=== PATIENT | female | born 2000 | race Caucasian/White ===

== ENCOUNTER 2023-11-06 13:27 | Outpatient (CLI) | payer BC, OTHER, SELFPAY ==
[2023-11-06 14:15] VITALS: BMI 41.1
[2023-11-06 14:24] VITALS: BMI 41.1
[2023-11-06 15:00] LABS: Basophils % 0.2 % (0.1-2.0); Eosinophils # 0.1 K/mm3 (0.0-0.4); Eosinophils % 0.9 % (0.1-12.0); Hematocrit 35.8 % (37.0-47.0); Hemoglobin 12.2 g/dL (12.2-16.2); Lymphocytes # 1.1 K/mm3 (0.7-4.5); Lymphocytes % 17.5 % (10-50); Mean Corpuscular HGB Conc 34.2 g/dL (31.8-35.4); Mean Corpuscular Hemoglobin 29.2 pg (27.0-31.2); Mean Corpuscular Volume 85.5 fl (81-99); Mean Platelet Volume 8.4 fl (7.4-10.4); Monocytes # 0.3 K/mm3 (0.1-1.0); Monocytes % 4.1 % (1.7-9.3); Neutrophils # 4.9 K/mm3 (1.8-7.8); Neutrophils % 77.3 % (37.0-80.0); Platelet Count 213 K/mm3 (142-424); Red Blood Count 4.19 M/mm3 (4.20-5.40); Red Cell Distribution Width 15.2 % (11.5-17.5); White Blood Count 6.4 K/mm3 (4.8-10.8)
[2023-11-06 15:07] LABS: Microscopic, Urine URINE MICROSCOPIC (MICROSCOPIC)
[2023-11-06 15:11] LABS: Fetal Membrane Rupture (Rapid) Negative (Negative)
[2023-11-06 15:28] LABS: Appearance,Urine CLEAR (Clear); Bilirubin,Urine Negative (Negative); Blood, Urine Negative (Negative); Color,Urine YELLOW (Yellow); Glucose,Urine (UA) Negative (Negative); Ketones,Urine 1+ (Negative); Leukocyte Esterase,Urine Negative (Negative); Nitrate,Urine Negative (Negative); PH,Urine 7.5 (5.0-8.5); Protein,Urine 2+ (Negative); Urobilinogen,Urine 0.2 EU/dl (0.2)
[2023-11-06 15:54] LABS: WBC,Urine Occasional #/hpf (0-3)
[2023-11-06 15:59] LABS: Amphetamine/Metha Screen,Urine Negative ng/ml (<1000); Benzodiazepines Screen,Urine Negative ng/ml (<200)
[2023-11-06 16:00] LABS: Barbiturates Screen,Urine Negative ng/ml (<200)
[2023-11-06 16:01] LABS: Cannabinoid Screen,Urine Negative ng/ml (<50); Methadone Screen,Urine Negative ng/ml (<300)
[2023-11-06 16:02] LABS: Cocaine Screen,Urine Negative ng/ml (<300)
[2023-11-06 16:03] LABS: Opiate Screen,Urine Negative ng/ml (<300); Phencyclidine Screen,Urine Negative ng/ml (<25)
[2023-11-08 06:05] LABS: Hepatitis B Surface Antigen Negative (Negative)
[2023-11-08 07:18] LABS: Rapid Plasma Reagin Ab Titer Non Reactive titer (NonRea<1:1)
[2023-11-08 11:12] LABS: HIV Screen 4th Generation wRfx Non Reactive (Non Reactive)
== END 2023-11-06 16:10 | disposition home or self-care (01) ==
LOC: OBOUT 13:35 → OB 13:37
PROVIDERS: Visit Provider Obstetrics & Gynecology
DX: O26.893 Other specified pregnancy related conditions, third trimester (principal); Z3A.36 36 weeks gestation of pregnancy
CPT/HCPCS: 36415; 59025; 80307; 81001; 84112; 85025; 86593; 86762; 86850; 87340; G0463

== ENCOUNTER 2023-11-09 22:24 | Outpatient (CLI) | payer BC, OTHER, SELFPAY ==
[2023-11-09 22:28] VITALS: BMI 41.1
[2023-11-09 22:38] LABS: Microscopic, Urine URINE MICROSCOPIC (MICROSCOPIC)
[2023-11-09 22:52] LABS: Appearance,Urine CLEAR (Clear); Bilirubin,Urine Negative (Negative); Blood, Urine Negative (Negative); Color,Urine YELLOW (Yellow); Glucose,Urine (UA) Negative (Negative); Ketones,Urine Negative (Negative); Leukocyte Esterase,Urine Negative (Negative); Nitrate,Urine Negative (Negative); PH,Urine 7.5 (5.0-8.5); Protein,Urine TRACE (Negative); Urobilinogen,Urine 0.2 EU/dl (0.2)
[2023-11-09 22:59] VITALS: BP 132/77; PULSE 79; RESP 18; TEMP 36.6; O2SAT 98; BMI 41.1
[2023-11-09 23:02] LABS: Bacteria,Urine Trace /lpf; WBC,Urine Occasional #/hpf (0-3)
[2023-11-09 23:03] LABS: Amphetamine/Metha Screen,Urine Negative ng/ml (<1000); Barbiturates Screen,Urine Negative ng/ml (<200)
[2023-11-09 23:04] LABS: Benzodiazepines Screen,Urine Negative ng/ml (<200)
[2023-11-09 23:05] LABS: Cannabinoid Screen,Urine Negative ng/ml (<50); Cocaine Screen,Urine Negative ng/ml (<300)
[2023-11-09 23:06] LABS: Methadone Screen,Urine Negative ng/ml (<300); Phencyclidine Screen,Urine Negative ng/ml (<25)
[2023-11-09 23:07] LABS: Opiate Screen,Urine Negative ng/ml (<300)
== END 2023-11-09 23:45 | disposition home or self-care (01) ==
LOC: OBOUT 22:25 → OB 22:26
PROVIDERS: PCP Obstetrics & Gynecology; Visit Provider Obstetrics & Gynecology
DX: O47.03 False labor before 37 completed weeks of gestation, third trimester (principal); Z3A.36 36 weeks gestation of pregnancy
CPT/HCPCS: 59025; 80307; 81001; G0463

== ENCOUNTER 2023-11-19 16:21 | Outpatient (CLI) | payer BC, SELFPAY ==
[2023-11-19 16:35] VITALS: BMI 41.1
[2023-11-19 16:40] LABS: Microscopic, Urine URINE MICROSCOPIC (MICROSCOPIC)
[2023-11-19 16:41] LABS: Appearance,Urine SL CLOUDY (Clear); Blood, Urine Negative (Negative); Color,Urine YELLOW (Yellow); Glucose,Urine (UA) Negative (Negative); Ketones,Urine 1+ (Negative); Leukocyte Esterase,Urine TRACE (Negative); Nitrate,Urine Negative (Negative); PH,Urine 6.5 (5.0-8.5); Protein,Urine 3+ (Negative); Specific Gravity, Urine 1.025 (1.005-1.030)
[2023-11-19 16:43] LABS: Bilirubin,Urine 2+ (Negative)
[2023-11-19 16:54] LABS: Amphetamine/Metha Screen,Urine Negative ng/ml (<1000)
[2023-11-19 16:55] LABS: Barbiturates Screen,Urine Negative ng/ml (<200); Benzodiazepines Screen,Urine Negative ng/ml (<200)
[2023-11-19 16:56] LABS: Cannabinoid Screen,Urine Negative ng/ml (<50)
[2023-11-19 16:57] LABS: Cocaine Screen,Urine Negative ng/ml (<300); Methadone Screen,Urine Negative ng/ml (<300)
[2023-11-19 16:58] LABS: Opiate Screen,Urine Negative ng/ml (<300); Phencyclidine Screen,Urine Negative ng/ml (<25)
[2023-11-19 17:00] VITALS: BP 131/84; PULSE 94; RESP 18; TEMP 37; O2SAT 94; BMI 41.1
[2023-11-19 17:10] LABS: RBC,Urine Occasional #/hpf (0-3); WBC,Urine Occasional #/hpf (0-3)
== END 2023-11-19 18:20 | disposition home or self-care (01) ==
LOC: OBOUT 16:23 → OB 16:23
PROVIDERS: Visit Provider Obstetrics & Gynecology
DX: O60.03 Preterm labor without delivery, third trimester (principal); Z3A.38 38 weeks gestation of pregnancy
CPT/HCPCS: 59025; 80307; 81001; G0463

== ENCOUNTER 2023-11-20 21:15 | Outpatient (CLI) | payer BC, OTHER, SELFPAY | END 2023-11-20 23:59 | PROVIDERS: PCP Obstetrics & Gynecology; Visit Provider Obstetrics & Gynecology | DX: Z34.93 Encounter for supervision of normal pregnancy, unspecified, third trimester (principal); Z3A.38 38 weeks gestation of pregnancy | CPT/HCPCS: 86403; 87086 ==

== ENCOUNTER 2023-11-21 10:02 | Outpatient (CLI) | payer BC, OTHER, SELFPAY ==
[2023-11-21 11:24] LABS: Thyroid Stimulating Hormone 4.54 uIU/mL (0.465-4.68)
== END 2023-11-21 23:59 ==
PROVIDERS: Visit Provider Obstetrics & Gynecology
DX: E06.3 Autoimmune thyroiditis (principal); O99.283 Endocrine, nutritional and metabolic diseases complicating pregnancy, third trimester; Z3A.38 38 weeks gestation of pregnancy
CPT/HCPCS: 36415; 84443

== ENCOUNTER 2023-11-22 05:40 | Outpatient (CLI) | payer BC, OTHER, SELFPAY ==
[2023-11-22 06:20] VITALS: BMI 42.9
[2023-11-22 06:44] LABS: Fetal Membrane Rupture (Rapid) Negative (Negative)
[2023-11-22 06:56] VITALS: BMI 42.9
[2023-11-22 07:03] VITALS: BP 124/64; PULSE 88; RESP 16; TEMP 36.6; O2SAT 98
== END 2023-11-22 08:40 | disposition home or self-care (01) ==
LOC: OBOUT 05:41 → OB 05:42
PROVIDERS: PCP Obstetrics & Gynecology; Visit Provider Obstetrics & Gynecology
DX: O26.893 Other specified pregnancy related conditions, third trimester (principal); Z3A.38 38 weeks gestation of pregnancy
CPT/HCPCS: 59025; 84112; G0463

== ENCOUNTER 2023-11-26 16:35 | Inpatient (IN) | payer BC, OTHER, SELFPAY ==
[2023-11-26 16:38] VITALS: BP 136/84; PULSE 77; RESP 17; TEMP 36.8; O2SAT 98; BMI 41.8
[2023-11-26 16:39] VITALS: BMI 41.8
[2023-11-26 16:47] LABS: Basophils % 0.3 % (0.1-2.0); Eosinophils # 0.1 K/mm3 (0.0-0.4); Eosinophils % 1.2 % (0.1-12.0); Hemoglobin 11.6 g/dL (12.2-16.2); Lymphocytes # 1.2 K/mm3 (0.7-4.5); Lymphocytes % 15.6 % (10-50); Mean Corpuscular HGB Conc 35.2 g/dL (31.8-35.4); Mean Corpuscular Volume 82.4 fl (81-99); Mean Platelet Volume 9.5 fl (7.4-10.4); Monocytes # 0.4 K/mm3 (0.1-1.0); Monocytes % 5.4 % (1.7-9.3); Neutrophils % 77.5 % (37.0-80.0); Platelet Count 201 K/mm3 (142-424); Red Blood Count 4.01 M/mm3 (4.20-5.40); Red Cell Distribution Width 14.8 % (11.5-17.5); White Blood Count 7.8 K/mm3 (4.8-10.8)
[2023-11-26] MEDS: miSOPROStol 100MCG TABLET 50 MCG VG ×2 (17:00→22:56)
[2023-11-26] MEDS: PHA TO NURSING INSTRUCTION 1 EACH NOTAPPLIC (20:03)
[2023-11-27] MEDS: BUTORPHANOL TARTRATE 2 MG/ML VIAL IV (02:17)
[2023-11-27] MEDS: DEXTROSE 5%-LACTATED RINGERS 1,000 ML 125 ML IV (02:17)
--- NOTE | 2023-11-27 05:36 | P.PNANES_ITS ---
[facility] Disclaimer: The information contained in this section may have been updated after the patient was seen, as this information can be updated by other users. Medical History ADHD Allergies Anxiety Anxiety disorder affecting , antepartum Asthma Asthma complicating , antepartum Depression Depression affecting Nelida's disease History of pre-eclampsia in prior , currently Hypothyroidism Hypothyroidism complicating Maternal obesity affecting , antepartum Surgical History S/P wisdom tooth extraction Family History Family/Other Cancer Mother Epilepsy Other Diabetes Social History (Updated 11/26/23 @ 19:51 by Elvia Naylor RN) Smoking Status: Never smoker alcohol intake: never substance use type: denies use current occupational status: unemployed Travel in the last 8 weeks: None [facility] Anesthesia Checklist Patient Identification Patient Identification: Arm Band, Family and Verbal (Name & ) Structural Data Admitted From: Inpatient (OB 278) Planned Operative Procedure/s: Labor Epidural Consent for Planned Operative Procedure(s) Verified: Yes Verified Documents: Surgical Consent and History and Physical NPO Status Verified Time NPO: 00:00 Chart Verification Results Verified: CBC Additional verifications Patient : Yes Anesthesia Reactions: No Cardiovascular Assessment Heart Sounds: S1 & S2 Pulse Rhythm: Irregular Peripheral Edema: Yes (2+ URSULA LE) Airway Assessment Mallampati Score:: Class II C-Spine Mobility Assessed: Yes (FROM) TMJ Mobility Assessed: Yes Dentition: Good Dentition (Nothing loose per pt.) Neurological Assessment Level of Consciousness: Awake, Alert, Appropriate and Follows Commands Hx Seizures: No Numbness or tingling in extremities: No Anesthesia Plan Anesthesia Risk discussed: Yes Anesthesia Plan: Verified ASA Class: III Anesthesia Type: Epidural
--- NOTE | 2023-11-27 05:38 | EXP.PN ---
Subjective *Date: 11/27/23 *Time: 05:39 Interval history: Labor Epidural Position: Sitting Prep: Betadine x 3 Level: attempted L4-5, then L3-4 Local to skin: Lido 1% x 3mL, then 2mL ARAM: to air @9cm Catheter taped @ skin: 19cm Neg. Heme, Neg. CSF, Neg. parasthesia Test dose: NEGATIVE w/Lido 1.5% w/Epi 1:200,000 x 5mL Bolus: Ropivicaine 0.2% x10mL w/ Fentanyl 50mcg QUARANTINE INSPECTOR: Ropivicaine 0.2% w/Fent 2mcg/mL @ 12mL/hr. Exam Data for Last 24 hours Vital signs and Labs for Last 24 Hours: Temp Pulse Resp BP Pulse Ox O2 Del Method 98.3 F 77 17 136/84 98 Room Air 11/26/23 16:38 11/26/23 16:38 11/26/23 16:38 11/26/23 16:38 11/26/23 16:38 11/26/23 16:38 Laboratory Results - last 24 hr 11/26/23 16:09: WBC 7.8, RBC 4.01 L, Hgb 11.6 L, Hct 33.0 L, MCV 82.4, MCH 29.0, MCHC 35.2, RDW 14.8, Plt Count 201, MPV 9.5, Neut % (Auto) 77.5, Lymph % (Auto) 15.6, Terry % (Auto) 5.4, Eos % (Auto) 1.2, Baso % (Auto) 0.3, Neut # (Auto) 6.0, Lymph # (Auto) 1.2, Terry # (Auto) 0.4, Eos # (Auto) 0.1, Baso # (Auto) 0.0, Blood Type O Positive, Antibody Screen Negative, Crossmatch (AHG) See Detail I & O for Last 24 hours: Intake & Output 11/24/23 11/25/23 11/26/23 11/27/23 23:59 23:59 23:59 23:59 Weight 110.677 kg
[2023-11-27] MEDS: LACTATED RINGERS 1000ML 1,000 ML 250 ML IV (06:11)
--- NOTE | 2023-11-27 07:32 | HMH.PHAINT1 ---
Pharmacy Intervention Comments: MEDICATION RECONCILIATION COMPLETED ON PATIENT USING EXTERNAL FILL HISTORY FROM PHARMACY. -ASHA RAM, TIFFANIED
--- NOTE | 2023-11-27 07:55 | EXP.OB.APHP ---
OB - H&P: HPI Antepartum History of Present Illness Chief complaint: Elective induction of labor History of present illness: Mrs Sheila Harris is a 23 yo at 39w2d who presents to [facility] Labor and Delivery for scheduled elective induction of labor. She received care in [place]. She transferred care to [facility] Women's health at 38 weeks. She reports uncomplicated . Good movement. History of Present Ultrasounds: normal mid trimester US Obstetrical complications: none Medical complications: none Labs Blood type: O (+) positive Rubella: immune RPR/VDRL: nonreactive GBS status: negative HBsAG: negative [facility] Disclaimer: The information contained in this section may have been updated after the patient was seen, as this information can be updated by other users. Medical History (Updated 11/27/23 @ 08:09 by Sheila Andrade DO) ADHD Allergies Anxiety Anxiety disorder affecting , antepartum Asthma Asthma complicating , antepartum Depression Depression affecting Encounter for elective induction of labor Nelida's disease History of pre-eclampsia in prior , currently Hypothyroidism Hypothyroidism complicating Maternal obesity affecting , antepartum with 39 completed weeks gestation Surgical History S/P wisdom tooth extraction Family History Family/Other Cancer Mother Epilepsy Other Diabetes Social History (Updated 11/27/23 @ 05:38 by Roxanna Vela CRNA) Smoking Status: Never smoker alcohol intake: never substance use type: denies use current occupational status: unemployed Travel in the last 8 weeks: None Review of Systems Review of Systems Review of systems:: pertinent systems reviewed and negative unless documented below *Genitourinary Comments: + irregular contractions, pelvic pressure *Musculoskeletal Musculoskeletal: Reports back pain Meds Home Medications and Allergies Home Medications Medication Instructions Recorded Confirmed Type fluoxetine 40 mg capsule (Prozac) 40 mg PO DAILY Mood 11/06/23 11/27/23 History levothyroxine 100 mcg tablet 100 mcg PO DAILY Thyroid 11/06/23 11/27/23 History montelukast 10 mg tablet 10 mg PO PM Allergy Symptoms 11/06/23 11/27/23 History (Miahir) New Prescriptions to Start Prescriptions: Allergies Allergy/AdvReac Type Severity Reaction Status Date / Time COVID-19 vaccine, Allergy Severe Anaphylaxis Verified 11/20/23 08:43 recombinant (Nova prochlorperazine Allergy Severe Other Verified 11/20/23 08:43 [From Compazine] influenza A (H5N1) virus AdvReac Severe Other Verified 11/20/23 08:43 vaccine mo ondansetron [From Zofran] AdvReac Nausea Verified 11/20/23 08:43 OB - H&P: Exam Physical Exam Vital signs: Temp Pulse Resp BP Pulse Ox O2 Del Method 98.3 F 77 17 136/84 98 Room Air 11/26/23 16:38 11/26/23 16:38 11/26/23 16:38 11/26/23 16:38 11/26/23 16:38 11/26/23 16:38 Constitutional no acute distress Routine HEENT Exam Head: Present normocephalic and atraumatic Eye: Absent conjunctivae pink ENT: Present mucous membranes moist Routine Neck Exam Present full ROM Routine Respiratory Exam Present CTA bilaterally and normal respiratory effort Routine Cardiovascular Exam Present RRR Routine Abdominal Exam Present soft (Gravid); Absent tenderness Routine Rectal Exam Patient deferred: visual exam Routine Exam External: Present normal urethra appearance; Absent erythema, tenderness, lesions or lacerations Routine Extremities Exam Present edema (+1 bilateral lower extremity edema) and full ROM; Absent calf tenderness Routine Neurological Exam Present alert, moving all extremities and normal speech Routine Psychiatric Exam Present normal affect and cooperative Detailed Labor and Delivery Exam Dilation (cm): 9 Effacement (%): 90 station: -1 Consistency: soft Membranes: artificially ruptured Amniotic fluid: clear Baseline heart rate: 140 monitor accelerations: Absent monitor decelerations: None medical terminologist variability: Moderate (11-25) Contraction frequency (min): 2 Tachysystole: No OB - Results Labs Labs: Short CBC 11/26/23 Range/Units 16:09 WBC 7.8 (4.8-10.8) K/mm3 Hgb 11.6 L (12.2-16.2) g/dL Hct 33.0 L (37.0-47.0) % Plt Count 201 (142-424) K/mm3 OB - A/P Antepartum (1) with 39 completed weeks gestation: Status: Acute (2) Encounter for elective induction of labor: Status: Acute (3) Asthma complicating , antepartum: Status: Acute (4) Anxiety disorder affecting , antepartum: Status: Acute (5) Maternal obesity affecting , antepartum: Status: Acute (6) Hypothyroidism complicating : Status: Acute (7) Depression affecting : Status: Acute (8) History of pre-eclampsia in prior , currently : Status: Acute Additional Plan Planning to breastfeed?: Yes Additional Information:: Admit to L&D for induction of labor with Cytotec followed by Pitocin GBS negative Close monitoring Anticipate
[2023-11-27] MEDS: OXYTOCIN/RINGERS LACTATE 30 UNITS/500 ML BAG 40 UNITS IV (08:55)
--- NOTE | 2023-11-27 09:08 | EXP.DN ---
Delivery Note Delivery Date:: 11/27/23 Delivery Time:: 08:50 Anesthesia Type: Epidural Was labor medically induced?: No Induction method: per misoprostol protocol Gestational age (weeks): 39 delivered prior to 39 weeks?: No Gender: Male at 1 minute: 7 at 5 minutes: 8 LAC or MLE?: MLE (Mediolateral episiotomy) Delivery Procedure:: Mom complete with epidural. Pushed for approximately 24 minutes. Tight perineal band and short perineum noted with history of prior 3rd degree laceration. Mediolateral episiotomy performed. Head delivered spontaneously over mediolateral episiotomy in DERRICK position. No nuchal cord. Posterior hand at baby's face and elbow at chest. Posterior arm was delivered and remainder of body delivered spontaneously. Baby placed on maternal abdomen, mouth and nares bulb suctioned, warmed/dried and stimulated. Delayed cord clamping was performed for 60 seconds. Cord was clamped and cut by father of baby. Section of cord was collected for cord gases. Cord blood was obtained. Placenta delivered spontaneously and intact. Mediolateral episiotomy repaired with 3-0 Vicryl. Hemostasis noted. Mom and baby were skin to skin and doing well after delivery. Live male baby (baby's name is Alta) APGARs 7 (1 min), 8 (5 min) EBL 250 mL Placental Delivery Description: Spontaneous
[2023-11-27 09:37] LABS: Cord Blood PH 7.18 (7.35-7.45)
[2023-11-27] MEDS: AMOXICILLIN 500MG CAPSULE 500 MG PO ×2 (10:08→16:46)
[2023-11-27] MEDS: IBUPROFEN 400 MG TABLET 800 MG PO ×2 (12:11→23:47)
[2023-11-27] MEDS: SENNA 8.6MG TABLET 8.59999999999999964 MG PO (12:12)
[2023-11-27] MEDS: ACETAMINOPHEN 500MG TAB 1000 MG PO ×3 (12:12→23:47)
[2023-11-27] MEDS: BENZOCAINE-MENTHOL SPRAY 56GM CAN TP (12:12)
[2023-11-27] MEDS: WITCH HAZEL 40 PADS/BOX 1 EACH TP (12:13)
[2023-11-27] MEDS: PRENATAL MULTIVITAMIN W/IRON 1 EACH PO (16:46)
[2023-11-27 16:49] VITALS: BP 132/91; PULSE 83; RESP 18; TEMP 36.6; O2SAT 98
[2023-11-27 20:16] VITALS: BP 138/78; PULSE 84; RESP 18; TEMP 36.7; O2SAT 99
[2023-11-28] MEDS: AMOXICILLIN 500MG CAPSULE 500 MG PO ×2 (03:37→10:51)
[2023-11-28 06:20] LABS: Basophils % 0.2 % (0.1-2.0); Eosinophils # 0.1 K/mm3 (0.0-0.4); Eosinophils % 1.3 % (0.1-12.0); Hematocrit 29.4 % (37.0-47.0); Hemoglobin 9.8 g/dL (12.2-16.2); Lymphocytes # 1.1 K/mm3 (0.7-4.5); Lymphocytes % 17.7 % (10-50); Mean Corpuscular HGB Conc 33.2 g/dL (31.8-35.4); Mean Corpuscular Hemoglobin 28.1 pg (27.0-31.2); Mean Corpuscular Volume 84.7 fl (81-99); Monocytes # 0.3 K/mm3 (0.1-1.0); Monocytes % 4.8 % (1.7-9.3); Neutrophils # 4.8 K/mm3 (1.8-7.8); Platelet Count 201 K/mm3 (142-424); Red Blood Count 3.47 M/mm3 (4.20-5.40); Red Cell Distribution Width 14.8 % (11.5-17.5); White Blood Count 6.3 K/mm3 (4.8-10.8)
[2023-11-28 08:15] VITALS: BP 135/76; PULSE 88; RESP 16; TEMP 36.5; O2SAT 97
[2023-11-28] MEDS: ACETAMINOPHEN 500MG TAB 1000 MG PO (08:24)
[2023-11-28] MEDS: IBUPROFEN 400 MG TABLET 800 MG PO (08:25)
[2023-11-28] MEDS: LANOLIN CREAM 40GM TP (08:25)
--- NOTE | 2023-11-28 08:26 | EXP.DC.SUM ---
General Admission date:: 11/26/23 Discharge date: 11/28/23 HPI HPI HPI: PPD # 1 s/p Sheila is resting comfortably this morning. Pain controlled with ibuprofen. Breast feeding. Lochia is appropriate. Voiding without difficulty and passing flatus. Tolerating regular diet. Denies fever/chills, chest pain and shortness of breath. No headaches, vision changes, lightheadedness/dizziness. Admits to lower extremity swelling that is improving. No calf pain. Ambulating well ad emeli. Hospital Course Hospital Course Hospital Course: Mrs Sheila Harris is a 23 yo at 39w2d who presents to [facility] Labor and Delivery for scheduled elective induction of labor. She received care in [place]. She transferred care to [facility] Women's health at 38 weeks. She reports uncomplicated . Good movement. She underwent induction of labor with Cytotec. GBS negative. She had a normal spontaneous vaginal delivery with mediolateral episiotomy. She delivered a live male baby, Alta, weighing 7 lb 10 oz. APGARs 7 (1 min), 8 (5 min). EBL 250 mL. She did well . Pain controlled with ibuprofen. Breast feeding. Lochia is appropriate. Voiding without difficulty and passing flatus. Tolerating regular diet. Denies fever/chills, chest pain and shortness of breath. No headaches, vision changes, lightheadedness/dizziness. Admits to lower extremity swelling that is improving. Vital signs stable, afebrile. Heart regular rate and rhythm. Lungs clear to auscultation. Abdomen soft, nontender. She had + 1 bilateral lower extremity edema. No calf pain. Ambulating well ad emeli. PPD # 1 Hgb was 9.8 (11.6 on admission). She received Venofer 200 mg IV x 1 dose. She was discharged home on PPD # 1 doing well with instructions to follow-up in the office in 2 weeks or sooner if needed. Exam Data for Last 24 hours Vital signs and Labs for Last 24 Hours: Temp Pulse Resp BP Pulse Ox O2 Del Method 98.1 F 84 18 138/78 99 Room Air 11/27/23 20:16 11/27/23 20:16 11/27/23 20:16 11/27/23 20:16 11/27/23 20:16 11/27/23 20:16 Laboratory Results - last 24 hr 11/27/23 09:15: Cord ABG pH 7.18 L* 11/28/23 05:23: WBC 6.3, RBC 3.47 L, Hgb 9.8 L, Hct 29.4 L, MCV 84.7, MCH 28.1, MCHC 33.2, RDW 14.8, Plt Count 201, MPV 10.0, Neut % (Auto) 76.0, Lymph % (Auto) 17.7, Norman % (Auto) 4.8, Eos % (Auto) 1.3, Baso % (Auto) 0.2, Neut # (Auto) 4.8, Lymph # (Auto) 1.1, Norman # (Auto) 0.3, Eos # (Auto) 0.1, Baso # (Auto) 0.0 I & O for Last 24 hours: Intake & Output 11/25/23 11/26/23 11/27/23 11/28/23 23:59 23:59 23:59 23:59 Weight 244 lb Constitutional Constitutional: no acute distress and cooperative *Routine HEENT Exam Head: Present normocephalic and atraumatic Eye: Absent conjunctivae pink ENT: Present mucous membranes moist *Routine Neck Exam Neck: Present full ROM *Routine Respiratory Exam Respiratory: Present CTA bilaterally and normal respiratory effort *Routine Cardiovascular Exam Cardiovascular: Present RRR *Routine Abdominal Exam Abdominal: Present soft; Absent tenderness or distended Comments: Uterine fundus firm and below umbilicus *Routine Rectal Exam Patient deferred: visual exam *Routine Exam Patient deferred: external exam *Routine Extremities Exam Extremities: Present edema (+1 bilateral lower extremity edema) and full ROM; Absent calf tenderness *Routine Neurological Exam Neurological: Present alert, moving all extremities and normal speech Routine Psychiatric Exam Psychiatric: Present normal affect and cooperative Results Data Completed and Pending Labs on day of discharge: Labs from last 24 hours 11/28/23 11/27/23 05:23 09:15 WBC 6.3 RBC 3.47 L Hgb 9.8 L Hct 29.4 L MCV 84.7 MCH 28.1 MCHC 33.2 RDW 14.8 Plt Count 201 MPV 10.0 Neut % (Auto) 76.0 Lymph % (Auto) 17.7 Norman % (Auto) 4.8 Eos % (Auto) 1.3 Baso % (Auto) 0.2 Neut # (Auto) 4.8 Lymph # (Auto) 1.1 Norman # (Auto) 0.3 Eos # (Auto) 0.1 Baso # (Auto) 0.0 Cord ABG pH 7.18 L* DS: Diagnosis Discharge Diagnosis (1) with 39 completed weeks gestation: Status: Acute Code(s): Z3A.39 - 39 weeks gestation of (2) Encounter for elective induction of labor: Status: Acute Code(s): Z34.90 - Encounter for supervision of normal , unspecified, unspecified trimester (3) Asthma complicating , antepartum: Status: Acute Code(s): O99.519 - Diseases of the respiratory system complicating , unspecified trimester; J45.909 - Unspecified asthma, uncomplicated (4) Anxiety disorder affecting , antepartum: Status: Acute Code(s): O99.340 - Other mental disorders complicating , unspecified trimester; F41.9 - Anxiety disorder, unspecified (5) Maternal obesity affecting , antepartum: Status: Acute Code(s): O99.210 - Obesity complicating , unspecified trimester Qualifiers: Obesity type affecting : unspecified obesity Qualified Code(s): O99.210 - Obesity complicating , unspecified trimester (6) Hypothyroidism complicating : Status: Acute Code(s): O99.280 - Endocrine, nutritional and metabolic diseases complicating , unspecified trimester; E03.9 - Hypothyroidism, unspecified Qualifiers: Trimester: third trimester Qualified Code(s): O99.283 - Endocrine, nutritional and metabolic diseases complicating , third trimester; E03.9 - Hypothyroidism, unspecified (7) Depression affecting : Status: Acute Code(s): O99.340 - Other mental disorders complicating , unspecified trimester; F32.A - Depression, unspecified (8) History of pre-eclampsia in prior , currently : Status: Acute Code(s): O09.299 - Supervision of with other poor reproductive or obstetric history, unspecified trimester (9) Acute blood loss anemia: Status: Acute Code(s): D62 - Acute posthemorrhagic anemia Meds Home Medications and Allergies Home Medications Medication Instructions Recorded Confirmed Type fluoxetine 40 mg capsule (Prozac) 40 mg PO DAILY Mood 11/06/23 11/27/23 History levothyroxine 100 mcg tablet 100 mcg PO DAILY Thyroid 11/06/23 11/27/23 History montelukast 10 mg tablet 10 mg PO PM Allergy Symptoms 11/06/23 11/27/23 History (Singulair) ibuprofen 800 mg tablet 800 mg PO Q8H PRN pain #20 tabs 11/28/23 Rx New Prescriptions to Start Prescriptions: Sheila Cleveland Allergies Allergy/AdvReac Type Severity Reaction Status Date / Time COVID-19 vaccine, Allergy Severe Anaphylaxis Verified 11/20/23 08:43 recombinant (Nova prochlorperazine Allergy Severe Other Verified 11/20/23 08:43 [From Compazine] influenza A (H5N1) virus AdvReac Severe Other Verified 11/20/23 08:43 vaccine mo ondansetron [From Zofran] AdvReac Nausea Verified 11/20/23 08:43 Discharge Plan Disposition Patient Disposition: Home, Self-Care Condition: Good Discharge Order Discharge Orders: Discharge Order (Routine); Ordered 11/28/23 Ordered By: Sheila Andrade Follow up Plan Follow up with: Sheila Andrade DO [Staff Physician] - Enter time for follow up Prescriptions/Medication Reconciliation: New ibuprofen 800 mg tablet 800 mg PO Q8H PRN (Reason: pain) Qty: 20 0RF Continued levothyroxine 100 mcg Tablet 100 mcg PO DAILY fluoxetine [Prozac] 40 mg Capsule 40 mg PO DAILY montelukast [Singulair] 10 mg Tablet 10 mg PO PM Problem Reconciliation Problems Reviewed?: Yes Patient Discharge Instructions ACTIVITY: Limited activity DIET: continue same diet and regular diet Additional Instructions: Discharge: 1. Take 800 mg Ibuprofen every 8 hours as needed for pain. You can also take 500-1000 mg of Tylenol in between doses, every 6-8 hours. 2. Nothing in the vagina for 6 weeks - no intercourse, douching or tampons. No tub baths/hot tubs or swimming pools 3. Reasons to return to L&D or call On-Call doctor - fever (greater than 100.4) - heavy vaginal bleeding (soaking through 1 pad in less than 2 hours) - vaginal discharge (malodorous and/or purulent) - severe headaches not resolved by medication or rest and leg tenderness/edema 4. depression/blues - Normal to feel anxious/overwhelmed for first 2 weeks - Talk to your doctor if: severe anxiety, trouble bonding with baby, withdrawing from other family members, thoughts of harming yourself or others Sheila Andrade DO [facility] [phone] Patient Instructions: Depression, Hemorrhage, DI for Labor and Delivery, Vaginal , DI for Pre-eclampsia, [facility] Post Discharge Instructions Providers Primary Care Provider: Provider,Referral Admit Provider: Sheila Andrade Attending Provider: Sheila Andrade
[2023-11-28] MEDS: IRON SUCROSE COMPLEX 200 MG in 0.9 % SODIUM CHLORIDE 100 ML 220 MG IV (09:26)
--- NOTE | 2023-11-28 10:08 | SW/DCPLANNER ---
I received a referral on this patient regarding lack/limited care. Patient delivered male on 11/27/2023: Alta BurnettLencho Harris. 's father (Sandro Harris 99) was present at the time of my visit. Patient, Sandro, and Sandro parents (Aaron and Lee Ann Louise) will reside at [address] [place] [address] in [place] [address]. Patient also stated that her daughter (Sasha Taylor) will also reside w/ them: she is w/ her father 50/50. Patient is currently established w/ WIC and has the following items at home: crib, carseat, clothing, diapers and will be breast feeding. PED MD will be Dr Zhong and patient stated that she will have transportation to all follow up appointments. Patient is planned to discharge today and tomorrow 11/29/23. Patient stated the reasoning for limited care was due to moving to [place] and issues w/ her insurance. Per OB staff (Tabatha) patient is appropriate w/ .
== END 2023-11-28 16:05 | disposition home or self-care (01) | DRG 807 ==
PROVIDERS: Admitting Provider Obstetrics & Gynecology; Visit Provider Obstetrics & Gynecology
DX: O99.284 Endocrine, nutritional and metabolic diseases complicating childbirth (principal); Z37.0 Single live birth; O99.344 Other mental disorders complicating childbirth; F32.A Depression, unspecified; O99.214 Obesity complicating childbirth
CPT/HCPCS: 59409; 36415; 59025; 82800; 85025; 86850; 94761; G0283; J1756

== ENCOUNTER 2023-12-01 15:05 | Outpatient (CLI) | payer BC, OTHER, SELFPAY ==
[2023-12-01] VITALS (12 sets, daily range): BP systolic 129–151; BP diastolic 69–104; PULSE 70–87; RESP 18; TEMP 36.3–36.7; O2SAT 98; BMI 42.7
[2023-12-01 15:56] LABS: Microscopic, Urine URINE MICROSCOPIC (MICROSCOPIC)
[2023-12-01 15:58] LABS: Basophils % 0.2 % (0.1-2.0); Eosinophils # 0.3 K/mm3 (0.0-0.4); Eosinophils % 3.4 % (0.1-12.0); Hematocrit 29.7 % (37.0-47.0); Hemoglobin 9.9 g/dL (12.2-16.2); Lymphocytes # 1.5 K/mm3 (0.7-4.5); Lymphocytes % 19.1 % (10-50); Mean Corpuscular HGB Conc 33.5 g/dL (31.8-35.4); Mean Corpuscular Hemoglobin 28.7 pg (27.0-31.2); Mean Corpuscular Volume 85.8 fl (81-99); Monocytes # 0.4 K/mm3 (0.1-1.0); Monocytes % 4.9 % (1.7-9.3); Neutrophils # 5.5 K/mm3 (1.8-7.8); Neutrophils % 72.4 % (37.0-80.0); Platelet Count 253 K/mm3 (142-424); Red Blood Count 3.46 M/mm3 (4.20-5.40); Red Cell Distribution Width 15.2 % (11.5-17.5); White Blood Count 7.7 K/mm3 (4.8-10.8)
[2023-12-01 15:59] LABS: Appearance,Urine CLEAR (Clear); Bilirubin,Urine Negative (Negative); Blood, Urine 2+ (Negative); Color,Urine YELLOW (Yellow); Glucose,Urine (UA) Negative (Negative); Ketones,Urine Negative (Negative); Leukocyte Esterase,Urine Negative (Negative); Nitrate,Urine Negative (Negative); PH,Urine 6.5 (5.0-8.5); Protein,Urine TRACE (Negative); Specific Gravity, Urine >= 1.030 (1.005-1.030)
[2023-12-01 16:02] LABS: Chloride 107 mmol/L (98-107); Potassium 4.2 mmoL/L (3.5-5.1); Sodium 136 mmol/L (136-145)
[2023-12-01 16:05] LABS: Alanine Aminotransferase 20 U/L (12-78); Albumin Level 3.2 g/dl (3.5-5.0); Albumin/Globulin Ratio 1.1 (1.1-1.8); Alkaline Phosphatase 148 U/L (38-126); Anion Gap 9.2 mEq/L (5-15); Aspartate Amino Transferase 31 U/L (14-36); Bilirubin,Total 0.2 mg/dl (0.2-1.3); Blood Urea Nitrogen 17 mg/dl (7-17); Carbon Dioxide 24 mmol/L (22.0-30.0); Creatinine Clearance Estimated 75 mL/min (50-200); Estimated Glomerular Filt Rate 68 ml/min (>60); GFR (African American) 82 ML/MIN (>60); Globulin 2.8 g/dL (1.3-3.2)
[2023-12-01 16:06] LABS: Calcium 8.5 mg/dl (8.4-10.2); Glucose 94 mg/dl (74-100)
--- NOTE | 2023-12-01 16:11 | CA_ITS ---
FINAL REPORT TECHNIQUE: Color Doppler, duplex Doppler and compression sonography of the left lower extremity deep venous systems was performed. CLINICAL HISTORY: edema 4 days PP, possible DVT, Obesity FINDINGS: There is no evidence of deep venous thrombosis from the level of the groin to the calf. The veins are patent and compressible. IMPRESSION: No evidence of deep venous thrombosis left lower extremity. Reviewed, Interpreted and Dictated by Devan Garcia III, MD Transcribed by Maria Luisa Michel Authenticated and [facility]
[2023-12-01 16:28] LABS: Creatinine,Urine Random 182 mg/dL (Not Estab.)
[2023-12-01 16:58] LABS: Squamous Epithelial Cell,Urine Occasional #/hpf (0-5)
[2023-12-01] MEDS: LACTATED RINGERS 1000ML 1,000 ML 999 ML IV (17:35)
[2023-12-01] MEDS: ACETAMINOPHEN 1,000 MG/100 ML ML 400 MG IV (17:36)
--- NOTE | 2023-12-01 19:30 | PC.NURSE ---
PT REPORTS SHE FEELS BETTER,DENIES ANY HEADACHE NOW.DENIES ANY VISUAL DISTURBANCES.PT NEEDING TO GO TO BATHROOM.B/P PRIOR TO GOING TO BATHROOM.135/88,P-76,RESP.18.T-[id number]
== END 2023-12-01 19:45 | disposition home or self-care (01) ==
LOC: OBOUT 15:07 → OB 15:11
PROVIDERS: Obstetrics & Gynecology; Visit Provider Obstetrics & Gynecology
DX: O12.05 Gestational edema, complicating the puerperium (principal); O16.5 Unspecified maternal hypertension, complicating the puerperium
CPT/HCPCS: 36415; 80053; 81001; 82570; 84155; 84550; 85025; 93971; 96365; 96367; G0463; J0131

== ENCOUNTER 2024-01-10 15:52 | Outpatient (CLI) | payer OTHER, SELFPAY ==
[2024-01-10 16:59] LABS: Thyroid Stimulating Hormone 0.12 uIU/mL (0.465-4.68)
== END 2024-01-10 23:59 ==
LOC: LAB 15:52
PROVIDERS: PCP Nurse Practitioner Family; Visit Provider Obstetrics & Gynecology
DX: R09.89 Other specified symptoms and signs involving the circulatory and respiratory systems (principal); E03.9 Hypothyroidism, unspecified; Z39.2 Encounter for routine postpartum follow-up
CPT/HCPCS: 36415; 84443

== ENCOUNTER 2024-02-14 17:01 | Outpatient (CLI) | payer OTHER, SELFPAY ==
[2024-02-14 17:18] LABS: Basophils # 0.1 K/mm3 (0-0.2); Basophils % 0.7 % (0.1-2.0); Eosinophils # 0.4 K/mm3 (0.0-0.4); Eosinophils % 5.6 % (0.1-12.0); Hematocrit 38.9 % (37.0-47.0); Hemoglobin 12.5 g/dL (12.2-16.2); Lymphocytes # 1.6 K/mm3 (0.7-4.5); Lymphocytes % 23.6 % (10-50); Mean Corpuscular Hemoglobin 26.4 pg (27.0-31.2); Mean Corpuscular Volume 82.5 fl (81-99); Mean Platelet Volume 7.4 fl (7.4-10.4); Monocytes # 0.3 K/mm3 (0.1-1.0); Neutrophils # 4.4 K/mm3 (1.8-7.8); Neutrophils % 66.1 % (37.0-80.0); Platelet Count 287 K/mm3 (142-424); Red Blood Count 4.72 M/mm3 (4.20-5.40); Red Cell Distribution Width 15.9 % (11.5-17.5); White Blood Count 6.7 K/mm3 (4.8-10.8)
[2024-02-14 18:17] LABS: Iron 74 ug/dL (37-170)
[2024-02-14 18:27] LABS: Total Iron Binding Capacity 312 ug/dL (265-497)
[2024-02-14 18:36] LABS: T4 (Thyroxine) 5.8 ug/dl (5.53-11.0)
[2024-02-14 18:51] LABS: Thyroid Stimulating Hormone 4.45 uIU/mL (0.465-4.68)
[2024-02-14 18:54] LABS: Ferritin 53.6 ng/ml (6.24-137)
== END 2024-02-14 23:59 | disposition home or self-care (01) ==
LOC: LAB 17:01
PROVIDERS: PCP Family Medicine; Visit Provider Family Medicine
DX: R30.9 Painful micturition, unspecified (principal); D62 Acute posthemorrhagic anemia; E03.9 Hypothyroidism, unspecified; B96.89 Other specified bacterial agents as the cause of diseases classified elsewhere
CPT/HCPCS: 36415; 82728; 83540; 83550; 84436; 84443; 85025; 87086

== ENCOUNTER 2024-10-04 09:40 | Outpatient (CLI) | payer OTHER, SELFPAY ==
[2024-10-04 16:31] LABS: Albumin Level 4.7 g/dl (3.5-5.0); Chloride 107 mmol/L (98-107); Potassium 3.8 mmoL/L (3.5-5.1); Sodium 140 mmol/L (136-145)
[2024-10-04 16:33] LABS: Blood Urea Nitrogen 11 mg/dl (7-17); Estimated Glomerular Filt Rate 76 ml/min (>60); GFR (African American) 92 ML/MIN (>60)
[2024-10-04 16:34] LABS: Alanine Aminotransferase 9 U/L (12-78); Albumin/Globulin Ratio 1.9 (1.1-1.8); Alkaline Phosphatase 101 U/L (38-126); Anion Gap 10.8 mEq/L (5-15); Aspartate Amino Transferase 20 U/L (14-36); Bilirubin,Total 0.6 mg/dl (0.2-1.3); Calcium 9.3 mg/dl (8.4-10.2); Carbon Dioxide 26 mmol/L (22.0-30.0); Globulin 2.5 g/dL (1.3-3.2); Glucose 92 mg/dl (74-100); Total Protein,Serum 7.2 g/dl (6.3-8.2)
[2024-10-04 17:05] LABS: Thyroid Stimulating Hormone 4.54 uIU/mL (0.465-4.68)
[2024-10-04 17:22] LABS: Basophils % 0.7 % (0.1-2.0); Eosinophils # 0.2 K/mm3 (0.0-0.4); Eosinophils % 6.2 % (0.1-12.0); Hematocrit 42.7 % (37.0-47.0); Lymphocytes % 26.8 % (10-50); Mean Corpuscular HGB Conc 32.7 g/dL (31.8-35.4); Mean Corpuscular Hemoglobin 26.4 pg (27.0-31.2); Mean Corpuscular Volume 80.7 fl (81-99); Monocytes # 0.3 K/mm3 (0.1-1.0); Monocytes % 6.5 % (1.7-9.3); Neutrophils # 2.3 K/mm3 (1.8-7.8); Neutrophils % 59.8 % (37.0-80.0); Platelet Count 166 K/mm3 (142-424); Red Blood Count 5.29 M/mm3 (4.20-5.40); Red Cell Distribution Width 15.1 % (11.5-17.5); White Blood Count 3.9 K/mm3 (4.8-10.8)
== END 2024-10-04 23:59 | disposition home or self-care (01) ==
LOC: LAB.DROPOF 10-05 09:11
PROVIDERS: PCP Family Medicine; Visit Provider Family Medicine
DX: E03.9 Hypothyroidism, unspecified (principal)
CPT/HCPCS: 80050; 80053; 84443; 85025

== ENCOUNTER 2024-10-30 05:28 | Emergency (ER) | payer OTHER, SELFPAY ==
[2024-10-30] VITALS (11 sets, daily range): BP systolic 136–150; BP diastolic 89–108; PULSE 49–87; RESP 18–22; TEMP 36.5–36.8; O2SAT 76–97; BMI 34.3
--- NOTE | 2024-10-30 05:38 | ED_ITS ---
Discharge Plan Disposition Patient Disposition: Home, Self-Care Condition: Good Prescriptions Prescriptions: New prednisone 50 mg tablet 50 mg PO DAILY 4 Days Qty: 4 0RF benzonatate 100 mg capsule 100 mg PO TID PRN (Reason: cough) Qty: 30 0RF No Action fluoxetine [Prozac] 40 mg capsule 40 mg PO DAILY Qty: 90 2RF montelukast [Singulair] 10 mg tablet 10 mg PO PM Qty: 90 2RF phentermine [Adipex-P] 37.5 mg tablet 37.5 mg PO DAILY Qty: 30 3RF Rx Instructions: must administer 30 minutes before or 1-2 hours after breakfast levothyroxine 50 mcg tablet 50 mcg PO DAILY 30 Days Qty: 30 0RF Referrals Follow up/Referrals: Sanford Miller MD [Primary Care Provider] - See instructions Activity Restrictions/Add. Instructions Additional Instructions/Restrictions: Take the medications as prescribed for continued treatment of your upper respiratory infection. Use your albuterol inhaler as needed. Please follow up with your primary care provider in 2-3 days. Please return to ED if your symptoms worsen, change in location, change in severity, new symptoms develop or if you become concerned for your health. Clinical Impressions Clinical Impression: URI, acute, Asthma Instructions Patient Instructions: DI for Acute Bronchitis Print Language Print Language: Portuguese Discharge ED Provider: Allison Padron General Adult HPI <Justo Karimi MD - Last Filed: 10/30/24 06:56> General Chief complaint: Upper Respiratory Infection Stated complaint: cough, lung pain, no taste Time Seen by Provider: 10/30/24 05:38 History of Present Illness HPI narrative: 24-year-old female with history of asthma and hypothyroidism presents for URI symptoms. She reports that she has not been able to taste her food. She reports that every time she gets sick her asthma flares up and she has been coughing and more short of breath than normal today. Denies fever at home. Related Data Previous Rx's ?Medication ?Instructions ?Recorded fluoxetine 40 mg capsule (Prozac) 40 mg PO DAILY Mood #90 caps 12/21/23 montelukast 10 mg tablet 10 mg PO PM Allergy Symptoms #90 12/21/23 (Singulair) tabs phentermine 37.5 mg tablet 37.5 mg PO DAILY Weight loss #30 10/04/24 (Adipex-P) tabs levothyroxine 50 mcg tablet 50 mcg PO DAILY 30 days #30 tabs 10/07/24 benzonatate 100 mg capsule 100 mg PO TID PRN cough #30 caps 10/30/24 prednisone 50 mg tablet 50 mg PO DAILY 4 days #4 tabs 10/30/24 Allergies Allergy/AdvReac Type Severity Reaction Status Date / Time COVID-19 vaccine, Allergy Severe Anaphylaxis Verified 10/04/24 09:41 recombinant (Nova prochlorperazine (From Allergy Severe Other Verified 10/04/24 09:41 Compazine) influenza A (H5N1) virus AdvReac Severe Other Verified 10/04/24 09:41 vaccine mo ondansetron (From Zofran) AdvReac Nausea Verified 10/04/24 09:41 [facility] <Justo Karimi MD - Last Filed: 10/30/24 06:56> [facility] Disclaimer: The information contained in this section may have been updated after the patient was seen, as this information can be updated by other users. Medical History Encounter for IUD insertion Kyleena IUD inserted 05/08/24 Acute blood loss anemia ADHD Hypothyroidism Asthma Nelida's disease Anxiety Depression Allergies Surgical History S/P wisdom tooth extraction Family History Family/Other Cancer cervical-paternal side Mother Epilepsy Other Diabetes Social History Smoking Status: Never smoker alcohol intake: never substance use type: denies use current occupational status: unemployed Travel in the last 8 weeks: Inside the [place] Have you lived/traveled outside [place] in past 30 days?: No Contact w/someone who lives/traveled outside [place] past 30 days?: No Exposure to someone with infectious disease in past 14 days?: No Do you have a fever (greater than 100.4 F or 38 C)?: No Have you tested positive for COVID-19: No Exposed to someone with COVID-19 in past 14 days?: No Do you have a sore throat?: No Do you have a cough?: Yes Do you have any weakness?: No Do you have any diarrhea?: No Are you experiencing any unusual bleeding?: No Do you have any muscle aches/pain?: No Do you have any abdominal pain?: No Are you experiencing loss of taste or smell?: Yes Other Medical History Have you received the Flu Vaccine for this season: No Have you received the Pneumonia Vaccine: No <Justo Karimi MD - Last Filed: 10/30/24 06:56> ROS Obtained: Yes All systems reviewed & no additional complaints except as documented Physical Exam <Justo Karimi MD - Last Filed: 10/30/24 06:56> General General appearance: alert and in no apparent distress Head Head exam: atraumatic and normocephalic Eye Eye exam: Present normal appearance, PERRL and EOMI ENT ENT exam: Present normal oropharynx and normal external ear exam Neck Neck exam: Present normal inspection and full ROM Chest Chest inspection: Present normal inspection and symmetric chest wall rise; Absent tenderness Respiratory Respiratory exam: Present normal lung sounds bilaterally; Absent respiratory distress Cardiovascular Cardiovascular exam: Present regular rate and normal rhythm Abdominal Exam Abdominal exam: Present soft; Absent distention, tenderness or guarding Extremities Exam Extremities exam: Present normal inspection; Absent edema or joint swelling Back Exam Back exam: Present normal inspection; Absent tenderness Neurological Exam Neurological exam: Present alert and oriented X3; Absent motor sensory deficit Psychiatric Psychiatric exam: Present normal affect and normal mood Skin Skin exam: Present warm, dry and normal color Lymphatic Lymphatic Findings: no adenopathy Medical Decision Making <Justo Karimi MD - Last Filed: 10/30/24 06:56> Medical Records Medical records reviewed: Yes I reviewed the patient's medical records. Screening: Per USPSTF and CDC recommendations, given the prevalence of disease in our region, it is our hospital?s policy to screen for HIV and viral Hepatitis for all patients aged 18 and over and those with ongoing risk factors. Andrés Inquiry Pt receiving controlled substance: No Andrés was queried for this patient: No Vital Signs: 10/30/24 05:31 10/30/24 05:38 10/30/24 05:45 Temperature 97.7 F Temperature Source Oral Pulse Rate 83 81 Pulse Rate [Apical] 78 Respiratory Rate 18 22 Blood Pressure 150/99 H 136/91 H Blood Pressure [Right Arm] 144/99 H Blood Pressure Mean [Right Arm] 114 Blood Pressure Source Blood Pressure Position 02 Sat by Pulse Oximetry 96 97 94 L Oxygen Delivery Method Room Air Room Air 10/30/24 06:00 10/30/24 06:10 10/30/24 06:10 Temperature Temperature Source Pulse Rate 78 85 85 Pulse Rate [Apical] Respiratory Rate Blood Pressure 136/108 H Blood Pressure [Right Arm] Blood Pressure Mean [Right Arm] Blood Pressure Source Blood Pressure Position 02 Sat by Pulse Oximetry 96 Oxygen Delivery Method 10/30/24 06:15 10/30/24 06:30 10/30/24 06:45 Temperature Temperature Source Pulse Rate 49 L 87 74 Pulse Rate [Apical] Respiratory Rate Blood Pressure 150/99 H 147/95 H 147/94 H Blood Pressure [Right Arm] Blood Pressure Mean [Right Arm] Blood Pressure Source Blood Pressure Position 02 Sat by Pulse Oximetry 76 L 96 96 Oxygen Delivery Method 10/30/24 07:00 10/30/24 07:31 Temperature 98.3 F Temperature Source Oral Pulse Rate 75 82 Pulse Rate [Apical] Respiratory Rate 18 Blood Pressure 137/89 139/92 H Blood Pressure [Right Arm] Blood Pressure Mean [Right Arm] Blood Pressure Source Automatic Cuff Blood Pressure Position Sitting 02 Sat by Pulse Oximetry 95 95 Oxygen Delivery Method Room Air Lab Data Lab results reviewed: Yes I reviewed the patient's lab results. Lab Results 10/30/24 05:35: SARS-CoV-2 (PCR) Not detected, Influenza A Untype (PCR) Not detected, Influenza Type B (PCR) Not detected Orders (Tests/Meds): ED MEDICATIONS Discontinued Medications Generic Name Dose Route Start Last Admin Trade Name Bernardo PRN Reason Stop Dose Admin Albuterol/Ipratropium 3 ml 10/30/24 05:43 10/30/24 06:09 Ipratropium/Albuterol 3 Ml Neb 10/30/24 05:44 3 ml ONCE ONE Administration Prednisone 60 mg 10/30/24 05:43 10/30/24 05:53 Prednisone 20mg Tab PO 10/30/24 05:44 60 mg ONCE ONE Administration ORDERS Category Date Time Status CXR --portable [XR chest portable] Stat Exams 10/30/24 05:43 Completed Rapid PCR Covid and Flu A/B Stat Lab 10/30/24 05:35 Completed Medical Decision Narrative: 24-year-old female with history of asthma presents with upper respiratory symptoms and worsening shortness of breath. History was obtained via interactive discussion with patient, chart review. On arrival, patient is [afebrile, hemodynamically stable, satting appropriately, alert, oriented x4, GCS 15], moving all extremities spontaneously. Full physical exam performed and s ignificant for no significant wheezing on lung exam Differential includes but is not limited to viral/bacterial pneumonia, asthma exacerbation. Patient was given prednisone, DuoNeb for symptomatic management and correction of underlying abnormalities. Workup initiated including chest x-ray COVID swab. On re-evaluation, patient [remains afebrile, HD stable.] X-ray interpreted by me, no evidence of bacterial pneumonia. At this time care handed off to oncoming physician. <Allison Padron MD - Last Filed: 10/30/24 07:42> Vital Signs: 10/30/24 05:31 10/30/24 05:38 10/30/24 05:45 Temperature 97.7 F Temperature Source Oral Pulse Rate 83 81 Pulse Rate [Apical] 78 Respiratory Rate 18 22 Blood Pressure 150/99 H 136/91 H Blood Pressure [Right Arm] 144/99 H Blood Pressure Mean [Right Arm] 114 Blood Pressure Source Blood Pressure Position 02 Sat by Pulse Oximetry 96 97 94 L Oxygen Delivery Method Room Air Room Air 10/30/24 06:00 10/30/24 06:10 10/30/24 06:10 Temperature Temperature Source Pulse Rate 78 85 85 Pulse Rate [Apical] Respiratory Rate Blood Pressure 136/108 H Blood Pressure [Right Arm] Blood Pressure Mean [Right Arm] Blood Pressure Source Blood Pressure Position 02 Sat by Pulse Oximetry 96 Oxygen Delivery Method 10/30/24 06:15 10/30/24 06:30 10/30/24 06:45 Temperature Temperature Source Pulse Rate 49 L 87 74 Pulse Rate [Apical] Respiratory Rate Blood Pressure 150/99 H 147/95 H 147/94 H Blood Pressure [Right Arm] Blood Pressure Mean [Right Arm] Blood Pressure Source Blood Pressure Position 02 Sat by Pulse Oximetry 76 L 96 96 Oxygen Delivery Method 10/30/24 07:00 10/30/24 07:31 Temperature 98.3 F Temperature Source Oral Pulse Rate 75 82 Pulse Rate [Apical] Respiratory Rate 18 Blood Pressure 137/89 139/92 H Blood Pressure [Right Arm] Blood Pressure Mean [Right Arm] Blood Pressure Source Automatic Cuff Blood Pressure Position Sitting 02 Sat by Pulse Oximetry 95 95 Oxygen Delivery Method Room Air Lab Data Lab Results 10/30/24 05:35: SARS-CoV-2 (PCR) Not detected, Influenza A Untype (PCR) Not detected, Influenza Type B (PCR) Not detected Orders (Tests/Meds): ED MEDICATIONS Discontinued Medications Generic Name Dose Route Start Last Admin Trade Name Bernardo PRN Reason Stop Dose Admin Albuterol/Ipratropium 3 ml 10/30/24 05:43 10/30/24 06:09 Ipratropium/Albuterol 3 Ml Neb IH 10/30/24 05:44 3 ml ONCE ONE Administration Prednisone 60 mg 10/30/24 05:43 10/30/24 05:53 Prednisone 20mg Tab PO 10/30/24 05:44 60 mg ONCE ONE Administration ORDERS Category Date Time Status CXR --portable [XR chest portable] Stat Exams 10/30/24 05:43 Completed Rapid PCR Covid and Flu A/B Stat Lab 10/30/24 05:35 Completed Medical Decision Narrative: 24-year-old female with history of asthma presents with upper respiratory symptoms and worsening shortness of breath. History was obtained via interactive discussion with patient, chart review. On arrival, patient is [afebrile, hemodynamically stable, satting appropriately, alert, oriented x4, GCS 15], moving all extremities spontaneously. Full physical exam performed and significant for no significant wheezing on lung exam Differential includes but is not limited to viral/bacterial pneumonia, asthma exacerbation. Patient was given prednisone, DuoNeb for symptomatic management and correction of underlying abnormalities. Workup initiated including chest x-ray COVID swab. On re-evaluation, patient [remains afebrile, HD stable.] X-ray interpreted by me, no evidence of bacterial pneumonia. At this time care handed off to oncoming physician. 0700: I assumed care of the pt and upon evaluation, she is moving adequate air on RA. Pt informed we are awaiting result of respiratory swab. Patient's respiratory swab negative for flu/COVID, no specific antiviral indicated at this time. Patient advised to continue to follow-up with her primary care doctor in the next few days for reevaluation and reassessment of her shortness of air given her history of asthma. Patient requesting Tessalon Perles which have been sent to her local pharmacy. Patient discharged in stable condition. Allison Padron MD PGY-3, Emergency Medicine Procedures <Justo Karimi MD - Last Filed: 10/30/24 06:56> Risk/Benefits of Procedure(s) Were Explained: Yes Critical Care <Justo Karimi MD - Last Filed: 10/30/24 06:56> Critical Care Time Critical Care Time: No
--- NOTE | 2024-10-30 05:43 | XR_ITS ---
PROCEDURE INFORMATION: Exam: XR Chest Exam date and time: 10/30/2024 5:52 AM Age: 24 years old Clinical indication: Shortness of breath; Additional info: Asthma SOA TECHNIQUE: Imaging protocol: Radiologic exam of the chest. Views: 1 view. COMPARISON: No relevant prior studies available. FINDINGS: Lungs: Unremarkable. No consolidation. Pleural spaces: Unremarkable. No pleural effusion. No pneumothorax. Heart/Mediastinum: Unremarkable. No cardiomegaly. Bones/joints: Unremarkable. IMPRESSION: No acute findings.
[2024-10-30] MEDS: predniSONE 20MG TAB 60 MG PO (05:53)
[2024-10-30] MEDS: IPRATROPIUM/ALBUTEROL 3 ML NEB IH (06:09)
[2024-10-30 06:39] LABS: Coronavirus 19, PCR Not Detected (NotDetected); Influenza A, PCR Not Detected (NotDetected); Influenza B, PCR Not Detected (NotDetected)
== END 2024-10-30 07:45 | disposition home or self-care (01) ==
PROVIDERS: Emergency Medicine; Emergency Provider Student in an Organized Health Care Education/Training Program; PCP Family Medicine
DX: J45.909 Unspecified asthma, uncomplicated (principal); J06.9 Acute upper respiratory infection, unspecified; R05.9 Cough, unspecified; R06.02 Shortness of breath; R43.9 Unspecified disturbances of smell and taste
CPT/HCPCS: 71045; 87636; 99283; J7620

== ENCOUNTER 2024-11-23 13:16 | Emergency (ER) | payer OTHER, SELFPAY ==
[2024-11-23] VITALS (10 sets, daily range): BP systolic 107–128; BP diastolic 63–87; PULSE 81–112; RESP 18–20; TEMP 36.7; O2SAT 95–99; BMI 36.0
[2024-11-23 13:42] LABS: Microscopic, Urine URINE MICROSCOPIC (MICROSCOPIC)
[2024-11-23 13:46] LABS: Basophils % 0.1 % (0.1-2.0); Eosinophils # 0.1 K/mm3 (0.0-0.4); Eosinophils % 1.8 % (0.1-12.0); Hematocrit 39.4 % (37.0-47.0); Hemoglobin 12.8 g/dL (12.2-16.2); Lymphocytes # 1.1 K/mm3 (0.7-4.5); Mean Corpuscular HGB Conc 32.5 g/dL (31.8-35.4); Mean Corpuscular Hemoglobin 25.9 pg (27.0-31.2); Mean Corpuscular Volume 79.8 fl (81-99); Mean Platelet Volume 9.3 fl (7.4-10.4); Monocytes # 0.5 K/mm3 (0.1-1.0); Monocytes % 7.1 % (1.7-9.3); Neutrophils # 5.4 K/mm3 (1.8-7.8); Neutrophils % 75.6 % (37.0-80.0); Platelet Count 221 K/mm3 (142-424); Red Blood Count 4.94 M/mm3 (4.20-5.40); Red Cell Distribution Width 14.6 % (11.5-17.5); White Blood Count 7.1 K/mm3 (4.8-10.8)
[2024-11-23] MEDS: MORPHINE 4MG/ML SYRINGE 4 MG IV (13:57)
[2024-11-23] MEDS: ONDANSETRON 4MG/2ML VIAL 4 MG IV (13:57)
--- NOTE | 2024-11-23 14:11 | [facility].EDGENADL ---
Discharge Plan Disposition Patient Disposition: Home, Self-Care Prescriptions Prescriptions: New cefdinir 300 mg capsule 300 mg PO BID 10 Days Qty: 20 0RF No Action fluoxetine [Prozac] 40 mg capsule 40 mg PO DAILY Qty: 90 2RF levothyroxine 50 mcg tablet 50 mcg PO DAILY 30 Days Qty: 30 0RF Referrals Follow up/Referrals: Provider,Referral, MD [Primary Care Provider] - See instructions Activity Restrictions/Add. Instructions Additional Instructions/Restrictions: At this time it was felt you are safe to be discharged home. If new or worsening symptoms please do not hesitate to return the emergency department. For pain please take 800 mg of ibuprofen and 1000 mg of Tylenol every 6 hours with a little bit of food (it is okay to take them at the same time). Please take your antibiotics as prescribed and follow-up with your family doctor on an outpatient basis for your mildly enlarged spleen to keep an eye on it as well as to ensure that your kidney infection is heading in the right direction within 1 week. Clinical Impressions Clinical Impression: Pyelonephritis Instructions Patient Instructions: DI for Urinary Tract Infection (UTI) Print Language Print Language: Turkmen Discharge ED Provider: Reyes Diaz General Adult HPI <Reyes Diaz MD - Last Filed: 11/23/24 15:25> General Chief complaint: Urogenital-Female Stated complaint: abd pain lower pack pain Time Seen by Provider: 11/23/24 13:27 History of Present Illness HPI narrative: Please note that above description of symptoms, in this electronic medical record under categorization of recalled from ER triage doctor by RN are reflective of an initial nursing assessment, however, is not reflective of my full history and physical exam that was personally taken and clarified. Consequentially, this preceding description of symptoms, which may include the patient's categorized chief complaint in the EMR, do not reflect my personal clinical impression, and the ultimate description of history of present illness and patient stated complaints should be deferred to this section of the note. Unless stated otherwise or congruent with this section of the note, additional signs, symptoms, or incongruence should be interpreted as inaccurate with my clinical impression. Related Data Previous Rx's ?Medication ?Instructions ?Recorded fluoxetine 40 mg capsule (Prozac) 40 mg PO DAILY Mood #90 caps 12/21/23 levothyroxine 50 mcg tablet 50 mcg PO DAILY 30 days #30 tabs 10/07/24 cefdinir 300 mg capsule 300 mg PO BID 10 days #20 caps 11/23/24 Allergies Allergy/AdvReac Type Severity Reaction Status Date / Time COVID-19 vaccine, Allergy Severe Anaphylaxis Verified 11/23/24 14:04 recombinant (Nova prochlorperazine (From Allergy Severe Other Verified 11/23/24 14:04 Compazine) influenza A (H5N1) virus AdvReac Severe Other Verified 11/23/24 14:04 vaccine mo ondansetron (From Zofran) AdvReac Nausea Verified 11/23/24 14:04 <Alile Damian APRN - Last Filed: > General Mode of Arrival: Wheelchair Source of Information: Patient Limitations: No Limitations Description of Symptoms (Recalled from ER Triage Doc. by RN): back pain,urinary issues PFSH <Reyes Diaz MD - Last Filed: 11/23/24 15:25> PFSH Medical History Encounter for IUD insertion Kyleena IUD inserted 05/08/24 Acute blood loss anemia ADHD Hypothyroidism Asthma Nelida's disease Anxiety Depression Allergies Surgical History S/P wisdom tooth extraction Family History Family/Other Cancer cervical-paternal side Mother Epilepsy Other Diabetes Social History Smoking Status: Former smoker alcohol intake: never substance use type: denies use current occupational status: unemployed Travel in the last 8 weeks: Inside the [place] Have you lived/traveled outside [place] in past 30 days?: No Contact w/someone who lives/traveled outside US past 30 days?: No Exposure to someone with infectious disease in past 14 days?: No Do you have a fever (greater than 100.4 F or 38 C)?: No Have you tested positive for COVID-19: No Exposed to someone with COVID-19 in past 14 days?: No Do you have a sore throat?: No Do you have a cough?: No Do you have any weakness?: No Do you have any diarrhea?: No Are you experiencing any unusual bleeding?: No Do you have any muscle aches/pain?: Yes Do you have any abdominal pain?: Yes Are you experiencing loss of taste or smell?: No <Allie Damian APRN - Last Filed: > [facility] Disclaimer: The information contained in this section may have been updated after the patient was seen, as this information can be updated by other users. Other Medical History Have you received the Flu Vaccine for this season: No Have you received the Pneumonia Vaccine: No <Reyes Diaz MD - Last Filed: 11/23/24 15:25> ROS Obtained: Yes All systems reviewed & no additional complaints except as documented Physical Exam <Reyes Diaz MD - Last Filed: 11/23/24 15:25> General General appearance: alert Head Head exam: atraumatic and normocephalic Eye Eye exam: Present normal appearance, PERRL and EOMI Neck Neck exam: Present normal inspection, full ROM and trachea midline Respiratory Respiratory exam: Absent respiratory distress, wheezes, stridor, accessory muscle use or prolonged expiratory phase Cardiovascular Cardiovascular exam: Present other (Pulses equal symmetric in upper and lower extremities) Abdominal Exam Abdominal exam: Present soft; Absent distention, tenderness or pulsatile mass Extremities Exam Extremities exam: Absent edema Back Exam Back exam: Present CVA tenderness (L); Absent CVA tenderness (R) Neurological Exam Neurological exam: Present alert, oriented X3 and CN II-XII intact; Absent motor sensory deficit Skin Skin exam: Present warm and dry; Absent diaphoresis or erythema Medical Decision Making <Reyes Diaz MD - Last Filed: 11/23/24 15:25> Medical Records Medical records reviewed: Yes I reviewed the patient's medical records. Andrés Inquiry Pt receiving controlled substance: No Andrés was queried for this patient: No Vital Signs: 11/23/24 13:17 11/23/24 13:25 11/23/24 13:30 Temperature 98.1 F Temperature Source Oral Pulse Rate 112 H 107 H Pulse Rate [Right] 105 H Respiratory Rate 20 Blood Pressure 128/87 123/81 Blood Pressure [Right Arm] 128/87 Blood Pressure Mean [Right Arm] 100 02 Sat by Pulse Oximetry 98 96 97 Oxygen Delivery Method Room Air Room Air Room Air 11/23/24 14:00 11/23/24 14:30 11/23/24 15:00 Temperature Temperature Source Pulse Rate 101 H 90 87 Pulse Rate [Right] Respiratory Rate Blood Pressure 121/75 118/71 107/63 L Blood Pressure [Right Arm] Blood Pressure Mean [Right Arm] 02 Sat by Pulse Oximetry 99 98 95 Oxygen Delivery Method Room Air Room Air Room Air 11/23/24 16:00 11/23/24 16:30 Temperature Temperature Source Pulse Rate 86 95 H Pulse Rate [Right] Respiratory Rate Blood Pressure 113/72 107/74 L Blood Pressure [Right Arm] Blood Pressure Mean [Right Arm] 02 Sat by Pulse Oximetry 96 97 Oxygen Delivery Method Room Air Room Air Lab Data Lab Results 11/23/24 13:19: Urine Color Yellow, Urine Appearance Clear, Urine pH 6.0, Ur Specific Wilson 1.015, Urine Protein 1+ A, Urine Glucose (UA) Negative, Urine Ketones Negative, Urine Blood 1+ A, Urine Nitrate Positive A, Urine Bilirubin Negative, Urine Urobilinogen 0.2, Ur Leukocyte Esterase 1+ A, Urine RBC Occasional, Urine WBC 10-20, Ur Squamous Epith Cells Occasional, Urine Bacteria 1+ 11/23/24 13:34: WBC 7.1, RBC 4.94, Hgb 12.8, Hct 39.4, MCV 79.8 L, MCH 25.9 L, MCHC 32.5, RDW 14.6, Plt Count 221, MPV 9.3, Neut % (Auto) 75.6, Lymph % (Auto) 15.0, [place] % (Auto) 7.1, Eos % (Auto) 1.8, Baso % (Auto) 0.1, Neut # (Auto) 5.4, Lymph # (Auto) 1.1, [place] # (Auto) 0.5, Eos # (Auto) 0.1, Baso # (Auto) 0.0, Sodium 136, Potassium 4.1, Chloride 102, Carbon Dioxide 25, Anion Gap 13.1, BUN 18 H, Creatinine 0.80, Estimated Creat Clear 162, Estimated GFR 87, Est GFR ( Amer) 106, Glucose 95, Calcium 9.4, Total Bilirubin 0.7, AST 23, ALT 14, Alkaline Phosphatase 148 H, Total Protein 7.8, Albumin 5.0, Globulin 2.8, Albumin/Globulin Ratio 1.8, HCG, Quant < 2, HCV Ab GEOVANNA w/Rflx PCR Qn Negative, HIV Ag/Ab Combo Qual Negative 11/23/24 13:34 11/23/24 13:34 Orders (Tests/Meds): ED MEDICATIONS Discontinued Medications Generic Name Dose Route Start Last Admin Trade Name Bernardo PRN Reason Stop Dose Admin Acetaminophen 1,000 mg 11/23/24 16:38 11/23/24 16:43 Acetaminophen 1,000mg/100ml Vial IV 11/23/24 16:39 1,000 mg ONCE ONE Administration Cefdinir 300 mg 11/23/24 15:24 11/23/24 15:38 Cefdinir 300mg Capsule PO 11/23/24 15:25 300 mg ONCE ONE Administration Iopamidol 75 ml 11/23/24 15:34 11/23/24 15:35 Iopamidol-370 (76%);100ml Bottle IV 11/23/24 15:35 75 ml ONCE ONE Administration Ketorolac Tromethamine 15 mg 11/23/24 15:24 11/23/24 15:39 Ketorolac 30mg/Ml Vial IV 11/23/24 15:25 15 mg ONCE ONE Administration Morphine Sulfate 4 mg 11/23/24 13:38 11/23/24 13:57 Morphine 4mg/Ml Syringe IV 11/23/24 13:39 4 mg ONCE ONE Administration Ondansetron HCl 4 mg 11/23/24 13:38 11/23/24 13:57 Ondansetron 4mg/2ml Vial IV 11/23/24 13:39 4 mg ONCE ONE Administration Sodium Chloride 10 ml 11/23/24 15:34 11/23/24 15:35 Sodium Chloride 0.9% 10ml Syr (Rad Only) IV 11/23/24 15:35 10 ml ONCE ONE Administration ORDERS Category Date Time Status CT abdomen pelvis w con Stat Cat Scan 11/23/24 15:14 Completed CBC w/Auto Diff [Complete Blood Count Auto Diff] Stat Lab 11/23/24 13:34 Completed CMP [Comprehensive Metabolic Panel] Stat Lab 11/23/24 13:34 Completed HCG,Quantitative Stat Lab 11/23/24 13:34 Completed HIV Combo Stat Lab 11/23/24 13:34 Completed Hepatitis C Ab Qual. W/ RFX Stat Lab 11/23/24 13:34 Completed UA [Urinalysis and Microscopic] Stat Lab 11/23/24 13:19 Completed Urine Culture Stat Micro 11/23/24 13:19 Received Medical Decision Narrative: Otherwise healthy 24-year-old female presenting with left flank pain. Started yesterday, 11/22 around 4 PM. States that she was not doing anything in particular. Started her left flank, has now migrated to her lower left abdomen. No dysuria or hematuria. No fevers or chills, nausea, vomiting, diarrhea, constipation. States that she has an IUD in, does not know if she may be or not, but there is a chance. It is currently moderate in intensity, feels too deep to palpate and nothing in particular makes it better. History was obtained via conversation with patient. On arrival, patient hemodynamically stable, alert, [oriented x4, ][appropriate, ]GCS [15], moving all extremities spontaneously, pupils equal and reactive to light. Full physical exam performed and significant for very well-appearing patient and she is in no acute distress. Percussion of left flank produces tears, patient obviously in mild to moderate pain with this. Abdomen soft, nontender. No overlying skin changes. Differential includes nephrolithiasis, UTI, pyelonephritis, ectopic , intrauterine , uterine perforation, muscle strain, among others. Patient placed on continuous cardiac monitoring and continuous pulse ox with initial blood pressure 128/87, heart rate 105, saturation 98%. Patient was given morphine and Zofran initially for symptomatic management[ and correction of underlying abnormalities]. To be provided other meds once results. Workup independently interpreted and significant for nonactionable CBC. Chemistry normal. hCG negative and nonactionable. Patient's urinalysis with concern for UTI with blood and nitrates. Given Toradol and cefdinir. CT scan was ordered, prior to this, care handed off to oncoming physician. Machine Shorthand Teacher disclaimer Much of this encounter note is an electronic web production artist spoken language to printed text. Electronic web production artist of the spoken language may permit errors. Although I have reviewed the note, some errors may still exist. <Ron Hillman MD - Last Filed: 11/23/24 16:55> Vital Signs: 11/23/24 13:17 11/23/24 13:25 11/23/24 13:30 Temperature 98.1 F Temperature Source Oral Pulse Rate 112 H 107 H Pulse Rate [Right] 105 H Respiratory Rate 20 Blood Pressure 128/87 123/81 Blood Pressure [Right Arm] 128/87 Blood Pressure Mean [Right Arm] 100 02 Sat by Pulse Oximetry 98 96 97 Oxygen Delivery Method Room Air Room Air Room Air 11/23/24 14:00 11/23/24 14:30 11/23/24 15:00 Temperature Temperature Source Pulse Rate 101 H 90 87 Pulse Rate [Right] Respiratory Rate Blood Pressure 121/75 118/71 107/63 L Blood Pressure [Right Arm] Blood Pressure Mean [Right Arm] 02 Sat by Pulse Oximetry 99 98 95 Oxygen Delivery Method Room Air Room Air Room Air 11/23/24 16:00 11/23/24 16:30 Temperature Temperature Source Pulse Rate 86 95 H Pulse Rate [Right] Respiratory Rate Blood Pressure 113/72 107/74 L Blood Pressure [Right Arm] Blood Pressure Mean [Right Arm] 02 Sat by Pulse Oximetry 96 97 Oxygen Delivery Method Room Air Room Air Lab Data Lab Results 11/23/24 13:19: Urine Color Yellow, Urine Appearance Clear, Urine pH 6.0, Ur Specific Wilson 1.015, Urine Protein 1+ A, Urine Glucose (UA) Negative, Urine Ketones Negative, Urine Blood 1+ A, Urine Nitrate Positive A, Urine Bilirubin Negative, Urine Urobilinogen 0.2, Ur Leukocyte Esterase 1+ A, Urine RBC Occasional, Urine WBC 10-20, Ur Squamous Epith Cells Occasional, Urine Bacteria 1+ 11/23/24 13:34: WBC 7.1, RBC 4.94, Hgb 12.8, Hct 39.4, MCV 79.8 L, MCH 25.9 L, MCHC 32.5, RDW 14.6, Plt Count 221, MPV 9.3, Neut % (Auto) 75.6, Lymph % (Auto) 15.0, [place] % (Auto) 7.1, Eos % (Auto) 1.8, Baso % (Auto) 0.1, Neut # (Auto) 5.4, Lymph # (Auto) 1.1, [place] # (Auto) 0.5, Eos # (Auto) 0.1, Baso # (Auto) 0.0, Sodium 136, Potassium 4.1, Chloride 102, Carbon Dioxide 25, Anion Gap 13.1, BUN 18 H, Creatinine 0.80, Estimated Creat Clear 162, Estimated GFR 87, Est GFR ( Amer) 106, Glucose 95, Calcium 9.4, Total Bilirubin 0.7, AST 23, ALT 14, Alkaline Phosphatase 148 H, Total Protein 7.8, Albumin 5.0, Globulin 2.8, Albumin/Globulin Ratio 1.8, HCG, Quant < 2, HCV Ab GEOVANNA w/Rflx PCR Qn Negative, HIV Ag/Ab Combo Qual Negative Orders (Tests/Meds): ED MEDICATIONS Discontinued Medications Generic Name Dose Route Start Last Admin Trade Name Freq PRN Reason Stop Dose Admin Acetaminophen 1,000 mg 11/23/24 16:38 11/23/24 16:43 Acetaminophen 1,000mg/100ml Vial IV 11/23/24 16:39 1,000 mg ONCE ONE Administration Cefdinir 300 mg 11/23/24 15:24 11/23/24 15:38 Cefdinir 300mg Capsule PO 11/23/24 15:25 300 mg ONCE ONE Administration Iopamidol 75 ml 11/23/24 15:34 11/23/24 15:35 Iopamidol-370 (76%);100ml Bottle IV 11/23/24 15:35 75 ml ONCE ONE Administration Ketorolac Tromethamine 15 mg 11/23/24 15:24 11/23/24 15:39 Ketorolac 30mg/Ml Vial IV 11/23/24 15:25 15 mg ONCE ONE Administration Morphine Sulfate 4 mg 11/23/24 13:38 11/23/24 13:57 Morphine 4mg/Ml Syringe IV 11/23/24 13:39 4 mg ONCE ONE Administration Ondansetron HCl 4 mg 11/23/24 13:38 11/23/24 13:57 Ondansetron 4mg/2ml Vial IV 11/23/24 13:39 4 mg ONCE ONE Administration Sodium Chloride 10 ml 11/23/24 15:34 11/23/24 15:35 Sodium Chloride 0.9% 10ml Syr (Rad Only) IV 11/23/24 15:35 10 ml ONCE ONE Administration ORDERS Category Date Time Status CT abdomen pelvis w con Stat Cat Scan 11/23/24 15:14 Completed CBC w/Auto Diff [Complete Blood Count Auto Diff] Stat Lab 11/23/24 13:34 Completed CMP [Comprehensive Metabolic Panel] Stat Lab 11/23/24 13:34 Completed HCG,Quantitative Stat Lab 11/23/24 13:34 Completed HIV Combo Stat Lab 11/23/24 13:34 Completed Hepatitis C Ab Qual. W/ RFX Stat Lab 11/23/24 13:34 Completed UA [Urinalysis and Microscopic] Stat Lab 11/23/24 13:19 Completed Urine Culture Stat Micro 11/23/24 13:19 Received Medical Decision Narrative: Otherwise healthy 24-year-old female presenting with left flank pain. Started yesterday, 11/22 around 4 PM. States that she was not doing anything in particular. Started her left flank, has now migrated to her lower left abdomen. No dysuria or hematuria. No fevers or chills, nausea, vomiting, diarrhea, constipation. States that she has an IUD in, does not know if she may be or not, but there is a chance. It is currently moderate in intensity, feels too deep to palpate and nothing in particular makes it better. History was obtained via conversation with patient. On arrival, patient hemodynamically stable, alert, [oriented x4, ][appropriate, ]GCS [15], moving all extremities spontaneously, pupils equal and reactive to light. Full physical exam performed and significant for very well-appearing patient and she is in no acute distress. Percussion of left flank produces tears, patient obviously in mild to moderate pain with this. Abdomen soft, nontender. No overlying skin changes. Differential includes nephrolithiasis, UTI, pyelonephritis, ectopic , intrauterine , uterine perforation, muscle strain, among others. Patient placed on continuous cardiac monitoring and continuous pulse ox with initial blood pressure 128/87, heart rate 105, saturation 98%. Patient was given morphine and Zofran initially for symptomatic management[ and correction of underlying abnormalities]. To be provided other meds once results. Workup independently interpreted and significant for nonactionable CBC. Chemistry normal. hCG negative and nonactionable. Patient's urinalysis with concern for UTI with blood and nitrates. Given Toradol and cefdinir. CT scan was ordered, prior to this, care handed off to oncoming physician. Machine Shorthand Teacher disclaimer Much of this encounter note is an electronic web production artist spoken language to printed text. Electronic web production artist of the spoken language may permit errors. Although I have reviewed the note, some errors may still exist. Ron Hillman: Upon assumption of care patient was hemodynamically stable. Workup reviewed by me, no significant leukocytosis no DUNCAN or critical electrolyte abnormality. Urinalysis is consistent with infection with proteinuria for which cefdinir was administered prior to assumption of care. I had an interactive discussion with radiology, patient has hypoattenuation of the left kidney concerning for pyelonephritis. In this clinical setting it aligns. Patient does not meet sepsis criteria and has been covered with appropriate antibiotics and is appropriate for outpatient management at this time was given multiple return precautions and verbalized understanding we discharged with a course of cefdinir. <Allie Damian, DIGITAL MARKETING PROJECT MANAGER - Last Filed: > Medical Records Screening: Per USPSTF and CDC recommendations, given the prevalence of disease in our region, it is our hospital?s policy to screen for HIV and viral Hepatitis for all patients aged 18 and over and those with ongoing risk factors. Vital Signs: 11/23/24 13:17 11/23/24 13:25 11/23/24 13:30 Temperature 98.1 F Temperature Source Oral Pulse Rate 112 H 107 H Pulse Rate [Right] 105 H Respiratory Rate 20 Blood Pressure 128/87 123/81 Blood Pressure [Right Arm] 128/87 Blood Pressure Mean [Right Arm] 100 02 Sat by Pulse Oximetry 98 96 97 Oxygen Delivery Method Room Air Room Air Room Air 11/23/24 14:00 11/23/24 14:30 11/23/24 15:00 Temperature Temperature Source Pulse Rate 101 H 90 87 Pulse Rate [Right] Respiratory Rate Blood Pressure 121/75 118/71 107/63 L Blood Pressure [Right Arm] Blood Pressure Mean [Right Arm] 02 Sat by Pulse Oximetry 99 98 95 Oxygen Delivery Method Room Air Room Air Room Air 11/23/24 16:00 11/23/24 16:30 Temperature Temperature Source Pulse Rate 86 95 H Pulse Rate [Right] Respiratory Rate Blood Pressure 113/72 107/74 L Blood Pressure [Right Arm] Blood Pressure Mean [Right Arm] 02 Sat by Pulse Oximetry 96 97 Oxygen Delivery Method Room Air Room Air Lab Data Lab Results 11/23/24 13:19: Urine Color Yellow, Urine Appearance Clear, Urine pH 6.0, Ur Specific Wilson 1.015, Urine Protein 1+ A, Urine Glucose (UA) Negative, Urine Ketones Negative, Urine Blood 1+ A, Urine Nitrate Positive A, Urine Bilirubin Negative, Urine Urobilinogen 0.2, Ur Leukocyte Esterase 1+ A, Urine RBC Occasional, Urine WBC 10-20, Ur Squamous Epith Cells Occasional, Urine Bacteria 1+ 11/23/24 13:34: WBC 7.1, RBC 4.94, Hgb 12.8, Hct 39.4, MCV 79.8 L, MCH 25.9 L, MCHC 32.5, RDW 14.6, Plt Count 221, MPV 9.3, Neut % (Auto) 75.6, Lymph % (Auto) 15.0, [place] % (Auto) 7.1, Eos % (Auto) 1.8, Baso % (Auto) 0.1, Neut # (Auto) 5.4, Lymph # (Auto) 1.1, [place] # (Auto) 0.5, Eos # (Auto) 0.1, Baso # (Auto) 0.0, Sodium 136, Potassium 4.1, Chloride 102, Carbon Dioxide 25, Anion Gap 13.1, BUN 18 H, Creatinine 0.80, Estimated Creat Clear 162, Estimated GFR 87, Est GFR ( Amer) 106, Glucose 95, Calcium 9.4, Total Bilirubin 0.7, AST 23, ALT 14, Alkaline Phosphatase 148 H, Total Protein 7.8, Albumin 5.0, Globulin 2.8, Albumin/Globulin Ratio 1.8, HCG, Quant < 2, HCV Ab GEOVANNA w/Rflx PCR Qn Negative, HIV Ag/Ab Combo Qual Negative Orders (Tests/Meds): ED MEDICATIONS Discontinued Medications Generic Name Dose Route Start Last Admin Trade Name Kwadwoq PRN Reason Stop Dose Admin Acetaminophen 1,000 mg 11/23/24 16:38 11/23/24 16:43 Acetaminophen 1,000mg/100ml Vial IV 11/23/24 16:39 1,000 mg ONCE ONE Administration Cefdinir 300 mg 11/23/24 15:24 11/23/24 15:38 Cefdinir 300mg Capsule PO 11/23/24 15:25 300 mg ONCE ONE Administration Iopamidol 75 ml 11/23/24 15:34 11/23/24 15:35 Iopamidol-370 (76%);100ml Bottle IV 11/23/24 15:35 75 ml ONCE ONE Administration Ketorolac Tromethamine 15 mg 11/23/24 15:24 11/23/24 15:39 Ketorolac 30mg/Ml Vial IV 11/23/24 15:25 15 mg ONCE ONE Administration Morphine Sulfate 4 mg 11/23/24 13:38 11/23/24 13:57 Morphine 4mg/Ml Syringe IV 11/23/24 13:39 4 mg ONCE ONE Administration Ondansetron HCl 4 mg 11/23/24 13:38 11/23/24 13:57 Ondansetron 4mg/2ml Vial IV 11/23/24 13:39 4 mg ONCE ONE Administration Sodium Chloride 10 ml 11/23/24 15:34 11/23/24 15:35 Sodium Chloride 0.9% 10ml Syr (Rad Only) IV 11/23/24 15:35 10 ml ONCE ONE Administration ORDERS Category Date Time Status CT abdomen pelvis w con Stat Cat Scan 11/23/24 15:14 Completed CBC w/Auto Diff [Complete Blood Count Auto Diff] Stat Lab 11/23/24 13:34 Completed CMP [Comprehensive Metabolic Panel] Stat Lab 11/23/24 13:34 Completed HCG,Quantitative Stat Lab 11/23/24 13:34 Completed HIV Combo Stat Lab 11/23/24 13:34 Completed Hepatitis C Ab Qual. W/ RFX Stat Lab 11/23/24 13:34 Completed UA [Urinalysis and Microscopic] Stat Lab 11/23/24 13:19 Completed Urine Culture Stat Micro 11/23/24 13:19 Received Critical Care <Reyes Diaz MD - Last Filed: 11/23/24 15:25> Critical Care Time Critical Care Time: No
[2024-11-23 15:03] LABS: Alanine Aminotransferase 14 U/L (12-78); Albumin/Globulin Ratio 1.8 (1.1-1.8); Alkaline Phosphatase 148 U/L (38-126); Anion Gap 13.1 mEq/L (5-15); Aspartate Amino Transferase 23 U/L (14-36); Bilirubin,Total 0.7 mg/dl (0.2-1.3); Blood Urea Nitrogen 18 mg/dl (7-17); Calcium 9.4 mg/dl (8.4-10.2); Carbon Dioxide 25 mmol/L (22.0-30.0); Chloride 102 mmol/L (98-107); Creatinine Clearance Estimated 162 mL/min (50-200); Estimated Glomerular Filt Rate 87 ml/min (>60); GFR (African American) 106 ML/MIN (>60); Globulin 2.8 g/dL (1.3-3.2); Glucose 95 mg/dl (74-100); Potassium 4.1 mmoL/L (3.5-5.1); Sodium 136 mmol/L (136-145); Total Protein,Serum 7.8 g/dl (6.3-8.2)
[2024-11-23 15:07] LABS: Appearance,Urine CLEAR (Clear); Bilirubin,Urine Negative (Negative); Blood, Urine 1+ (Negative); Color,Urine YELLOW (Yellow); Glucose,Urine (UA) Negative (Negative); Ketones,Urine Negative (Negative); Leukocyte Esterase,Urine 1+ (Negative); Nitrate,Urine POSITIVE (Negative); Protein,Urine 1+ (Negative); Specific Gravity, Urine 1.015 (1.005-1.030); Urobilinogen,Urine 0.2 EU/dl (0.2)
--- NOTE | 2024-11-23 15:14 | CT_ITS ---
PROCEDURE INFORMATION: Exam: CT Abdomen And Pelvis With Contrast Exam date and time: 11/23/2024 3:31 PM Age: 24 years old Clinical indication: Abdominal pain; Flank; Left; Additional info: L flank pain TECHNIQUE: Imaging protocol: Computed tomography of the abdomen and pelvis with contrast. Radiation optimization: All CT scans at this facility use at least one of these dose optimization techniques: automated exposure control; mA and/or kV adjustment per patient size (includes targeted exams where dose is matched to clinical indication); or iterative reconstruction. Contrast material: ISOVUE; Contrast volume: 75 ml; Contrast route: IV; COMPARISON: CR XR CHEST PORTABLE 10/30/2024 5:52 AM FINDINGS: Liver: Normal. No mass. Gallbladder and biliary ducts: Normal. No calcified stones. No ductal dilation. Pancreas: Normal. No ductal dilation. Spleen: Borderline splenomegaly 13.9 cm.. Adrenal glands: Normal. No mass. Kidneys and ureters: There is no evidence of renal or ureteral calcifications. Patchy hypoattenuation in the left kidney (series 3, image 44. ) This may represent pyelonephritis in the appropriate clinical setting. Stomach and bowel: Unremarkable. No obstruction. No mucosal thickening. Appendix: Normal appendix Intraperitoneal space: Unremarkable. No free air. No significant fluid collection. Vasculature: Unremarkable. No abdominal aortic aneurysm. Lymph nodes: Unremarkable. No enlarged lymph nodes. Urinary bladder: Unremarkable as visualized. Reproductive: IUD well positioned in the uterus Bones/joints: Unremarkable. No acute fracture. Soft tissues: Unremarkable. IMPRESSION: 1. Patchy hypoattenuation in the left kidney (series 3, image 44. ) This may represent pyelonephritis in the appropriate clinical setting. 2. Borderline splenomegaly 13.9 cm.. Differential diagnosis of splenomegaly is lymphoma/leukemia, mononucleosis, hemolytic anemia, portal hypertension.
[2024-11-23 15:16] LABS: Bacteria,Urine 1+ /lpf; RBC,Urine Occasional #/hpf (0-3); Squamous Epithelial Cell,Urine Occasional #/hpf (0-5)
[2024-11-23 15:20] LABS: HCG,Quantitative < 2 mIU/ml (0-5.42)
--- NOTE | 2024-11-23 15:34 | PC.NURSE ---
pt is at ct scanner
[2024-11-23] MEDS: IOPAMIDOL-370 (76%);100ML BOTTLE 75 ML IV (15:35)
[2024-11-23] MEDS: SODIUM CHLORIDE 0.9% 10ML SYR (RAD ONLY) 10 ML IV (15:35)
[2024-11-23] MEDS: CEFDINIR 300MG CAPSULE 300 MG PO (15:38)
[2024-11-23] MEDS: KETOROLAC 30MG/ML VIAL 15 MG IV (15:39)
[2024-11-23 15:43] LABS: HIV Combo NEGATIVE (Negative)
[2024-11-23 15:50] LABS: Hepatitis C Ab Qual. W/ RFX NEGATIVE (Negative)
--- NOTE | 2024-11-23 16:35 | PC.NURSE ---
aware of pt having no relief in pain, new meds ordered via mar
--- NOTE | 2024-11-23 16:37 | PC.NURSE ---
ROUNDED ON PT SHE STATES THE MEDICINE SHE WAS GIVEN WASN'T HELPING WITH ANYTHING, I RELAYED THE INFORMATION TO THE NURSES AND MD JONES AT THIS TIME
[2024-11-23] MEDS: ACETAMINOPHEN 1,000MG/100ML VIAL 1000 MG IV (16:43)
--- NOTE | 2024-11-23 16:43 | PC.NURSE ---
USMAN Talking to Dr. Hillman
--- NOTE | 2024-11-24 09:38 | PC.NURSE ---
urine culture disccused with , pt on appropriate antibiotic, no new orders
--- NOTE | 2024-11-26 16:00 | PC.NURSE ---
ua discussed with dr interiano, no new orders
== END 2024-11-23 17:18 | disposition home or self-care (01) ==
PROVIDERS: Emergency Provider Emergency Medicine
DX: N12 Tubulo-interstitial nephritis, not specified as acute or chronic (principal); M54.50 Low back pain, unspecified; R10.9 Unspecified abdominal pain
CPT/HCPCS: 74177; 80053; 81001; 84702; 85025; 86803; 87086; 87088; 87186; 87389; 96374; 96375; 99285; J0131; J1885; J2270; J2405; Q9967

== ENCOUNTER 2025-01-24 12:33 | Emergency (ER) | payer OTHER, SELFPAY ==
[2025-01-24 13:26] VITALS: BP 148/84; PULSE 91; RESP 18; TEMP 36.2; O2SAT 98; BMI 36.0
[2025-01-24 13:30] LABS: Microscopic, Urine URINE MICROSCOPIC (MICROSCOPIC)
[2025-01-24 13:31] LABS: Appearance,Urine CLEAR (Clear); Blood, Urine Negative (Negative); Color,Urine YELLOW (Yellow); Glucose,Urine (UA) Negative (Negative); Ketones,Urine TRACE (Negative); Leukocyte Esterase,Urine Negative (Negative); Nitrate,Urine Negative (Negative); Protein,Urine 1+ (Negative); Specific Gravity, Urine >= 1.030 (1.005-1.030); Urobilinogen,Urine 0.2 EU/dl (0.2)
[2025-01-24 13:33] LABS: Urine Pregnancy, HCG Qual. Negative (Negative)
[2025-01-24 13:34] LABS: Bilirubin,Urine 1+ (Negative)
[2025-01-24 13:51] LABS: Bacteria,Urine Trace /lpf
--- NOTE | 2025-01-24 14:22 | US_ITS ---
FINAL REPORT TECHNIQUE: Multiple transverse and longitudinal images CLINICAL HISTORY: RUQ abd pain/nausea COMPARISON: None FINDINGS: The gallbladder shows no wall thickening, distention or stone disease. No biliary ductal dilatation is appreciated. No fluid collections are seen. Limited portions of the right liver are unremarkable. Limited portions of the right kidney are unremarkable. IMPRESSION: 1. No evidence of cholelithiasis 2. No evidence of biliary obstruction Reviewed, Interpreted and Dictated by Naga Grace MD Transcribed by Diane Hardin Authenticated and . [facility]
[2025-01-24] MEDS: ONDANSETRON 4MG/2ML VIAL 4 MG IV (14:38)
[2025-01-24] MEDS: LACTATED RINGERS 1000ML 1,000 ML 999 ML IV (14:38)
[2025-01-24] MEDS: ACETAMINOPHEN 1,000MG/100ML VIAL 1000 MG IV (14:38)
[2025-01-24] MEDS: KETOROLAC 30MG/ML VIAL 15 MG IV (14:38)
[2025-01-24 14:44] LABS: Basophils % 0.5 % (0.1-2.0); Eosinophils # 0.1 K/mm3 (0.0-0.4); Eosinophils % 3.2 % (0.1-12.0); Hematocrit 38.4 % (37.0-47.0); Hemoglobin 12.2 g/dL (12.2-16.2); Lymphocytes % 25.6 % (10-50); Mean Corpuscular HGB Conc 31.8 g/dL (31.8-35.4); Mean Corpuscular Hemoglobin 26.2 pg (27.0-31.2); Mean Corpuscular Volume 82.6 fl (81-99); Mean Platelet Volume 9.1 fl (7.4-10.4); Monocytes # 0.2 K/mm3 (0.1-1.0); Monocytes % 5.9 % (1.7-9.3); Neutrophils # 2.4 K/mm3 (1.8-7.8); Neutrophils % 64.5 % (37.0-80.0); Platelet Count 167 K/mm3 (142-424); Red Blood Count 4.65 M/mm3 (4.20-5.40); Red Cell Distribution Width 13.9 % (11.5-17.5); White Blood Count 3.7 K/mm3 (4.8-10.8)
[2025-01-24 14:50] LABS: Albumin Level 4.5 g/dl (3.5-5.0); Chloride 106 mmol/L (98-107); Potassium 3.8 mmoL/L (3.5-5.1); Sodium 139 mmol/L (136-145)
[2025-01-24 14:52] LABS: Alanine Aminotransferase 11 U/L (12-78); Anion Gap 12.8 mEq/L (5-15); Aspartate Amino Transferase 24 U/L (14-36); Blood Urea Nitrogen 18 mg/dl (7-17); Carbon Dioxide 24 mmol/L (22.0-30.0); Creatinine Clearance Estimated 185 mL/min (50-200); Estimated Glomerular Filt Rate 102 ml/min (>60); GFR (African American) 123 ML/MIN (>60)
[2025-01-24 14:53] LABS: Albumin/Globulin Ratio 1.6 (1.1-1.8); Alkaline Phosphatase 104 U/L (38-126); Bilirubin,Total 0.8 mg/dl (0.2-1.3); Calcium 9.6 mg/dl (8.4-10.2); Globulin 2.8 g/dL (1.3-3.2); Glucose 103 mg/dl (74-100); Lipase 72 U/L (23-300); Total Protein,Serum 7.3 g/dl (6.3-8.2)
--- NOTE | 2025-01-24 14:58 | ED_ITS ---
Discharge Plan Disposition Patient Disposition: Home, Self-Care Chief Complaint: Back Pain/Injury Prescriptions Prescriptions: New pantoprazole 40 mg tablet,delayed release (DR/EC) 40 mg PO DAILY Qty: 30 1RF ondansetron 4 mg tablet,disintegrating 4 mg PO Q8H PRN (Reason: nausea and vomiting) 4 Days Qty: 12 0RF No Action levothyroxine 50 mcg tablet 50 mcg PO DAILY 30 Days Qty: 30 0RF Referrals Follow up/Referrals: Sanford Miller MD [Primary Care Provider] - See instructions Activity Restrictions/Add. Instructions Additional Instructions/Restrictions: You were evaluated in the emergency department today. At this time, your labs and ultrasound are reassuring. I feel you likely have gastroenteritis or gastritis as a cause of your symptoms, which could be viral or infectious or could be related to excess stomach acid. 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 Follow-up closely with your primary care provider over the next 3 to 4 days. Return to the emergency department right away for new or worsening symptoms. Clinical Impressions Clinical Impression: Abdominal pain, RUQ, Nausea, Diarrhea Instructions Patient Instructions: DI for Abdominal Pain-Adult, DI for Diarrhea and Traveler's Diarrhea -- Adult, DI for Nausea -- Adult Print Language Print Language: British Discharge ED Provider: Kenyatta Mckeon General Adult HPI <Kenyatta Mckeon DO - Last Filed: 01/24/25 15:03> General Chief complaint: Back Pain/Injury Stated complaint: poss. kidney infection nauea lower back pain ba Time Seen by Provider: 01/24/25 13:40 Mode of Arrival: Ambulatory Source of Information: Patient Description of Symptoms (Recalled from ER Triage Doc. by RN): PT C/O LOWER BACK PAIN AND LOWER ABDOMINAL PAIN. PT REPORTS SHE HAS HAD NAUSEA AND DIARRHEA OVER THE PAST COUPLE OF DAYS. PT HAS HX OF UTI'S. PT STATES SHE GOT HER IUD TAKEN OUT 2 WEEKS AGO. History of Present Illness HPI narrative: This patient is a 24-year-old female with a history of obesity and Nelida's presenting to the emergency department for evaluation with concern for right upper quadrant abdominal pain that started yesterday. It radiates across her epigastrium and bilateral flanks. She also notes she has had nausea that is been severe as well as some looser stools than normal. She notes concern that she could have a kidney infection because of the pain now radiating to her back, but she is not having any dysuria, urinary frequency, urinary urgency. She is also had no fevers or chills. She has no prior abdominal surgical history. Of note, she did have an IUD taken out 2 weeks ago. Related Data Previous Rx's ?Medication ?Instructions ?Recorded levothyroxine 50 mcg tablet 50 mcg PO DAILY 30 days #30 tabs 10/07/24 ondansetron 4 mg disintegrating 4 mg PO Q8H PRN nausea and 01/24/25 tablet vomiting 4 days #12 tabs pantoprazole 40 mg tablet,delayed 40 mg PO DAILY #30 tabs 01/24/25 release Allergies Allergy/AdvReac Type Severity Reaction Status Date / Time COVID-19 vaccine, Allergy Severe Anaphylaxis Verified 01/10/25 13:27 recombinant (Nova prochlorperazine (From Allergy Severe Other Verified 01/10/25 13:27 Compazine) influenza A (H5N1) virus AdvReac Severe Other Verified 01/10/25 13:27 vaccine mo ondansetron (From Zofran) AdvReac Nausea Verified 01/10/25 13:27 PFS <Kenyatta Mckeon DO - Last Filed: 01/24/25 15:03> [facility] Disclaimer: The information contained in this section may have been updated after the patient was seen, as this information can be updated by other users. Medical History Encounter for IUD insertion Acute blood loss anemia ADHD Hypothyroidism Asthma Nelida's disease Anxiety Depression Allergies Surgical History S/P wisdom tooth extraction Family History Family/Other Cancer Mother Epilepsy Other Diabetes Social History Smoking Status: Never smoker smoking status start date: vape alcohol intake: never substance use type: denies use current occupational status: unemployed Travel in the last 8 weeks: Inside the [place] Have you lived/traveled outside [place] in past 30 days?: No Contact w/someone who lives/traveled outside US past 30 days?: No Exposure to someone with infectious disease in past 14 days?: No Do you have a fever (greater than 100.4 F or 38 C)?: No Have you tested positive for COVID-19: No Exposed to someone with COVID-19 in past 14 days?: No Do you have a sore throat?: No Do you have a cough?: No Do you have any weakness?: No Do you have any diarrhea?: No Are you experiencing any unusual bleeding?: No Do you have any muscle aches/pain?: Yes Do you have any abdominal pain?: No Are you experiencing loss of taste or smell?: No Other Medical History Have you received the Flu Vaccine for this season: No Have you received the Pneumonia Vaccine: No <Kenyatta Mckeon DO - Last Filed: 01/24/25 15:03> ROS Obtained: Yes All systems reviewed & no additional complaints except as documented Physical Exam <Kenyatta Mckeon DO - Last Filed: 01/24/25 15:03> General General appearance: alert, in no apparent distress and obese Comment: Uncomfortable appearing Head Head exam: atraumatic and normocephalic Eye Eye exam: Present normal appearance, PERRL and EOMI ENT ENT exam: Present normal exam, normal oropharynx, mucous membranes moist and normal external ear exam Neck Neck exam: Present normal inspection, full ROM and trachea midline; Absent tenderness Chest Chest inspection: Present normal inspection and symmetric chest wall rise; Absent tenderness Respiratory Respiratory exam: Present normal lung sounds bilaterally; Absent respiratory distress, wheezes, stridor or accessory muscle use Cardiovascular Cardiovascular exam: Present regular rate and normal rhythm Abdominal Exam Abdominal exam: Present soft and tenderness (Right upper quadrant, epigastric); Absent distention, guarding or rebound Extremities Exam Extremities exam: Present normal inspection, full ROM and normal capillary refill; Absent tenderness or edema Back Exam Back exam: Present normal inspection and full ROM; Absent tenderness Neurological Exam Neurological exam: Present alert, oriented X3, CN II-XII intact and normal gait; Absent motor sensory deficit Psychiatric Psychiatric exam: Present normal affect and normal mood Skin Skin exam: Present warm and dry Medical Decision Making <Kenyatta Mckeon DO - Last Filed: 01/24/25 15:03> Medical Records Medical records reviewed: Yes I reviewed the patient's medical records. Screening: Per USPSTF and CDC recommendations, given the prevalence of disease in our region, it is our hospital?s policy to screen for HIV and viral Hepatitis for all patients aged 18 and over and those with ongoing risk factors. Andrés Inquiry Pt receiving controlled substance: No Vital Signs: 01/24/25 13:26 Temperature 97.1 F L Temperature Source Oral Pulse Rate [Right] 91 H Respiratory Rate 18 Blood Pressure [Right Arm] 148/84 H Blood Pressure Mean [Right Arm] 105 Blood Pressure Source [Right Arm] Automatic Cuff Blood Pressure Position [Right Arm] Supine 02 Sat by Pulse Oximetry 98 Oxygen Delivery Method Room Air Lab Data Lab results reviewed: Yes I reviewed the patient's lab results. Lab Results 01/24/25 13:15: Urine Color Yellow, Urine Appearance Clear, Urine pH 6.0, Ur Specific [place] >= 1.030, Urine Protein 1+ A, Urine Glucose (UA) Negative, Urine Ketones Trace, Urine Blood Negative, Urine Nitrate Negative, Urine Bilirubin 1+ A, Urine Urobilinogen 0.2, Ur Leukocyte Esterase Negative, Urine RBC None, Urine WBC 3-5, Ur Squamous Epith Cells 5-10, Urine Bacteria Trace, Urine HCG, Qual Negative 01/24/25 14:32: WBC 3.7 L, RBC 4.65, Hgb 12.2, Hct 38.4, MCV 82.6, MCH 26.2 L, MCHC 31.8, RDW 13.9, Plt Count 167, MPV 9.1, Neut % (Auto) 64.5, Lymph % (Auto) 25.6, [place] % (Auto) 5.9, Eos % (Auto) 3.2, Baso % (Auto) 0.5, Neut # (Auto) 2.4, Lymph # (Auto) 1.0, [place] # (Auto) 0.2, Eos # (Auto) 0.1, Baso # (Auto) 0.0, Sodium 139, Potassium 3.8, Chloride 106, Carbon Dioxide 24, Anion Gap 12.8, BUN 18 H, Creatinine 0.70, Estimated Creat Clear 185, Estimated GFR 102, Est GFR ( Amer) 123, Glucose 103 H, Calcium 9.6, Total Bilirubin 0.8, AST 24, ALT 11 L, Alkaline Phosphatase 104, Total Protein 7.3, Albumin 4.5, Globulin 2.8, Albumin/Globulin Ratio 1.6, Lipase 72 04/04/25 14:32 01/24/25 14:32 Orders (Tests/Meds): ED MEDICATIONS Discontinued Medications Generic Name Dose Route Start Last Admin Trade Name Bernardo PRN Reason Stop Dose Admin Acetaminophen 1,000 mg 01/24/25 14:23 01/24/25 14:38 Acetaminophen 1,000mg/100ml Vial IV 01/24/25 14:24 1,000 mg ONCE ONE Administration Belladonna Alkaloids 60 ml 01/24/25 16:26 01/24/25 16:44 Belladonna Alkaloids 60 Ml Ml PO 01/24/25 16:27 60 ml ONCE ONE Administration Dicyclomine HCl 20 mg 01/24/25 16:26 01/24/25 16:45 Dicyclomine 10mg Capsule PO 01/24/25 16:27 20 mg ONCE ONE Administration Lactated Ringer's 1,000 mls @ 999 mls/hr 01/24/25 14:22 01/24/25 14:38 Lactated Ringer's 1000 Ml Bag IV 01/24/25 15:22 999 mls/hr .Q1H1M ONE Administration Ketorolac Tromethamine 15 mg 01/24/25 14:22 01/24/25 14:38 Ketorolac 30mg/Ml Vial IV 01/24/25 14:23 15 mg ONCE ONE Administration Ondansetron HCl 4 mg 01/24/25 14:22 01/24/25 14:38 Ondansetron 4mg/2ml Vial IV 01/24/25 14:23 4 mg ONCE ONE Administration Pantoprazole Sodium 40 mg 01/24/25 16:26 01/24/25 16:44 Pantoprazole 40mg Tablet PO 01/24/25 16:27 40 mg ONCE ONE Administration ORDERS Category Date Time Status US RUQ [US abdomen limited] Stat Exams 01/24/25 14:22 Completed CBC w/Auto Diff [Complete Blood Count Auto Diff] Stat Lab 01/24/25 14:32 Completed CMP [Comprehensive Metabolic Panel] Stat Lab 01/24/25 14:32 Completed Lipase Stat Lab 01/24/25 14:32 Completed Urinalysis and Microscopic Stat Lab 01/24/25 13:15 Completed Urine , HCG Qual. Stat Lab 01/24/25 13:15 Completed Medical Decision Narrative: In summary, this patient is a 24-year-old female presenting to the Emergency Department for evaluation of right upper quadrant abdominal pain radiating to both flanks and epigastrium as well as nausea and diarrhea. Differential diagnoses considered include but are not limited to cholecystitis, choledocholithiasis, pancreatitis, gastroenteritis, colitis, cystitis, pyelonephritis. Ruling out the most morbid conditions drove assessment. It should be noted patient's history includes obesity and hypothyroidism which may or may not be at goal therapy. This complicates all aspects of care by increasing patient's risk for morbidity. I reviewed patient's past medical records and noted UTI back in November. On exam, the patient has right upper quadrant tenderness but no rebound or guarding. She is nontoxic-appearing but is uncomfortable appearing. Workup included CBC, CMP, lipase, urinalysis, urine test, urine culture, right upper quadrant ultrasound. She was given a bolus of IV fluids as well as IV Toradol, acetaminophen, and Zofran for symptomatic improvement. Labs obtained demonstrated mild leukopenia but otherwise reassuring CBC. Chemistry demonstrates mildly elevated BUN but normal liver enzymes, normal bilirubin, normal lipase. Urinalysis demonstrates proteinuria, positive bilirubin. She has some squamous cells and 3-5 white blood cells, with trace bacteria likely from skin contamination. She is negative for leukocyte esterase and nitrates, so I do not feel that UTI is most likely culprit at this time. Right upper quadrant ultrasound is pending at time of signout to oncoming provider, Dr. Hillman. <Ron Hillman MD - Last Filed: 01/24/25 17:45> Vital Signs: 01/24/25 13:26 Temperature 97.1 F L Temperature Source Oral Pulse Rate [Right] 91 H Respiratory Rate 18 Blood Pressure [Right Arm] 148/84 H Blood Pressure Mean [Right Arm] 105 Blood Pressure Source [Right Arm] Automatic Cuff Blood Pressure Position [Right Arm] Supine 02 Sat by Pulse Oximetry 98 Oxygen Delivery Method Room Air Lab Data Lab Results 01/24/25 13:15: Urine Color Yellow, Urine Appearance Clear, Urine pH 6.0, Ur Specific [place] >= 1.030, Urine Protein 1+ A, Urine Glucose (UA) Negative, Urine Ketones Trace, Urine Blood Negative, Urine Nitrate Negative, Urine Bilirubin 1+ A, Urine Urobilinogen 0.2, Ur Leukocyte Esterase Negative, Urine RBC None, Urine WBC 3-5, Ur Squamous Epith Cells 5-10, Urine Bacteria Trace, Urine HCG, Qual Negative 01/24/25 14:32: WBC 3.7 L, RBC 4.65, Hgb 12.2, Hct 38.4, MCV 82.6, MCH 26.2 L, MCHC 31.8, RDW 13.9, Plt Count 167, MPV 9.1, Neut % (Auto) 64.5, Lymph % (Auto) 25.6, [place] % (Auto) 5.9, Eos % (Auto) 3.2, Baso % (Auto) 0.5, Neut # (Auto) 2.4, Lymph # (Auto) 1.0, [place] # (Auto) 0.2, Eos # (Auto) 0.1, Baso # (Auto) 0.0, Sodium 139, Potassium 3.8, Chloride 106, Carbon Dioxide 24, Anion Gap 12.8, BUN 18 H, Creatinine 0.70, Estimated Creat Clear 185, Estimated GFR 102, Est GFR ( Amer) 123, Glucose 103 H, Calcium 9.6, Total Bilirubin 0.8, AST 24, ALT 11 L, Alkaline Phosphatase 104, Total Protein 7.3, Albumin 4.5, Globulin 2.8, Albumin/Globulin Ratio 1.6, Lipase 72 Orders (Tests/Meds): ED MEDICATIONS Discontinued Medications Generic Name Dose Route Start Last Admin Trade Name Kwadwoq PRN Reason Stop Dose Admin Acetaminophen 1,000 mg 01/24/25 14:23 01/24/25 14:38 Acetaminophen 1,000mg/100ml Vial IV 01/24/25 14:24 1,000 mg ONCE ONE Administration Belladonna Alkaloids 60 ml 01/24/25 16:26 01/24/25 16:44 Belladonna Alkaloids 60 Ml Ml PO 01/24/25 16:27 60 ml ONCE ONE Administration Dicyclomine HCl 20 mg 01/24/25 16:26 01/24/25 16:45 Dicyclomine 10mg Capsule PO 01/24/25 16:27 20 mg ONCE ONE Administration Lactated Ringer's 1,000 mls @ 999 mls/hr 01/24/25 14:22 01/24/25 14:38 Lactated Ringer's 1000 Ml Bag IV 01/24/25 15:22 999 mls/hr .Q1H1M ONE Administration Ketorolac Tromethamine 15 mg 01/24/25 14:22 01/24/25 14:38 Ketorolac 30mg/Ml Vial IV 01/24/25 14:23 15 mg ONCE ONE Administration Ondansetron HCl 4 mg 01/24/25 14:22 01/24/25 14:38 Ondansetron 4mg/2ml Vial IV 01/24/25 14:23 4 mg ONCE ONE Administration Pantoprazole Sodium 40 mg 01/24/25 16:26 01/24/25 16:44 Pantoprazole 40mg Tablet PO 01/24/25 16:27 40 mg ONCE ONE Administration ORDERS Category Date Time Status US RUQ [US abdomen limited] Stat Exams 01/24/25 14:22 Completed CBC w/Auto Diff [Complete Blood Count Auto Diff] Stat Lab 01/24/25 14:32 Completed CMP [Comprehensive Metabolic Panel] Stat Lab 01/24/25 14:32 Completed Lipase Stat Lab 01/24/25 14:32 Completed Urinalysis and Microscopic Stat Lab 01/24/25 13:15 Completed Urine , HCG Qual. Stat Lab 01/24/25 13:15 Completed Medical Decision Narrative: In summary, this patient is a 24-year-old female presenting to the Emergency Department for evaluation of right upper quadrant abdominal pain radiating to both flanks and epigastrium as well as nausea and diarrhea. Differential diagnoses considered include but are not limited to cholecystitis, choledocholithiasis, pancreatitis, gastroenteritis, colitis, cystitis, pyelonephritis. Ruling out the most morbid conditions drove assessment. It should be noted patient's history includes obesity and hypothyroidism which may or may not be at goal therapy. This complicates all aspects of care by increasing patient's risk for morbidity. I reviewed patient's past medical records and noted UTI back in November. On exam, the patient has right upper quadrant tenderness but no rebound or guarding. She is nontoxic-appearing but is uncomfortable appearing. Workup included CBC, CMP, lipase, urinalysis, urine test, urine culture, right upper quadrant ultrasound. She was given a bolus of IV fluids as well as IV Toradol, acetaminophen, and Zofran for symptomatic improvement. Labs obtained demonstrated mild leukopenia but otherwise reassuring CBC. Chemistry demonstrates mildly elevated BUN but normal liver enzymes, normal bilirubin, normal lipase. Urinalysis demonstrates proteinuria, positive bilirubin. She has some squamous cells and 3-5 white blood cells, with trace bacteria likely from skin contamination. She is negative for leukocyte esterase and nitrates, so I do not feel that UTI is most likely culprit at this time. Right upper quadrant ultrasound is pending at time of signout to oncoming provider, Dr. Hillman. Ron Hillman: Upon assumption of care patient is hemodynamically stable. Right upper quadrant ultrasound no cholelithiasis or cholecystitis or evidence of biliary obstruction. Hematologic labs reviewed by me and are nonactionable hCG negative urinalysis interpreted by me and not consistent with infection, plain films nonactionable. Upon repeat evaluation patient had resolution of pain with some nonspecific dizziness but was ambulatory at bedside and was tolerant p.o. Given this patient is appropriate for outpatient management at this time was given return precautions. Critical Care <Kenyatta Mckeon, - Last Filed: 01/24/25 15:03> Critical Care Time Critical Care Time: No
--- NOTE | 2025-01-24 15:14 | PC.NURSE ---
PT TO US
--- NOTE | 2025-01-24 15:30 | PC.NURSE ---
pt returned from radiology via
[2025-01-24] MEDS: BELLADONNA ALKALOIDS 60 ML ML PO (16:44)
[2025-01-24] MEDS: PANTOPRAZOLE 40MG TABLET 40 MG PO (16:44)
[2025-01-24] MEDS: DICYCLOMINE 10MG CAPSULE 20 MG PO (16:45)
[2025-01-24 17:46] VITALS: BP 139/80; PULSE 88; RESP 18; TEMP 36.2; O2SAT 99
== END 2025-01-24 17:55 | disposition home or self-care (01) ==
PROVIDERS: Emergency Provider Emergency Medicine; PCP Family Medicine
DX: R10.11 Right upper quadrant pain (principal); R11.0 Nausea; R19.7 Diarrhea, unspecified; M54.50 Low back pain, unspecified; R10.13 Epigastric pain
CPT/HCPCS: 76705; 80053; 81001; 81025; 83690; 85025; 96361; 96374; 96375; 99284; J0131; J1885; J2405; J7120

== ENCOUNTER 2025-02-13 13:56 | Outpatient (CLI) | payer OTHER, SELFPAY ==
[2025-02-13 15:13] LABS: HCG,Quantitative 1212 mIU/ml (0-5.42)
[2025-02-14 08:13] LABS: Progesterone 9.4 ng/mL (.)
== END 2025-02-13 23:59 | disposition home or self-care (01) ==
LOC: LAB 13:57
PROVIDERS: PCP Family Medicine; Visit Provider Obstetrics & Gynecology
DX: Z32.01 Encounter for pregnancy test, result positive (principal)
CPT/HCPCS: 36415; 84144; 84702

== ENCOUNTER 2025-03-07 09:18 | Outpatient (CLI) | payer OTHER, SELFPAY ==
[2025-03-07 10:29] LABS: Basophils % 0.4 % (0.1-2.0); Eosinophils # 0.2 Kmm3 (0.0-0.4); Eosinophils % 3.6 % (0.1-12.0); Hematocrit 38.9 % (37.0-47.0); Hemoglobin 12.9 g/dL (12.2-16.2); Immature Granulocytes # 0.01 10^3uL; Immature Granulocytes % 0.2 %; Lymphocytes # 1.2 K/mm3 (0.7-4.5); Mean Corpuscular HGB Conc 33.2 g/dL (31.8-35.4); Mean Corpuscular Hemoglobin 27.3 pg (27.0-31.2); Mean Corpuscular Volume 82.4 fl (81-99); Monocytes # 0.3 K/mm3 (0.1-1.0); Monocytes % 5.6 % (1.7-9.3); Neutrophils # 3.4 K/mm3 (1.8-7.8); Neutrophils % 67.2 % (37.0-80.0); Nucleated Red Blood Cells # 0 10^3/uL; Nucleated Red Blood Cells % 0 %; Platelet Count 187 K/mm3 (142-424); Red Blood Count 4.72 M/mm3 (4.20-5.40); Red Cell Distribution Width 13.9 % (11.5-17.5); Red Cell Distribution Width-SD 41.1 fL
[2025-03-07 11:57] LABS: Thyroid Stimulating Hormone 5.64 uIU/mL (0.465-4.68)
[2025-03-07 13:44] LABS: RPR W/RFX Titers Nonreactive (Nonreactive)
[2025-03-08 09:11] LABS: Hepatitis B Surface Antigen Negative (Negative); Rubella Antibodies, IgG 1.25 index (Immune >0.99)
== END 2025-03-07 23:59 | disposition home or self-care (01) ==
LOC: LAB 09:19
PROVIDERS: PCP Family Medicine; Visit Provider Obstetrics & Gynecology
DX: Z34.01 Encounter for supervision of normal first pregnancy, first trimester (principal); Z3A.08 8 weeks gestation of pregnancy
CPT/HCPCS: 36415; 84443; 85025; 86592; 86762; 86850; 87340

== ENCOUNTER 2025-04-21 11:28 | Outpatient (CLI) | payer OTHER, SELFPAY ==
[2025-04-21 12:44] LABS: Thyroid Stimulating Hormone 4.84 uIU/mL (0.465-4.68)
== END 2025-04-21 23:59 | disposition home or self-care (01) ==
LOC: LAB 11:29
PROVIDERS: PCP Family Medicine; Visit Provider Obstetrics & Gynecology
DX: E03.9 Hypothyroidism, unspecified (principal)
CPT/HCPCS: 36415; 84443

== ENCOUNTER 2025-05-15 19:54 | Emergency (ER) | payer OTHER, SELFPAY ==
[2025-05-15 20:06] VITALS: BP 133/82; PULSE 77; RESP 16; TEMP 37; O2SAT 99; BMI 37.4
--- NOTE | 2025-05-15 20:53 | ED_ITS ---
Discharge Plan Disposition Patient Disposition: Home, Self-Care Condition: Good Prescriptions Prescriptions: No Action montelukast 10 mg tablet PO Patient Comments: TAKE 1 TABLET 1 TIME EACH DAY IN THE EVENING FOR ALLERGIES promethazine 12.5 mg tablet 12.5 mg PO Q6H PRN (Reason: vomiting) Qty: 30 3RF levothyroxine [Synthroid] 100 mcg tablet 100 mcg PO DAILY Qty: 30 0RF Referrals Follow up/Referrals: Sanford Miller MD [Primary Care Provider, Internal Medicine] - See instructions Activity Restrictions/Add. Instructions Additional Instructions/Restrictions: Please follow up with your cloth printing inspector so they are aware you were seen in the ER today. If you have any new or worsening symptoms please return to the ER for further evaluation. Clinical Impressions Clinical Impression: heart rate present Qualifiers: Weeks of gestation: 17 weeks Qualified Code(s): Z3A.17 - 17 weeks gestation of Print Language Print Language: Spanish Discharge ED Provider: Kapil Burrows Adult HPI General Chief complaint: OB/Uterine Contractions Stated complaint: reduced movement in fetus Time Seen by Provider: 05/15/25 19:58 Mode of Arrival: Ambulatory Source of Information: Patient Description of Symptoms (Recalled from ER Triage Doc. by RN): Patient is 17 weeks ; states she has not felt movement since the , and usually feels baby regularly. This is her third and will be her third delivery; No issues with the so far. History of Present Illness HPI narrative: This is a 24-year-old female patient who is currently 17 weeks and is presenting to the emergency department today with concerns of the fact that she has not felt her baby move within her uterus for the last 24 hours. The patient was seen by her cloth printing inspector on 05/13/2025, 2 days ago. At this appointment she was feeling depressed and they restarted her on Prozac. At this appointment they did not measure her heart rate, however based off of her prior ultrasounds her estimated gestational age was 17 weeks and 4 days. Since she has noticed the symptoms of depressed movement she has not experienced any abdominal cramping, abdominal pain, flank pain, nausea, vomiting, dysuria, hematuria, increased urinary frequency, vaginal bleeding, and vaginal discharge. Related Data Home Medications ?Medication ?Instructions ?Recorded ?Confirmed montelukast 10 mg tablet mg PO 03/07/25 05/13/25 Previous Rx's ?Medication ?Instructions ?Recorded promethazine 12.5 mg tablet 12.5 mg PO Q6H PRN vomitin g #30 03/11/25 tabs levothyroxine 100 mcg tablet 100 mcg PO DAILY #30 tabs 04/22/25 (Synthroid) Allergies Allergy/AdvReac Type Severity Reaction Status Date / Time COVID-19 vaccine, Allergy Severe Anaphylaxis Verified 05/13/25 14:39 recombinant (Nova prochlorperazine (From Allergy Severe Other Verified 05/13/25 14:39 Compazine) influenza A (H5N1) virus AdvReac Severe Other Verified 05/13/25 14:39 vaccine mo ondansetron (From Zofran) AdvReac Nausea Verified 05/13/25 14:39 [facility] Disclaimer: The information contained in this section may have been updated after the patient was seen, as this information can be updated by other users. Medical History Hypothyroidism complicating Maternal obesity affecting , antepartum Encounter for IUD insertion Kyleena IUD inserted 05/08/24 Acute blood loss anemia ADHD Hypothyroidism Asthma Nelida's disease Anxiety Depression Allergies Surgical History S/P wisdom tooth extraction Family History Family/Other Cancer cervical-paternal side Mother Epilepsy Other Diabetes Social History Smoking Status: Former smoker tobacco type: e-cigarettes smoking status start date: vape alcohol intake: never substance use type: denies use current occupational status: unemployed Travel in the last 8 weeks?: Inside the [place] Have you lived/traveled outside US in past 30 days?: No Contact w/someone who lives/traveled outside US past 30 days?: No Exposure to someone with infectious disease in past 14 days?: No Do you have a fever (greater than 100.4 F or 38 C)?: No Have you tested positive for COVID-19?: No Exposed to someone with COVID-19 in past 14 days?: No Do you have a sore throat?: No Do you have a cough?: No Do you have any weakness?: No Do you have any diarrhea?: No Are you experiencing any unusual bleeding?: No Do you have any muscle aches/pain?: No Do you have any abdominal pain?: No Are you experiencing loss of taste or smell?: No Other Medical History Have you received the Flu Vaccine for this season: No Have you received the Pneumonia Vaccine: No ROS Obtained: Yes Systems reviewed as appropriate & no additional complaints except as documented Physical Exam General General appearance: alert and in no apparent distress Head Head exam: atraumatic and normocephalic Eye Eye exam: Present PERRL and EOMI ENT ENT exam: Present normal oropharynx and mucous membranes moist Neck Neck exam: Present full ROM and trachea midline Respiratory Respiratory exam: Present normal lung sounds bilaterally; Absent respiratory distress Cardiovascular Cardiovascular exam: Present regular rate and normal rhythm Abdominal Exam Abdominal exam: Present soft; Absent tenderness Comment: Gravid uterus on exam Extremities Exam Extremities exam: Present normal inspection; Absent tenderness Back Exam Back exam: Absent vertebral tenderness Neurological Exam Neurological exam: Present alert and oriented X3 Skin Skin exam: Present warm and dry Medical Decision Making Medical Records Medical records reviewed: Yes I reviewed the patient's medical records. Screening: Per USPSTF and CDC recommendations, given the prevalence of disease in our region, it is our hospital?s policy to screen for HIV and viral Hepatitis for all patients aged 18 and over and those with ongoing risk factors. Andrés Inquiry Pt receiving controlled substance: No Andrés was queried for this patient: No Vital Signs: 05/15/25 20:06 Temperature 98.6 F Temperature Source Oral Pulse Rate [Right Radial] 77 Respiratory Rate 16 Blood Pressure [Right Arm] 133/82 Blood Pressure Mean [Right Arm] 99 Blood Pressure Source [Right Arm] Automatic Cuff Blood Pressure Position [Right Arm] Supine 02 Sat by Pulse Oximetry 99 Oxygen Delivery Method Room Air Orders (Tests/Meds): ORDERS Category Date Time Status POCUS Point of Care (ER Only) Stat Exams 05/15/25 19:59 Ordered Medical Decision Narrative: In summary, this is a 24-year-old female patient who is presenting to the emergency department today with concerns of the fact that she is unable to feel her baby move for the last 24 hours. She is a and is currently estimated to be 17 weeks and 4 days as of 2 days ago at her last OB appointment. She has not had any additional symptoms that would raise concern for miscarriage, urinary tract infection, or vaginal infections. On initial evaluation of the patient they were resting comfortably in no acute distress and nontoxic in appearance. They are hemodynamically stable, saturating well room air, and are neurologically intact. On examination the patient has a gravid uterus. She has good distal perfusion. She has no tenderness of the flanks or the abdomen. Differential diagnosis includes spontaneous , inevitable , anxiety of , normal gestation, among others. While the patient was in the emergency department we initiated workup with [id number] ultrasound. On this examination the patient has adequate movement within the uterus and a heart rate of 150 bpm. Please see procedure note for details below. I did consider obtaining additional labs, however the patient has adequate follow-up with her cloth printing inspector who will be screening her for urinary tract infections during . I also do not feel that she would benefit from quantitative hCG measurements given that she has not experienced any symptoms consistent with and due to the fact that she has adequate heart rate and adequate movement noted on ultrasound Patient is ultimately reassured by her workup today. Return precautions have been given. I have requested that she follow-up with her cloth printing inspector. At this time all questions have been answered and all parties are agreeable with the decision to discharge Limited OB ultrasound Indication: Patient not feeling movement for the last 24-hours Identified structures: Uterus Findings: Uterus: Definitive IUP heart rate: heart rate of 150 Impression: IUP: Present heart rate: 150 Images were saved to permanent archive This study was technically adequate CPT transabdominal: 06823-16 This study was performed by me, and I personally interpreted all images/videos. Based on my clinical judgment these images were adequate and did not necessitate further imaging Critical Care Critical Care Time Critical Care Time: No
[2025-05-15 21:11] VITALS: BP 125/77; PULSE 83; RESP 16; TEMP 37; O2SAT 97
== END 2025-05-15 21:13 | disposition home or self-care (01) ==
PROVIDERS: Emergency Provider Student in an Organized Health Care Education/Training Program; PCP Family Medicine
DX: Z34.92 Encounter for supervision of normal pregnancy, unspecified, second trimester (principal)
CPT/HCPCS: 99283

== ENCOUNTER 2025-06-04 13:45 | Outpatient (CLI) | payer OTHER, SELFPAY ==
--- NOTE | 2025-06-04 14:00 | US_ITS ---
PROCEDURE: US OB /MATERNAL DETAIL CLINICAL INDICATION: 20 week anatomy scan COMPARISON: US US ABDOMEN LIMITED from 01/24/2025 FINDINGS: Transabdominal sonographic images of the pelvis were obtained. From her established due date she is 20 weeks 5 days. Single viable intrauterine gestation. Breech position. Placenta: Right lateralplacenta grade 1. There is an average amount of fluid. The cervix appears satisfactory. Closed and measuring 3.71 cm in length. Complete survey performed and was unremarkable on the submitted images as in PACS. No discrete anomalies identified on survey imaging by technologist. Active fetus. Three-vessel cord with satisfactory umbilical cord insertion. 4- chamber heart noted. Situs, aortic arch, LVOT, RVOT, three-vessel view appear normal. Survey of brain & ventricles Unremarkable. Cerebellum, thalamus, choroid plexus, cisterna magna appear normal. Face and neck survey unremarkable. Profile, nasion, lips and nose appeared normal. Diaphragm and chest views unremarkable. Abdomen: Both kidneys noted and unremarkable. Stomach and bladder noted and satisfactory. Spine: Survey of the spine satisfactory with no anomalies identified nor imaged. Cervical, thoracic, lower spine appear normal. Both arms and legs noted. Amniotic Fluid: Adequate. MVP 4.86 cm Measurements: Average ultrasound age 21weeks 2days. Estimated due date by ultrasound age 1210/13/2025. Estimated weight 419g BPD = 20weeks 5days HC = 20weeks 6days AC = 21weeks 3days FL = 21weeks 5days Growth Percentile= 80 Heart Rate = 147bpm Cerebellum = 18weeks 5days Humerus = 22weeks 4days HC/AC is 1.12 FL/BPD is 0.76 FL/AC is 0.22 IMPRESSION: 1. Viable fetus in the breech presentation with a right lateral placenta grade 1. 2. Fluid is within normal limits with an MVP 4.86 cm. 3. Complete spinal views and heart views were difficult due to position and would suggest returning in 2-3 weeks for repeat views. 4. The rest of the anatomical scan appears normal. 5. biometry is consistent with the dates. Dictated by: Marck Jaramillo MD 06/04/2025 17:44 Marck Jaramillo MD in [facility] 06/04/2025 17:45
== END 2025-06-04 23:59 | disposition home or self-care (01) ==
LOC: RAD 13:46
PROVIDERS: PCP Family Medicine; Visit Provider Obstetrics & Gynecology
DX: O32.1XX0 Maternal care for breech presentation, not applicable or unspecified (principal); O99.282 Endocrine, nutritional and metabolic diseases complicating pregnancy, second trimester; O99.212 Obesity complicating pregnancy, second trimester; E03.9 Hypothyroidism, unspecified; E66.9 Obesity, unspecified; Z3A.20 20 weeks gestation of pregnancy
CPT/HCPCS: 76811

== ENCOUNTER 2025-06-24 13:40 | Outpatient (CLI) | payer OTHER, SELFPAY ==
--- NOTE | 2025-06-24 13:45 | US_ITS ---
PROCEDURE: US OB FOLLOW UP CLINICAL INDICATION: f/u on spine and heart views of baby COMPARISON: US US OB /MATERNAL DETAIL from 06/04/2025 FINDINGS: Transabdominal sonographic images of the pelvis were obtained. The following parameters are obtained: From her established due date she is 23weeks 4days Viable fetus in the breech presentation with a lateral placenta grade 1. The cervix measures 3.70 cm heart rate: 152bpm bpm. Amniotic fluid subjectively appears normal. No obvious anomalies evident. profile seen, stomach, bladder, kidneys, three-vessel cord, four chamber heart appear normal. heart: Four-chamber view, LVOT, RVOT, three-vessel view appear normal. spine: Still difficult to view the entire spine. The cervical and thoracic spine appear normal. The lower spine is not well visualized due to position. IMPRESSION: 1. Viable fetus in the breech presentation with a lateral placenta grade 1. 2. Subjectively the fluid appears to be within normal limits. 3. Cardiac views today are normal. 4. spine views are still incomplete. The cervical and thoracic spine appear normal. The lower spine is not well visualized due to position. Would suggest repeat scan at 28 weeks. 5. The rest of the limited anatomical scan appears normal. Dictated by: Marck Jaramillo MD 06/24/2025 17:57 Marck Jaramillo MD in [facility] 06/24/2025 17:57
== END 2025-06-24 23:59 | disposition home or self-care (01) ==
LOC: RAD 13:40
PROVIDERS: PCP Family Medicine; Visit Provider Obstetrics & Gynecology
DX: O32.1XX0 Maternal care for breech presentation, not applicable or unspecified (principal); O99.212 Obesity complicating pregnancy, second trimester; O99.282 Endocrine, nutritional and metabolic diseases complicating pregnancy, second trimester; E66.9 Obesity, unspecified; E03.9 Hypothyroidism, unspecified; Z36.2 Encounter for other antenatal screening follow-up; Z3A.23 23 weeks gestation of pregnancy
CPT/HCPCS: 76816

== ENCOUNTER 2025-07-17 14:07 | Outpatient (CLI) | payer OTHER, SELFPAY | END 2025-07-17 23:59 | LOC: LAB.DROPOF 07-21 08:08 | PROVIDERS: PCP Obstetrics & Gynecology; Visit Provider Obstetrics & Gynecology | DX: O99.280 Endocrine, nutritional and metabolic diseases complicating pregnancy, unspecified trimester (principal); O99.210 Obesity complicating pregnancy, unspecified trimester; E03.9 Hypothyroidism, unspecified; E66.9 Obesity, unspecified; Z3A.00 Weeks of gestation of pregnancy not specified | CPT/HCPCS: 87086 ==

== ENCOUNTER 2025-07-17 18:25 | Emergency (ER) | payer OTHER, SELFPAY ==
[2025-07-17 18:56] VITALS: BP 154/84; PULSE 95; RESP 16; TEMP 36.9; O2SAT 98; BMI 39.9
--- NOTE | 2025-07-17 20:06 | US_ITS ---
PROCEDURE INFORMATION: Exam: US , Limited and US , Transvaginal Exam date and time: 07/17/2025 8:30 PM Age: 25 years old Clinical indication: Lmp or gestational age (in weeks): 26w6d; Antepartum complications; ; Rectal vs vag bleeding; Additional info: Bleeding in preg TECHNIQUE: Imaging protocol: Real-time ultrasound of the maternal uterus with image documentation. Transvaginal imaging was used for better evaluation of the fetus, adnexa, and/or cervix. Exam focused on the clinical indication. COMPARISON: US OB FOLLOW UP 06/24/2025 1:46 PM FINDINGS: Gestation: Single intrauterine gestation. heart rate: 144 bpm presentation and position: Breech. Placenta: Posterior location. No retroplacental bleed. No evidence of previa. Amniotic fluid (Largest pocket): 6.28 cm MATERNAL: Cervix: Measures 3.54 cm in length. Closed. IMPRESSION: Single live intrauterine gestation. No acute findings.
[2025-07-17] MEDS: 0.9 % SODIUM CHLORIDE 1000ML 1,000 ML 999 ML IV (20:25)
[2025-07-17 20:30] VITALS: BP 132/71; PULSE 95; O2SAT 97
--- NOTE | 2025-07-17 20:31 | ED_ITS ---
<Statement entered by Sharad Mahoney MD - 07/18/25 02:16> I was consulted by the LAURITA, and we discussed the complexity of the problems being addressed. I approve the treatment and management plan for this patient's care in the emergency department, thus performing a substantive portion of the medical decision making. Sharad Mahoney MD Discharge Plan Disposition Chief Complaint: GI Bleed Prescriptions Prescriptions: No Action montelukast 10 mg tablet PO Patient Comments: TAKE 1 TABLET 1 TIME EACH DAY IN THE EVENING FOR ALLERGIES fluoxetine 40 mg capsule 40 mg PO DAILY Qty: 30 2RF promethazine 12.5 mg tablet 12.5 mg PO Q6H PRN (Reason: vomiting) Qty: 30 3RF levothyroxine [Synthroid] 100 mcg tablet 100 mcg PO DAILY Qty: 30 0RF Referrals Follow up/Referrals: Sanford Miller MD [Primary Care Provider, Internal Medicine] - See instructions Instructions Patient Instructions: DI for Gastrointestinal Bleeding Print Language Print Language: Serbian Discharge ED Provider: Sharad Mahoney General Adult HPI General Chief complaint: GI Bleed Stated complaint: bleeding from rectum, 27 wks AP Time Seen by Provider: 07/17/25 19:50 Mode of Arrival: Ambulatory Source of Information: Patient Description of Symptoms (Recalled from ER Triage Doc. by RN): Patient states when she went to the bathroom earlier this afternoon to have a bowel movement, she noticed bright red bleeding. Patient is 27 weeks - COMPENSATION ADMINISTRATOR is Dr. Chung. G3, P2, Due date 10/17/25. Patient states she has known hemorrhoids. History of Present Illness HPI narrative: 25-year-old female presents to the ED today complaining of an episode where she had a bowel movement and had bright red bleeding. She is 27 weeks . She did see her OB Dr. Garay today. She says she explained that she has been having some cramping in her belly. She has been thinking it is gas pains. She was told that it might be a ligament pain. She says she knows she has hemorrhoids. On exam she has some small hemorrhoids externally but not thrombosed and not bleeding. Patient has 2 children. Related Data Home Medications ?Medication ?Instructions ?Recorded ?Confirmed montelukast 10 mg tablet mg PO 03/07/25 07/17/25 Previous Rx's ?Medication ?Instructions ?Recorded fluoxetine 40 mg capsule 40 mg PO DAILY #30 caps 05/23 01/14 promethazine 12.5 mg tablet 12.5 mg PO Q6H PRN vomitin g #30 06/04/25 tabs levothyroxine 100 mcg tablet 100 mcg PO DAILY #30 tabs 07/02/25 (Synthroid) Allergies Allergy/AdvReac Type Severity Reaction Status Date / Time COVID-19 vaccine, Allergy Severe Anaphylaxis Verified 07/17/25 13:49 recombinant (Nova prochlorperazine (From Allergy Severe Other Verified 07/17/25 13:49 Compazine) influenza A (H5N1) virus AdvReac Severe Other Verified 07/17/25 13:49 vaccine mo ondansetron (From Zofran) AdvReac Nausea Verified 07/17/25 13:49 PFS PFS Disclaimer: The information contained in this section may have been updated after the patient was seen, as this information can be updated by other users. Medical History Hypothyroidism complicating Maternal obesity affecting , antepartum Encounter for IUD insertion Kyleena IUD inserted 05/08/24 Acute blood loss anemia ADHD Hypothyroidism Asthma Nelida's disease Anxiety Depression Allergies Surgical History S/P wisdom tooth extraction Family History Family/Other Cancer cervical-paternal side Mother Epilepsy Other Diabetes Social History Smoking Status: Current every day smoker tobacco type: e-cigarettes smoking status start date: vape alcohol intake: never substance use type: denies use current occupational status: unemployed Travel in the last 8 weeks?: Inside the [place] Have you lived/traveled outside US in past 30 days?: No Contact w/someone who lives/traveled outside US past 30 days?: No Exposure to someone with infectious disease in past 14 days?: No Do you have a fever (greater than 100.4 F or 38 C)?: No Have you tested positive for COVID-19?: No Exposed to someone with COVID-19 in past 14 days?: No Do you have a sore throat?: No Do you have a cough?: No Do you have any weakness?: No Do you have any diarrhea?: No Are you experiencing any unusual bleeding?: No Do you have any muscle aches/pain?: No Do you have any abdominal pain?: No Are you experiencing loss of taste or smell?: No Other Medical History Have you received the Flu Vaccine for this season: No Have you received the Pneumonia Vaccine: No ROS Obtained: Yes Systems reviewed as appropriate & no additional complaints except as documented Constitutional Constitutional: Reports as per HPI Physical Exam General General appearance: alert Head Head exam: normocephalic Eye Eye exam: Present PERRL and EOMI ENT ENT exam: Present normal oropharynx and mucous membranes moist Neck Neck exam: Present full ROM and trachea midline Respiratory Respiratory exam: Present normal lung sounds bilaterally Cardiovascular Cardiovascular exam: Present regular rate, normal rhythm, normal heart sounds, +S1 and +S2 Abdominal Exam Abdominal exam: Present soft and normal bowel sounds Extremities Exam Extremities exam: Present normal inspection, full ROM and normal capillary refill Back Exam Back exam: Present normal inspection Neurological Exam Neurological exam: Present alert, oriented X3 and normal gait Skin Skin exam: Present warm, dry and intact Other Other exam information: Did a rectal exam and she does have some external hemorrhoids but they are not bleeding did not internal with digital rectal exam and still so no bleeding. This raised my concern for vaginal bleeding. Medical Decision Making Medical Records Screening: Per USPSTF and CDC recommendations, given the prevalence of disease in our region, it is our hospital?s policy to screen for HIV and viral Hepatitis for all patients aged 18 and over and those with ongoing risk factors. Andrés Inquiry Pt receiving controlled substance: No Andrés was queried for this patient: No Vital Signs: 07/17/25 18:56 07/17/25 20:30 07/17/25 21:30 Temperature 98.5 F Temperature Source Oral Pulse Rate 95 H 97 H Pulse Rate [Right Brachial] 95 H Respiratory Rate 16 Blood Pressure 132/71 131/74 Blood Pressure [Right Arm] 154/84 H Blood Pressure Mean [Right Arm] 107 Blood Pressure Source [Right Arm] Automatic Cuff Blood Pressure Position [Right Arm] Sitting 02 Sat by Pulse Oximetry 98 97 98 Oxygen Delivery Method Room Air Lab Data Lab Results 07/17/25 20:20: WBC 8.3, RBC 3.72 L, Hgb 10.8 L, Hct 31.8 L, MCV 85.5, MCH 29.0, MCHC 34.0, RDW 14.3, Plt Count 161, MPV 9.3, Neut % (Auto) 75.4, Lymph % (Auto) 15.9, [place] % (Auto) 5.2, Eos % (Auto) 2.5, Baso % (Auto) 0.2, Neut # (Auto) 6.3, Lymph # (Auto) 1.3, [place] # (Auto) 0.4, Eos # (Auto) 0.2, Baso # (Auto) 0.0, PT 10.9, INR 0.98, APTT 32.2 H, Sodium 132 L, Potassium 4.0, Chloride 102, Carbon Dioxide 21 L, Anion Gap 13.0, BUN 13, Creatinine 0.60, Estimated Creat Clear 237, Estimated GFR 121, Est GFR ( Amer) 146, Glucose 112 H, Calcium 8.8, Magnesium 1.7, Total Bilirubin 0.4, AST 15, ALT 6 L, Alkaline Phosphatase 116, Total Protein 6.6, Albumin 3.8, Globulin 2.8, Albumin/Globulin Ratio 1.4, Lipase 108, Blood Type O Positive 07/17/25 20:20 07/17/25 20:20 Orders (Tests/Meds): ED MEDICATIONS Discontinued Medications Generic Name Dose Route Start Last Admin Trade Name Freq PRN Reason Stop Dose Admin Sodium Chloride 1,000 mls @ 999 mls/hr 07/17/25 20:06 07/17/25 22:00 Sod Chlor 0.9% 1000ml Bag IV 07/17/25 21:06 Infused .Q1H1M ONE Infusion ORDERS Category Date Time Status ABO/RH Type Stat BBK 07/17/25 20:20 Completed CBC [Complete Blood Count Auto Diff] Stat Lab 07/17/25 20:20 Completed Comprehensive Metabolic Panel Stat Lab 07/17/25 20:20 Completed Lipase Stat Lab 07/17/25 20:20 Completed Magnesium Stat Lab 07/17/25 20:20 Completed PT INR [Prothrombin Time INR] Stat Lab 07/17/25 20:20 Completed PTT [Activated Partial Thrombo Time] Stat Lab 07/17/25 20:20 Completed US OB follow up Routine Ultrasound 07/17/25 Completed US OB transvaginal Stat Ultrasound 07/17/25 20:06 Completed Medical Decision Narrative: patient is a 25-year-old female presenting to the emergency department for evaluation of rectal bleeding when she had bowel movement today. However when I did rectal exam there was no rectal bleeding external or internally. This raised my suspicion for vaginal bleeding. She is 27 weeks and she has been dizzy as well as having cramping in her low abdomen. I called her COMPENSATION ADMINISTRATOR for an ultrasound to be sure this is not vaginal bleeding. Patient is hemodynamically stable and nontoxic-appearing upon arrival, afebrile. Differential diagnosis includes internal hemorrhoids, vaginal bleeding during , among others. Ultrasound was normal. Patient's labs were normal. Discussed with patient that she needs to follow-up with her PCP tomorrow and talk to her OB as well. Since everything is normal and I did not see any blood on exam I feel safe that she can go home and follow tomorrow. Patient is safe for discharge home Critical Care Critical Care Time Critical Care Time: No
[2025-07-17 20:37] LABS: Hematocrit 31.8 % (37.0-47.0); Hemoglobin 10.8 g/dL (12.2-16.2); Immature Granulocytes % 0.8 %; Mean Corpuscular HGB Conc 34.0 g/dL (31.8-35.4); Mean Corpuscular Hemoglobin 29.0 pg (27.0-31.2); Mean Corpuscular Volume 85.5 fl (81-99); Nucleated Red Blood Cells % 0 %; Platelet Count 161 K/mm3 (142-424); Red Blood Count 3.72 M/mm3 (4.20-5.40); Red Cell Distribution Width-SD 44.4 fL; White Blood Count 8.3 K/mm3 (4.8-10.8)
[2025-07-17 20:42] LABS: Albumin Level 3.8 g/dl (3.5-5.0); Chloride 102 mmol/L (98-107); Potassium 4.0 mmoL/L (3.5-5.1); Sodium 132 mmol/L (136-145)
[2025-07-17 20:45] LABS: Alanine Aminotransferase 6 U/L (12-78); Albumin/Globulin Ratio 1.4 (1.1-1.8); Alkaline Phosphatase 116 U/L (38-126); Anion Gap 13.0 mEq/L (5-15); Aspartate Amino Transferase 15 U/L (14-36); Bilirubin,Total 0.4 mg/dl (0.2-1.3); Blood Urea Nitrogen 13 mg/dl (7-17); Calcium 8.8 mg/dl (8.4-10.2); Carbon Dioxide 21 mmol/L (22.0-30.0); Creatinine Clearance Estimated 237 mL/min (50-200); Creatinine,Serum 0.60 mg/dl (0.52-1.04); Estimated Glomerular Filt Rate 121 ml/min (>60); GFR (African American) 146 ML/MIN (>60); Globulin 2.8 g/dL (1.3-3.2); Glucose 112 mg/dl (74-100); Lipase 108 U/L (23-300); Total Protein,Serum 6.6 g/dl (6.3-8.2)
[2025-07-17 20:46] LABS: Magnesium 1.7 mg/dl (1.6-2.3)
[2025-07-17 20:47] LABS: Activated Partial Thrombo Time 32.2 seconds (22.8-30.6); INR 0.98 (0.9-1.1); Prothrombin Time 10.9 seconds (10.1-12.5)
[2025-07-17 21:30] VITALS: BP 131/74; PULSE 97; O2SAT 98
[2025-07-17 22:23] VITALS: BP 119/69; PULSE 91; RESP 18; TEMP 36.9; O2SAT 97
== END 2025-07-17 22:27 | disposition home or self-care (01) ==
PROVIDERS: Nurse Practitioner; Emergency Provider Student in an Organized Health Care Education/Training Program; PCP Family Medicine
DX: O26.892 Other specified pregnancy related conditions, second trimester (principal); K92.1 Melena; R10.819 Abdominal tenderness, unspecified site; R42 Dizziness and giddiness; K64.9 Unspecified hemorrhoids; Z3A.27 27 weeks gestation of pregnancy
CPT/HCPCS: 76816; 76817; 80053; 83690; 83735; 85025; 85610; 85730; 86900; 86901; 96360; 99284; J7030

== ENCOUNTER 2025-07-25 13:17 | Outpatient (CLI) | payer OTHER, SELFPAY ==
--- NOTE | 2025-07-25 13:30 | US_ITS ---
PROCEDURE: US OB FOLLOW UP CLINICAL INDICATION: spinal views and growth COMPARISON: US US OB /MATERNAL DETAIL from 06/04/2025 US US OB FOLLOW UP from 06/24/2025 US US OB TRANSVAGINAL from 07/17/2025 FINDINGS: Transabdominal sonographic images of the pelvis were obtained. The following parameters are obtained: From her established due date she is 28weeks 0 days Viable fetus in the cephalic presentation with a right lateral placenta grade 2. The cervix measures 4.54 cm heart rate: 153bpm bpm. Amniotic fluid index: 11.74cm, MVP 5.03 cm No obvious anomalies evident. profile seen, stomach, bladder, kidneys, three-vessel cord, four chamber heart appear normal. spine: Cervical, thoracic, lower spine appear normal. IMPRESSION: 1. Viable fetus in the cephalic presentation with a right lateral placenta grade 2. 2. The fluid is within normal limits with an amniotic fluid index 11.72 cm, MVP 5.03 cm. 3. spine is visualized and appears normal. 4. The rest of the limited anatomical scan appears normal. Dictated by: Marck Jaramillo MD 07/26/2025 09:02 Marck Jaramillo MD in [facility] 07/26/2025 09:02
[2025-07-25 14:55] LABS: Hematocrit 31.3 % (37.0-47.0); Hemoglobin 10.3 g/dL (12.2-16.2); Immature Granulocytes % 1.0 %; Mean Corpuscular HGB Conc 32.9 g/dL (31.8-35.4); Mean Corpuscular Hemoglobin 28.4 pg (27.0-31.2); Mean Corpuscular Volume 86.2 fl (81-99); Nucleated Red Blood Cells % 0 %; Platelet Count 144 K/mm3 (142-424); Red Blood Count 3.63 M/mm3 (4.20-5.40); Red Cell Distribution Width-SD 44.7 fL; White Blood Count 8.1 K/mm3 (4.8-10.8)
[2025-07-25 15:05] LABS: Glucose 1 Hour 128 mg/dL (74-100)
[2025-07-25 15:36] LABS: Thyroid Stimulating Hormone 1.52 uIU/mL (0.465-4.68)
== END 2025-07-25 23:59 | disposition home or self-care (01) ==
LOC: RAD 13:17
PROVIDERS: PCP Family Medicine; Visit Provider Obstetrics & Gynecology
DX: O99.283 Endocrine, nutritional and metabolic diseases complicating pregnancy, third trimester (principal); E03.9 Hypothyroidism, unspecified; O99.213 Obesity complicating pregnancy, third trimester; Z3A.28 28 weeks gestation of pregnancy
CPT/HCPCS: 36415; 76816; 82947; 84443; 85025; 86592

== ENCOUNTER 2025-08-20 21:08 | Outpatient (CLI) | payer OTHER, SELFPAY ==
[2025-08-20 21:13] VITALS: BMI 41.3
[2025-08-20 21:44] VITALS: BP 126/67; PULSE 110; RESP 16; TEMP 36.6; O2SAT 97; BMI 41.3
[2025-08-20 21:51] LABS: Microscopic, Urine URINE MICROSCOPIC (MICROSCOPIC)
[2025-08-20 21:55] LABS: Bilirubin,Urine Negative (Negative); Color,Urine YELLOW (Yellow); Glucose,Urine (UA) Negative (Negative); Ketones,Urine TRACE (Negative); Leukocyte Esterase,Urine Negative (Negative); PH,Urine 7.0 (5.0-8.5); Protein,Urine 1+ (Negative); Specific Gravity, Urine 1.025 (1.005-1.030); Urobilinogen,Urine 1.0 EU/dl (0.2)
[2025-08-20 22:14] LABS: Fetal Membrane Rupture (Rapid) Negative (Negative)
[2025-08-20 22:23] LABS: Bacteria,Urine 2+ /lpf; RBC,Urine Occasional #/hpf (0-3); Squamous Epithelial Cell,Urine 20-50 #/hpf (0-5)
== END 2025-08-20 22:35 | disposition home or self-care (01) ==
LOC: OBOUT 21:10 → OB 21:11
PROVIDERS: PCP Family Medicine; Visit Provider Nurse Practitioner Obstetrics & Gynecology
DX: O42.913 Preterm premature rupture of membranes, unspecified as to length of time between rupture and onset of labor, third trimester (principal); O99.891 Other specified diseases and conditions complicating pregnancy; R10.20 Pelvic and perineal pain unspecified side; R10.9 Unspecified abdominal pain; Z3A.31 31 weeks gestation of pregnancy
CPT/HCPCS: 59025; 81001; 84112; 87086; 99212; G0463

== ENCOUNTER 2025-08-22 14:38 | Outpatient (CLI) | payer OTHER, SELFPAY ==
--- NOTE | 2025-08-22 15:00 | US_ITS ---
PROCEDURE: US OB BIOPHYSICAL PROFILE CLINICAL INDICATION: BPP and Growth COMPARISON: US US OB /MATERNAL DETAIL from 06/04/2025 US US OB FOLLOW UP from 06/24/2025 US US OB TRANSVAGINAL from 07/17/2025 US OB FOLLOW UP from 07/25/2025 FINDINGS: Transabdominal sonographic images of the uterus were obtained. From her established due date she is 32weeks 0 days. The following parameters are obtained: Viable Fetus in the cephalic presentation with a anteroposterior laterally wrapped placenta grade 1. Average ultrasound age is 34weeks 6days Estimated weight 2,423g, 5 lb 5 oz Cervix measures 3.51 cm in length. Measurements: heart Rate = 147bpm BPD = 35weeks 0 days, >98 percentile HC = 36weeks 3days, >98 percentile AC = 34weeks 3days, 97 percentile FL = 33weeks 4days, 77 percentile HC/AC is 1.06 FL/BPD is 0.75 FL/AC is 0.21 97 percentile Amniotic fluid index: 13.68cm, MVP 7.24 cm. Qualitative AFV:2 Breathing movements: 2 Gross Body Movements: 2 Tone: 2 Biophysical profile score: 8 No obvious anomalies evident.Kidneys, profile, stomach, bladder, four-chamber heart, three-vessel cord appear normal. IMPRESSION: 1. Viable fetus in the cephalic presentation with an anteroposterior laterally wrapped placenta grade 1. 2. The fluid is within normal limits with an amniotic fluid index 13.68 cm, MVP 7.24 cm. 3. Biophysical profile is 8/8 with good breathing movement and movement seen. 4. There has been accelerated growth with the fetus currently 97th percentile. The head is more than 3 weeks ahead and the abdominal circumference is greater than 2 weeks ahead. Suggest repeat scan for growth in 4 weeks. 5. Limited anatomical scan appears normal. Dictated by: Marck Jaramillo MD 08/22/2025 19:06 Marck Jaramillo MD in [facility] 08/22/2025 19:06
== END 2025-08-22 23:59 | disposition home or self-care (01) ==
LOC: RAD 14:38
PROVIDERS: PCP Family Medicine; Visit Provider Obstetrics & Gynecology
DX: O36.63X0 Maternal care for excessive fetal growth, third trimester, not applicable or unspecified (principal); O99.213 Obesity complicating pregnancy, third trimester; O99.283 Endocrine, nutritional and metabolic diseases complicating pregnancy, third trimester; E03.9 Hypothyroidism, unspecified; E66.9 Obesity, unspecified; Z3A.32 32 weeks gestation of pregnancy
CPT/HCPCS: 76816; 76819

== ENCOUNTER 2025-09-02 13:12 | Outpatient (CLI) | payer OTHER, SELFPAY ==
[2025-09-02] VITALS (10 sets, daily range): BP systolic 107–127; BP diastolic 59–89; PULSE 121; RESP 20; TEMP 36.9; O2SAT 95; BMI 40.8
[2025-09-02 13:37] LABS: Microscopic, Urine URINE MICROSCOPIC (MICROSCOPIC)
[2025-09-02 13:43] LABS: Color,Urine YELLOW (Yellow); Glucose,Urine (UA) Negative (Negative); Ketones,Urine 1+ (Negative); Leukocyte Esterase,Urine Negative (Negative); PH,Urine 8.0 (5.0-8.5); Protein,Urine 2+ (Negative); Specific Gravity, Urine >= 1.030 (1.005-1.030); Urobilinogen,Urine 1.0 EU/dl (0.2)
[2025-09-02 13:47] LABS: Bilirubin,Urine 1+ (Negative)
[2025-09-02 14:04] LABS: Bacteria,Urine Trace /lpf; RBC,Urine Occasional #/hpf (0-3); WBC,Urine Occasional #/hpf (0-3)
[2025-09-02] MEDS: LACTATED RINGERS 1000ML 500 ML 999 ML IV (14:36)
[2025-09-02 14:44] LABS: Hematocrit 30.5 % (37.0-47.0); Hemoglobin 10.0 g/dL (12.2-16.2); Immature Granulocytes % 0.9 %; Mean Corpuscular HGB Conc 32.8 g/dL (31.8-35.4); Mean Corpuscular Hemoglobin 27.2 pg (27.0-31.2); Mean Corpuscular Volume 83.1 fl (81-99); Nucleated Red Blood Cells % 0 %; Platelet Count 163 K/mm3 (142-424); Red Blood Count 3.67 M/mm3 (4.20-5.40); Red Cell Distribution Width-SD 42.1 fL; White Blood Count 7.5 K/mm3 (4.8-10.8)
[2025-09-02] MEDS: ACETAMINOPHEN 325MG TAB 650 MG PO (14:50)
[2025-09-02 15:26] LABS: Alanine Aminotransferase 8 U/L (12-78); Albumin Level 3.6 g/dl (3.5-5.0); Albumin/Globulin Ratio 1.0 (1.1-1.8); Alkaline Phosphatase 211 U/L (38-126); Anion Gap 7.8 mEq/L (5-15); Aspartate Amino Transferase 18 U/L (14-36); Bilirubin,Total 0.6 mg/dl (0.2-1.3); Blood Urea Nitrogen 8 mg/dl (7-17); Calcium 9.6 mg/dl (8.4-10.2); Carbon Dioxide 21 mmol/L (22.0-30.0); Chloride 103 mmol/L (98-107); Creatinine Clearance Estimated 182 mL/min (50-200); Creatinine,Serum 0.80 mg/dl (0.52-1.04); Estimated Glomerular Filt Rate 87 ml/min (>60); GFR (African American) 105 ML/MIN (>60); Globulin 3.6 g/dL (1.3-3.2); Glucose 114 mg/dl (74-100); Potassium 3.8 mmoL/L (3.5-5.1); Sodium 128 mmol/L (136-145); Total Protein,Serum 7.2 g/dl (6.3-8.2)
== END 2025-09-02 17:20 | disposition home or self-care (01) ==
LOC: OBOUT 13:14 → OB 13:16
PROVIDERS: PCP Family Medicine; Visit Provider Obstetrics & Gynecology
DX: O99.891 Other specified diseases and conditions complicating pregnancy (principal); R51.9 Headache, unspecified; R03.0 Elevated blood-pressure reading, without diagnosis of hypertension; Z3A.33 33 weeks gestation of pregnancy
CPT/HCPCS: 80053; 81001; 82570; 84156; 85025; 99214; J7120

== ENCOUNTER 2025-09-05 15:23 | Outpatient (CLI) | payer OTHER, SELFPAY ==
[2025-09-09 15:12] LABS: Albumin, U 36.2 % (.); Alpha-1-Globulin, U 8.0 % (.); Alpha-2-Globulin, U 12.0 % (.); Beta Globulin, U 29.2 % (.); Gamma Globulin, U 14.7 % (.); Prot,24hr calculated 117 mg/24 hr (30-150)
[2025-09-16 15:08] LABS: PDF: SCANNED IMAGE
== END 2025-09-05 23:59 | disposition home or self-care (01) ==
PROVIDERS: PCP Family Medicine; Visit Provider Obstetrics & Gynecology
DX: O26.893 Other specified pregnancy related conditions, third trimester (principal); R51.9 Headache, unspecified; R03.0 Elevated blood-pressure reading, without diagnosis of hypertension; Z3A.33 33 weeks gestation of pregnancy
CPT/HCPCS: 84156; 84166

== ENCOUNTER 2025-09-05 16:21 | Outpatient (CLI) | payer OTHER, SELFPAY ==
[2025-09-05 16:29] VITALS: BMI 41.5
--- NOTE | 2025-09-05 16:29 | US_ITS ---
PROCEDURE INFORMATION: Exam: US Biophysical Profile Without Non-Stress Test Exam date and time: 09/05/2025 4:50 PM Age: 25 years old Clinical indication: Pain indication: Pelvic and back pain; ; Additional info: Hypertension in TECHNIQUE: Imaging protocol: US biophysical profile without non-stress testing. COMPARISON: US OB BIOPHYSICAL PROFILE 08/22/2025 2:30 PM FINDINGS: BIOPHYSICAL PROFILE: breathing (BPP): 2 out of 2. gross body movement (BPP): 2 out of 2. tone (BPP): 2 out of 2. Amniotic fluid (BPP): 2 out of 2. IMPRESSION: 1. Biophysical profile score is 8 out of 8. 2. Cephalic presentation. 3. ALEXIS = 12.5 cm. 4. heart rate is 140 bpm. 5. Cervical length measures 2.9 cm.
[2025-09-05 17:03] LABS: Hematocrit 30.5 % (37.0-47.0); Hemoglobin 9.8 g/dL (12.2-16.2); Immature Granulocytes % 1.7 %; Mean Corpuscular HGB Conc 32.1 g/dL (31.8-35.4); Mean Corpuscular Hemoglobin 26.7 pg (27.0-31.2); Mean Corpuscular Volume 83.1 fl (81-99); Nucleated Red Blood Cells % 0.3 %; Platelet Count 166 K/mm3 (142-424); Red Blood Count 3.67 M/mm3 (4.20-5.40); Red Cell Distribution Width-SD 42.5 fL; White Blood Count 7.8 K/mm3 (4.8-10.8)
[2025-09-05 17:11] LABS: Alanine Aminotransferase 7 U/L (12-78); Albumin Level 3.7 g/dl (3.5-5.0); Albumin/Globulin Ratio 1.2 (1.1-1.8); Alkaline Phosphatase 215 U/L (38-126); Anion Gap 10.9 mEq/L (5-15); Aspartate Amino Transferase 18 U/L (14-36); Bilirubin,Total 0.5 mg/dl (0.2-1.3); Blood Urea Nitrogen 15 mg/dl (7-17); Calcium 9.7 mg/dl (8.4-10.2); Carbon Dioxide 19 mmol/L (22.0-30.0); Chloride 105 mmol/L (98-107); Creatinine Clearance Estimated 92 mL/min (50-200); Creatinine,Serum 0.80 mg/dl (0.52-1.04); Estimated Glomerular Filt Rate 87 ml/min (>60); GFR (African American) 105 ML/MIN (>60); Globulin 3.2 g/dL (1.3-3.2); Glucose 79 mg/dl (74-100); Potassium 3.9 mmoL/L (3.5-5.1); Sodium 131 mmol/L (136-145); Total Protein,Serum 6.9 g/dl (6.3-8.2); Uric Acid 6.4 mg/dl (2.5-6.2)
[2025-09-05 17:20] VITALS: BP 127/86; PULSE 98; RESP 17; TEMP 36.8; O2SAT 96; BMI 41.5
[2025-09-05 17:56] LABS: Microscopic, Urine URINE MICROSCOPIC (MICROSCOPIC)
[2025-09-05 17:57] LABS: Color,Urine YELLOW (Yellow); Glucose,Urine (UA) Negative (Negative); Ketones,Urine 1+ (Negative); Leukocyte Esterase,Urine 1+ (Negative); PH,Urine 6.5 (5.0-8.5); Protein,Urine TRACE (Negative); Specific Gravity, Urine 1.020 (1.005-1.030); Urobilinogen,Urine 0.2 EU/dl (0.2)
[2025-09-05 17:59] LABS: Bilirubin,Urine 1+ (Negative)
[2025-09-05] MEDS: LACTATED RINGERS 1000ML 1,000 ML 999 ML IV (18:00)
[2025-09-05] MEDS: FAMOTIDINE 20MG/2ML VIAL 20 MG IV (18:15)
[2025-09-05 18:39] LABS: Bacteria,Urine 4+ /lpf
[2025-09-05 19:56] VITALS: BP 114/72
== END 2025-09-05 20:10 | disposition home or self-care (01) ==
LOC: OBOUT 16:23 → OB 16:24
PROVIDERS: PCP Family Medicine; Visit Provider Obstetrics & Gynecology
DX: O13.3 Gestational [pregnancy-induced] hypertension without significant proteinuria, third trimester (principal); O99.891 Other specified diseases and conditions complicating pregnancy; M54.9 Dorsalgia, unspecified; R10.20 Pelvic and perineal pain unspecified side; Z3A.34 34 weeks gestation of pregnancy
CPT/HCPCS: 59025; 76819; 80053; 81001; 84550; 85025; 87086; 96360; 99213; J1308; J7120

== ENCOUNTER 2025-09-10 13:22 | Outpatient (CLI) | payer OTHER, SELFPAY ==
--- NOTE | 2025-09-10 13:45 | US_ITS ---
PROCEDURE: US OB BIOPHYSICAL PROFILE CLINICAL INDICATION: BPP by 09/11/25 COMPARISON: US US OB /MATERNAL DETAIL from 06/04/2025 US OB FOLLOW UP from 06/24/2025 US OB TRANSVAGINAL from 07/17/2025 US OB FOLLOW UP from 07/25/2025 US OB BIOPHYSICAL PROFILE from 08/22/2025 US OB BIOPHYSICAL PROFILE from 09/05/2025 FINDINGS: Transabdominal sonographic images of the uterus were obtained. From her established due date she is 34weeks 5days. The following parameters are obtained: Viable Fetus in the cephalic presentation with a right fundal placenta grade 2. Measurements: heart Rate = 152bpm Amniotic fluid index: 11.17cm, MVP 3.26 cm Qualitative AFV:2 Breathing movements: 2 Gross Body Movements: 2 Tone: 2 Biophysical profile score: 8 No obvious anomalies evident.Kidneys, stomach, bladder, four-chamber heart, three-vessel cord appear normal. IMPRESSION: 1. Viable fetus in the cephalic presentation with a right fundal placenta grade 2. 2. The fluid is within normal limits with an amniotic fluid index 11.17 cm, MVP 3.26 cm. 3. Biophysical profile is 8/8 with good breathing movement and movement seen. 4. Limited anatomical scan appears normal. Dictated by: Marck Jaramillo MD 09/10/2025 16:42 Marck Jaramillo MD in [facility] 09/10/2025 16:42
== END 2025-09-10 23:59 | disposition home or self-care (01) ==
LOC: RAD 13:23
PROVIDERS: PCP Family Medicine; Visit Provider Obstetrics & Gynecology
DX: O36.63X0 Maternal care for excessive fetal growth, third trimester, not applicable or unspecified (principal); O99.283 Endocrine, nutritional and metabolic diseases complicating pregnancy, third trimester; O99.213 Obesity complicating pregnancy, third trimester; E03.9 Hypothyroidism, unspecified; E66.9 Obesity, unspecified; Z3A.34 34 weeks gestation of pregnancy
CPT/HCPCS: 76819

== ENCOUNTER 2025-09-19 12:26 | Outpatient (CLI) | payer OTHER, SELFPAY ==
[2025-09-19 12:45] VITALS: BP 137/87; PULSE 113; RESP 17; TEMP 37.2; O2SAT 97; BMI 41.7
[2025-09-19 12:59] VITALS: BP 121/80; PULSE 100
== END 2025-09-19 13:35 | disposition home or self-care (01) ==
LOC: OBOUT 12:28 → OB 12:30
PROVIDERS: PCP Family Medicine; Visit Provider Nurse Practitioner Obstetrics & Gynecology
DX: Z34.83 Encounter for supervision of other normal pregnancy, third trimester (principal); Z3A.36 36 weeks gestation of pregnancy
CPT/HCPCS: 99212

== ENCOUNTER 2025-09-23 10:23 | Outpatient (CLI) | payer OTHER, SELFPAY ==
[2025-09-23 10:40] LABS: Microscopic, Urine URINE MICROSCOPIC (MICROSCOPIC)
[2025-09-23 10:45] LABS: Color,Urine ORANGE (Yellow); Glucose,Urine (UA) Negative (Negative); Ketones,Urine 1+ (Negative); Leukocyte Esterase,Urine Negative (Negative); PH,Urine 6.5 (5.0-8.5); Protein,Urine 2+ (Negative); Specific Gravity, Urine 1.020 (1.005-1.030); Urobilinogen,Urine 1.0 EU/dl (0.2)
[2025-09-23 10:46] VITALS: BP 132/86; PULSE 100; RESP 19; TEMP 37; O2SAT 98; BMI 41.7
[2025-09-23 10:46] LABS: Bilirubin,Urine 1+ (Negative)
[2025-09-23 10:53] LABS: RBC,Urine Occasional #/hpf (0-3)
== END 2025-09-23 11:18 | disposition home or self-care (01) ==
LOC: OBOUT 10:25 → OB 10:26
PROVIDERS: PCP Family Medicine; Visit Provider Nurse Practitioner Obstetrics & Gynecology
DX: O26.853 Spotting complicating pregnancy, third trimester (principal); O99.891 Other specified diseases and conditions complicating pregnancy; R51.9 Headache, unspecified; Z3A.36 36 weeks gestation of pregnancy
CPT/HCPCS: 81001; 99212

== ENCOUNTER 2025-09-23 12:52 | Outpatient (CLI) | payer OTHER, SELFPAY ==
[2025-09-23 09:19] VITALS: BMI 41.7
[2025-09-23 13:29] LABS: Hematocrit 30.3 % (37.0-47.0); Hemoglobin 9.6 g/dL (12.2-16.2); Immature Granulocytes % 1.1 %; Mean Corpuscular HGB Conc 31.7 g/dL (31.8-35.4); Mean Corpuscular Hemoglobin 25.7 pg (27.0-31.2); Mean Corpuscular Volume 81.2 fl (81-99); Nucleated Red Blood Cells % 0.6 %; Platelet Count 180 K/mm3 (142-424); Red Blood Count 3.73 M/mm3 (4.20-5.40); Red Cell Distribution Width-SD 42.5 fL; White Blood Count 6.3 K/mm3 (4.8-10.8)
[2025-09-23 13:38] LABS: Chloride 104 mmol/L (98-107)
[2025-09-23 13:39] LABS: Albumin Level 3.5 g/dl (3.5-5.0); Potassium 4.3 mmoL/L (3.5-5.1); Sodium 133 mmol/L (136-145)
[2025-09-23 13:42] LABS: Alanine Aminotransferase 12 U/L (12-78); Albumin/Globulin Ratio 1.1 (1.1-1.8); Alkaline Phosphatase 233 U/L (38-126); Anion Gap 16.3 mEq/L (5-15); Aspartate Amino Transferase 20 U/L (14-36); Bilirubin,Total 0.6 mg/dl (0.2-1.3); Blood Urea Nitrogen 13 mg/dl (7-17); Calcium 8.7 mg/dl (8.4-10.2); Carbon Dioxide 17 mmol/L (22.0-30.0); Creatinine Clearance Estimated 82 mL/min (50-200); Creatinine,Serum 0.90 mg/dl (0.52-1.04); Estimated Glomerular Filt Rate 76 ml/min (>60); GFR (African American) 92 ML/MIN (>60); Globulin 3.2 g/dL (1.3-3.2); Glucose 157 mg/dl (74-100); Total Protein,Serum 6.7 g/dl (6.3-8.2)
== END 2025-09-23 23:59 | disposition home or self-care (01) ==
LOC: PREOP 12:52
PROVIDERS: PCP Family Medicine; Visit Provider Obstetrics & Gynecology
DX: Z01.812 Encounter for preprocedural laboratory examination (principal)
CPT/HCPCS: 80053; 85025

== ENCOUNTER 2025-09-23 14:36 | Outpatient (CLI) | payer OTHER, SELFPAY ==
--- NOTE | 2025-09-23 14:45 | US_ITS ---
PROCEDURE: US OB BIOPHYSICAL PROFILE CLINICAL INDICATION: BPP COMPARISON: US US OB /MATERNAL DETAIL from 06/04/2025 US US OB FOLLOW UP from 06/24/2025 US US OB TRANSVAGINAL from 07/17/2025 US OB FOLLOW UP from 07/25/2025 US US OB BIOPHYSICAL PROFILE from 08/22/2025 US US OB BIOPHYSICAL PROFILE from 09/05/2025 US US OB BIOPHYSICAL PROFILE from 09/10/2025 FINDINGS: Transabdominal sonographic images of the uterus were obtained. From her established due date she is 36weeks 4days. The following parameters are obtained: Viable Fetus in the cephalic presentation with a right lateral placenta grade 2. The cervix measures 3.57 cm in length Average ultrasound age is 38weeks 5days Estimated weight 3,492g, 7 lb 11 oz Measurements: heart Rate = 165bpm BPD = 38weeks 6days, 98 percentile HC = 39weeks 4days, 87 percentile AC = 38weeks 3days, 95 percentile FL = 38weeks 0 days, 79 percentile HC/AC is 0.99 FL/BPD is 0.78 FL/AC is 0.21 93 percentile Amniotic fluid index: 15.02cm, MVP 7.10 cm Qualitative AFV:2 Breathing movements: 2 Gross Body Movements: 2 Tone: 2 Biophysical profile score: 8 No obvious anomalies evident.Kidneys, stomach, bladder, profile, four-chamber heart, three-vessel cord appear normal. IMPRESSION: 1. Viable fetus in the cephalic presentation with a right lateral placenta grade 2. 2. The fluid is within normal limits with an amniotic fluid index 15.02 cm, MVP 7.10 cm. 3. Biophysical profile is 8/8 with good breathing movement and movement seen. 4. There has been good interval growth with the fetus currently 93rd percentile. The abdominal circumference is 2 weeks ahead. 5. Limited anatomical scan appears normal. Dictated by: Marck Jaramillo MD 09/23/2025 16:34 Marck Jaramillo MD in [facility] 09/23/2025 16:34
== END 2025-09-23 23:59 | disposition home or self-care (01) ==
LOC: RAD 14:36
PROVIDERS: PCP Family Medicine; Visit Provider Obstetrics & Gynecology
DX: O36.63X0 Maternal care for excessive fetal growth, third trimester, not applicable or unspecified (principal); O99.283 Endocrine, nutritional and metabolic diseases complicating pregnancy, third trimester; O99.213 Obesity complicating pregnancy, third trimester; E03.9 Hypothyroidism, unspecified; E66.9 Obesity, unspecified; Z3A.36 36 weeks gestation of pregnancy
CPT/HCPCS: 76816; 76819

== ENCOUNTER 2025-09-23 16:03 | Outpatient (CLI) | payer OTHER, SELFPAY ==
[2025-09-23 16:15] VITALS: BP 137/87; PULSE 117; RESP 18; TEMP 37.2; O2SAT 98; BMI 41.5
[2025-09-23 17:43] VITALS: BP 112/63
== END 2025-09-23 18:14 | disposition home or self-care (01) ==
LOC: OBOUT 16:04 → OB 16:05
PROVIDERS: PCP Family Medicine; Visit Provider Nurse Practitioner Obstetrics & Gynecology
DX: Z34.83 Encounter for supervision of other normal pregnancy, third trimester (principal); Z3A.36 36 weeks gestation of pregnancy
CPT/HCPCS: 99213

== ENCOUNTER 2025-09-25 12:56 | Outpatient (CLI) | payer OTHER, SELFPAY | END 2025-09-25 14:00 | disposition home or self-care (01) | LOC: OBOUT 12:57 → OB 12:59 | PROVIDERS: PCP Family Medicine; Visit Provider Obstetrics & Gynecology | DX: Z34.83 Encounter for supervision of other normal pregnancy, third trimester (principal); Z3A.36 36 weeks gestation of pregnancy | CPT/HCPCS: 99212 ==

== ENCOUNTER 2025-09-30 04:19 | Inpatient (IN) | payer OTHER, SELFPAY ==
[2025-09-24 08:47] VITALS: BMI 41.5
[2025-09-30] VITALS (10 sets, daily range): BP systolic 111–141; BP diastolic 67–89; PULSE 74–98; RESP 16–18; TEMP 36.4–36.8; O2SAT 95–99; BMI 42.2
--- NOTE | 2025-09-30 04:10 | EXP.OB.APHP ---
OB - H&P: HPI Antepartum History of Present Illness Chief complaint: Leakage of fluid History of present illness: Mrs Sheila Harris is a 25 yo at 37w4d who presented to L&D with complaint of leakage of fluid that woke her from sleep at 0300. She has been having contractions but intensity increased after gush of fluid. Baby is active. complicated by preeclampsia, maternal obesity, hypothyroidism and LGA baby. She is electing for primary secondary to LGA baby. Elective was scheduled for 0730 this morning secondary to preeclampsia. Upon arrival to L&D she was grossly ruptured and 6-7 cm dilated. She requested to proceed with elective . She also requested permanent sterilization at time of . Last growth ultrasound 09/23/25 EFW was 93 %ile. Previous growth ultrasound, 08/22/25, had baby measuring 97 %ile with BPD and HC measuring > 98 %ile. History of Present Criteria for establishing EDC:: LMP confirmed by 1st trimester US care: good care Ultrasounds: normal mid trimester US Obstetrical complications: preeclampsia Medical complications: other (hypothyroidism) Labs Blood type: O (+) positive Rubella: immune RPR/VDRL: nonreactive GBS status: unknown HBsAG: negative PFSH PFSH Disclaimer: The information contained in this section may have been updated after the patient was seen, as this information can be updated by other users. Medical History (Updated 09/30/25 @ 12:11 by Sheila nAdrade DO) Request for sterilization Spontaneous rupture of membranes 37 weeks gestation of Active labor Preeclampsia LGA (large for gestational age) fetus affecting management of mother UTI (urinary tract infection) Hematuria with proteinuria Hypothyroidism complicating Maternal obesity affecting , antepartum Encounter for IUD insertion Acute blood loss anemia ADHD Hypothyroidism Asthma Nelida's disease Anxiety Depression Allergies Surgical History S/P wisdom tooth extraction Family History Family/Other Cancer cervical-paternal side Mother Epilepsy Other Diabetes Social History (Updated 09/30/25 @ 10:45 by Elizabeth Marroquin RN) Smoking Status: Current every day smoker tobacco type: e-cigarettes smoking status start date: vape alcohol intake: never substance use type: denies use current occupational status: unemployed Travel in the last 8 weeks?: None Have you lived/traveled outside US in past 30 days?: No Contact w/someone who lives/traveled outside US past 30 days?: No Exposure to someone with infectious disease in past 14 days?: No Do you have a fever (greater than 100.4 F or 38 C)?: No Have you tested positive for COVID-19?: No Exposed to someone with COVID-19 in past 14 days?: No Do you have a sore throat?: No Do you have a cough?: No Do you have any weakness?: No Are you experiencing any nausea/vomitting?: No Do you have any diarrhea?: No Are you experiencing any unusual bleeding?: No Do you have any muscle aches/pain?: No Do you have any abdominal pain?: No Are you experiencing loss of taste or smell?: No Other Medical History Have you received the Flu Vaccine for this season: No Have you received the Pneumonia Vaccine: No Review of Systems Review of Systems Review of systems:: pertinent systems reviewed and negative unless documented below *Genitourinary Comments: + leakage of fluid, contractions Meds Home Medications and Allergies Home Medications ?Medication ?Instructions ?Recorded ?Confirmed ?Type fluoxetine 60 mg tablet 60 mg PO DAILY #30 tabs 08/08/25 09/30/25 Rx levothyroxine 100 mcg tablet 100 mcg PO DAILY #30 tabs 09/08/25 09/30/25 Rx (Synthroid) cyclobenzaprine 5 mg tablet 5 mg PO BIDP PRN muscle spasm 09/30/25 09/30/25 History montelukast 10 mg tablet 10 mg PO HS 09/30/25 09/30/25 History promethazine 12.5 mg tablet 12.5 mg PO Q6HP PRN vomiting 09/30/25 09/30/25 History New Prescriptions to Start Prescriptions: Allergies Allergy/AdvReac Type Severity Reaction Status Date / Time COVID-19 vaccine, Allergy Severe Anaphylaxis Verified 09/23/25 15:29 recombinant (Nova prochlorperazine (From Allergy Severe Other Verified 09/23/25 15:29 Compazine) influenza A (H5N1) virus AdvReac Severe Other Verified 09/23/25 15:29 vaccine mo ondansetron (From Zofran) AdvReac Nausea Verified 09/23/25 15:29 OB - H&P: Exam Constitutional mild distress, obese and cooperative Routine HEENT Exam Head: Present normocephalic and atraumatic Eye: Absent conjunctivae pink ENT: Present mucous membranes moist Routine Neck Exam Present full ROM Routine Respiratory Exam Present CTA bilaterally and normal respiratory effort Routine Cardiovascular Exam Present RRR Routine Abdominal Exam Present soft (Gravid); Absent tenderness Routine Rectal Exam Patient deferred: visual exam Routine Exam External: Present normal urethra appearance; Absent erythema, tenderness, lesions, lacerations, vulvar erythema or vulvar tenderness Routine Extremities Exam Present full ROM; Absent edema or calf tenderness Routine Neurological Exam Present alert, moving all extremities and normal speech Routine Psychiatric Exam Present normal affect and cooperative Detailed Labor and Delivery Exam Dilation (cm): 7 Effacement (%): 80 Cervix position: mid station: -2 Consistency: soft Membranes: ruptured Amniotic fluid: clear Baseline heart rate: 150 monitor accelerations: Absent monitor decelerations: None penitentiary variability: Average (6-10) Contraction frequency (min): 2 OB - A/P Antepartum (1) Active labor: Status: Acute (2) Spontaneous rupture of membranes: Status: Acute (3) 37 weeks gestation of : Status: Acute (4) Preeclampsia: Status: Acute (5) LGA (large for gestational age) fetus affecting management of mother: Status: Acute (6) Hypothyroidism complicating : Status: Acute (7) Maternal obesity affecting , antepartum: Status: Acute (8) Request for sterilization: Status: Acute Additional Plan Additional Information:: Admit to [facility] for active labor. She requests elective primary . Reviewed risks, benefits, alternatives, expectations and possible complications of surgery. All questions addressed and answered. She voiced understanding of risks and possible complications. Consent form signed Admit labs and [facility] [place] labs ordered Proceed to OR for elective primary with bilateral salpingectomy
[2025-09-30 04:35] LABS: Hematocrit 30.0 % (37.0-47.0); Hemoglobin 9.6 g/dL (12.2-16.2); Immature Granulocytes % 1.6 %; Mean Corpuscular HGB Conc 32.0 g/dL (31.8-35.4); Mean Corpuscular Hemoglobin 25.7 pg (27.0-31.2); Mean Corpuscular Volume 80.4 fl (81-99); Nucleated Red Blood Cells % 0.2 %; Platelet Count 175 K/mm3 (142-424); Red Blood Count 3.73 M/mm3 (4.20-5.40); Red Cell Distribution Width-SD 41.2 fL; White Blood Count 8.1 K/mm3 (4.8-10.8)
[2025-09-30 04:40] LABS: Albumin Level 3.6 g/dl (3.5-5.0); Chloride 107 mmol/L (98-107); Potassium 4.3 mmoL/L (3.5-5.1); Sodium 136 mmol/L (136-145)
[2025-09-30 04:43] LABS: Alanine Aminotransferase 9 U/L (12-78); Albumin/Globulin Ratio 1.2 (1.1-1.8); Alkaline Phosphatase 254 U/L (38-126); Anion Gap 14.3 mEq/L (5-15); Aspartate Amino Transferase 15 U/L (14-36); Bilirubin,Total 0.5 mg/dl (0.2-1.3); Blood Urea Nitrogen 13 mg/dl (7-17); Carbon Dioxide 19 mmol/L (22.0-30.0); Creatinine Clearance Estimated 92 mL/min (50-200); Creatinine,Serum 0.80 mg/dl (0.52-1.04); Estimated Glomerular Filt Rate 87 ml/min (>60); GFR (African American) 105 ML/MIN (>60); Globulin 3.0 g/dL (1.3-3.2); Total Protein,Serum 6.6 g/dl (6.3-8.2)
[2025-09-30 04:44] LABS: Calcium 8.7 mg/dl (8.4-10.2); Glucose 110 mg/dl (74-100)
--- NOTE | 2025-09-30 06:02 | SUR.OPER ---
0600- irrigated bladder with 60ml formula per
--- NOTE | 2025-09-30 06:13 | SUR.PREOP ---
0425- Patient arrived in OR on stretcher per OB staff. OR staff awaiting in OR with Dr. Andrade.
--- NOTE | 2025-09-30 07:16 | XR_ITS ---
FINAL REPORT CLINICAL HISTORY: .possible ureter clipped during surgery COMPARISON: None FINDINGS: SINGLE VIEW ABDOMEN A single view of the abdomen was obtained. There is a nonobstructive bowel gas pattern. There are no abnormally dilated loops of small bowel. No abnormal calcifications are identified. The exam is underpenetrated. The distal ureters are not well-seen. There is no evidence of hydronephrosis, and the proximal ureters appear unremarkable in appearance. IMPRESSION: Extremely limited exam secondary to underpenetration. No evidence of hydronephrosis or extravasation is identified. However, CT would be much more sensitive if clinically indicated. Reviewed, Interpreted and Dictated by Thad Viveros MD Transcribed by Sandy Major Authenticated and [facility]
--- NOTE | 2025-09-30 07:37 | HMH.PHAINT1 ---
Pharmacy Intervention Comments: MEDICATION RECONCILIATION COMPLETED ON PATIENT USING EXTERNAL FILL HISTORY FROM PHARMACY. -ASHA RAM, TIFFANIED
--- NOTE | 2025-09-30 08:32 | P.PNANES_ITS ---
[facility] Disclaimer: The information contained in this section may have been updated after the patient was seen, as this information can be updated by other users. Medical History Preeclampsia LGA (large for gestational age) fetus affecting management of mother UTI (urinary tract infection) Hematuria with proteinuria Hypothyroidism complicating Maternal obesity affecting , antepartum Encounter for IUD insertion Kyleena IUD inserted 05/08/24 Acute blood loss anemia ADHD Hypothyroidism Asthma Nelida's disease Anxiety Depression Allergies Surgical History S/P wisdom tooth extraction Family History Family/Other Cancer cervical-paternal side Mother Epilepsy Other Diabetes Social History Smoking Status: Current every day smoker tobacco type: e-cigarettes smoking status start date: vape alcohol intake: never substance use type: denies use current occupational status: unemployed Travel in the last 8 weeks?: None Have you lived/traveled outside US in past 30 days?: No Contact w/someone who lives/traveled outside US past 30 days?: No Exposure to someone with infectious disease in past 14 days?: No Do you have a fever (greater than 100.4 F or 38 C)?: No Have you tested positive for COVID-19?: No Exposed to someone with COVID-19 in past 14 days?: No Do you have a sore throat?: No Do you have a cough?: No Do you have any weakness?: No Do you have any diarrhea?: No Are you experiencing any unusual bleeding?: No Do you have any muscle aches/pain?: No Do you have any abdominal pain?: No Are you experiencing loss of taste or smell?: No [facility] Anesthesia Checklist Patient Identification Patient Identification: Verbal (Name & ) Structural Data Admitted From: Inpatient Planned Operative Procedure/s: c/section Consent for Planned Operative Procedure(s) Verified: Yes Additional verifications Anesthesia Reactions: No Airway Assessment Mallampati Score:: Class II C-Spine Mobility Assessed: Yes TMJ Mobility Assessed: Yes Dentition: Good Dentition Neurological Assessment Level of Consciousness: Awake, Alert and Appropriate Anesthesia Plan Anesthesia Risk discussed: Yes Anesthesia Plan: Verified ASA Class: II Anesthesia Type: Spinal Preoperative Comments Pre-Operative Comments: emergency
--- NOTE | 2025-09-30 08:33 | P.PNANES_ITS ---
[facility] Anesthesia Record Part I Anesthesia Record I Intake, IV Amount: 3,400 Hydration: Adequate Estimated blood loss (mL): 600 Urine output (mL): 600 Blood Pressure: 137/86 SaO2: 95 Pulse Rate: 91 Airway Patency: Patent Respiratory Rate: 16 Temperature: 97.5 F Patient is:: Awake and Stable Stable to PACU at:: 08:25
[2025-09-30] MEDS: MORPHINE 2MG/ML SYRINGE 2 MG IV ×2 (08:50→09:00)
[2025-09-30] MEDS: KETOROLAC 30MG/ML VIAL 30 MG IV ×3 (09:09→20:05)
--- NOTE | 2025-09-30 09:22 | SUR.OPER ---
0640- irrigated bladder with 150 sterile formula. 0655- Radiology in room tho set up for KUB. 0715- Radiology back in room to do KUB.
--- NOTE | 2025-09-30 09:28 | CT_ITS ---
FINAL REPORT CLINICAL HISTORY: abdominal surgery FINDINGS: The lung bases are clear. There is mild hepatosplenomegaly. The adrenals are normal. The pancreas is unremarkable. The kidneys enhance appropriately. Contrast is seen in the bilateral renal collecting systems and within the decompressed urinary bladder. Precontrast images demonstrate no nephrolithiasis. There is a surgical drain in the inferior pelvis. There is an overlying row of skin rosa m. There is subcutaneous emphysema likely related to recent surgery. Uterus is enlarged consistent with recent . There is a small amount of gas/fluid in the endometrial cavity likely related to recent surgery. IMPRESSION: Diffusely enlarged uterus with gas/fluid in the endometrial canal likely related to recent surgery. Surgical drain seen at the floor of the pelvis. Reviewed, Interpreted and Dictated by Thad Viveros MD Transcribed by Allison Amaro Authenticated and [facility]
[2025-09-30] MEDS: OXYTOCIN/RINGERS LACTATE 30 UNITS/500 ML BAG 40 UNITS IV (09:45)
--- NOTE | 2025-09-30 09:48 | P.OP_ITS ---
Date of procedure: 09/30/25 Pre-op Diagnosis:: 1. Active labor 2. Spontaneous rupture of membranes 3. IUP at 37w4d 4. Preeclampsia 5. LGA baby 6. Hypothyroidism in 7. Maternal obesity 6. Request for permanent sterilization Post-op Diagnosis:: 1. Active labor 2. Spontaneous rupture of membranes 3. IUP at 37w4d 4. Preeclampsia 5. LGA baby 6. Hypothyroidism in 7. Maternal obesity 6. Request for permanent sterilization Procedure performed:: 1. Elective primary low transverse Section 2. Bilateral salpingectomy Surgeon:: Sheila Andrade DO Investigation Manager(s):: MD Marck Maria MD CATALYST UNIT OPERATOR:: Nik Talley Anesthesia: GETA and spinal Estimated blood loss (mL): 600 Clinical Note:: Mrs Sheila Harris is a 25 yo at 37w4d who presented to L&D with complaint of leakage of fluid that woke her from sleep at 0300. She has been having contractions but intensity increased after gush of fluid. Baby is active. complicated by preeclampsia, maternal obesity, hypothyroidism and LGA baby. She is electing for primary secondary to LGA baby. Elective c- section was scheduled for 0730 this morning secondary to preeclampsia. Upon arrival to L&D she was grossly ruptured and 6-7 cm dilated. She requested to proceed with elective . She also requested permanent sterilization at time of . Last growth ultrasound 09/23/25 EFW was 93 %ile. Previous growth ultrasound, 08/22/25, had baby measuring 97 %ile with BPD and HC measuring > 98 %ile. Operative findings:: 1. Live male baby, Francesco, weighing 8 lb 9 oz, Apgars 8 (1 min), 9 (5 min) 2. Grossly normal appearing uterus, bilateral fallopian tubes and ovaries 3. Upon initial closure of fascia watery drainage was noted to be oozing through fascial incision. Abdomen was reentered down to uterus. No obvious signs of bleeding. Small amount of oozing noted. Posterior cul-de-sac and pelvis wiped with clean laparotomy sponge. Watery fluid with slight straw color was noted. She continued to have welling up of serosangiuneous fluid between bladder and uterus. Bladder was back filled with sterile milk on two separate occasions. Bladder filled appropriately and noted to be intact with no spillage of sterile milk into the abdomen. Close inspection did not find any pumping blood vessels or source of large amount of watery fluid. Operative note:: The risks, benefits and alternatives of the procedure were reviewed with the patient. Informed consent was obtained. Patient was taken to the operating room where spinal anesthesia was placed. The patient received 2 grams of Ancef preoperatively. Patient was placed in dorsal supine position with a leftward tilt. SCDs in place. Carias catheter was placed and was draining clear urine prior to the start of the procedure. heart tones were obtained. Vagina was prepped with Betadine swabs x 3. Patient was then prepped and draped in normal sterile fashion. Allis clamp test was performed to ensure adequate anesthesia. A Pfannenstiel skin incision was made 2 cm above pubic symphysis. This was carried through to underlying layer of fascia. Fascia was incised in midline, extended laterally with [place] scissors. Superior aspect of fascial incision was grasped with two Miguel clamps, elevated up, and rectus muscle dissected off bluntly and sharply with [place] scissors. The retcus muscle was then in the midline and the peritoneum was entered bluntly with a digit. Peritoneal incision was then extended superiorly and inferiorly with good visualization of the bladder. Jose retractor was inserted. The lower uterine segment was incised in a transverse fashion. Clear amniotic fluid was noted. Head was delivered without difficulty. Remainder of body was delivered without difficulty. Mouth and nares were bulb suctioned. Spontaneous cry was noted. Delayed cord clamping was performed for 60 seconds. The umbilical cord was clamped and cut. The was handed to awaiting pediatric staff in stable condition. Dr. Arrieta was present. Apgars were 8(1 min), 9(5 min). Cord blood was obtained. Gentle traction on the umbilical cord and uterine fundal massage delivered the placenta. Placenta was intact. Placenta will be sent to pathology for review. Uterus was cleared of all clots and debris with a moist laparotomy sponge. Corners of the uterine incision were grasped with Allis clamps. The uterine incision was reapproximated with # 1 Vicryl suture in a running, locked stitch. Second layer of the same stitch was used to imbricate the incision. Hemostasis was noted and Dr. Gates was permitted to leave the OR. Baby and Sheila's were escorted back to OB floor by nursing staff. Baby was doing well and in stable condition. Vesicouterine peritoneum was reapproximated in a running locked stitch with 0- Vicryl suture. Hemostasis was noted. Attention was then turned to the left fallopian tube, which was grasped with a Alison clamp. Enseal device was used to clamp, ligate and transect the right mesosalpinx and fallopian tube at uterine cornua,. Same procedure was carried out on the contralateral side. Specimens were handed off of sterile field and will be sent to pathology for review. Posterior cul-de-sac was cleaned with moist laparotomy sponge. Gutters cleared of all clots and debris with a moist laparotomy sponge. Reinspection of the lower uterine segment demonstrated hemostasis. At this point all instruments and sponges were removed from the pelvis.? The peritoneum was grasped with Debbie clamps x 3. The peritoneum was reapproximated with 0 Vicryl suture in a running stitch. The corners of the fascia were grasped with Miguel clamps, and the fascia was reapproximated with two # 1 Vicryl suture overlapped to the right of midline. At this point serosangiuneous fluid was noted oozing through closed fascia. Suture was cut and fascial incision was reopened. Inspection revealed serosanguineous fluid oozing from closed peritoneum. Suture reapproximating peritoneum was cut and peritoneal cavity was reentered. Inspection of reapproximated vesicouterine peritoneum revealed large amount of serosanguineous fluid. Fluid was removed with clean laparotomy sponge. No obvious signs of bleeding were found. Vesicouterine peritoneum was hemostatic. Unsure if fluid was coming from upper abdomen and coming down the gutters and in the pelvic cul-de-sac or if the bladder was injured. Bladder was back filled with sterile milk. Bladder appropriately distended and was intact with no spilling of sterile milk. After wiping excess water fluid from pelvis and gutters the vesicouterine peritoneum appeared appropriate without any further serosanguineous fluid. Surgicel powder and gel foam was placed over vesicouterine peritoneum for possible small venous oozing. Hemostasis was noted. Peritoneum was reapproximated a second time with 0 Vicryl suture in a running stitch. Again, reinspection of the peritoneum, muscle and fascia appeared normal without any further welling up of watery fluid/serosanguinous fluid. Fascia was reapproximated a second time with two # 1 Vicryl suture overlapped to the right of midline. Once again, inspection of closed fascia demonstrated brown watery fluid oozing up through closed fascial incision. Suture was cut and fascia was reopened a second time. Inspection revealed brown watery fluid oozing from closed peritoneum. Brown watery fluid was most likely from surgicel powder the was applied. Suture reapproximating peritoneum was cut and peritoneal cavity was reentered. Inspection of reapproximated vesicouterine peritoneum revealed large amount of brown watery fluid. Fluid was removed with clean laparotomy sponge. Suture reapproximating vesicouterine peritoneum was cut and vesicouterine peritoneum was opened. No obvious signs of bleeding were found. Bladder was back filled a second time with sterile milk. Bladder appropriately distended and was intact with no spilling of sterile milk. Bladder was drained and urine output was noted to be adequate. No source of watery fluid could be identified. At this time patient was placed under general anesthesia. Dr Jaramillo was called in to assist. Careful exploration of pelvic cavity was performed and no obvious signs of bleeding or oozing were found. IV Contrast was given during exploration for source of watery fluid. KUB was performed intraoperatively. KUB was extremely limited secondary to underpenetration. No evidence of contrast extravasation seen. Distal ureters were not well seen. Fluid in pelvis (posterior cul-de-sac and gutters) and abdomen was removed with clean laparotomy sponge. Pale straw colored fluid noted on clean lap sponge with fluid in posterior cul-de-sac and upper abdomen was removed. Reinspection of lower uterine segment and under bladder demonstrated small amount of serosanguineous fluid welling up but again no obvious source of fluid/bleeding. Much smaller amount of watery fluid noted after cleaning the pelvis and behind the uterus with clean lap sponge. ZACK drain was inserted into the peritoneum and then under the fascia and through the skin above Pfannenstiel incision left of midline. Peritoneum was loosely reapproximated with 0 Vicryl Suture. Fascia was reapproximated a third time with two # 1 Vicryl suture overlapped to the right of midline. Minimal watery fluid noted with closure. Subcutaneous tissue was irrigated with clear return of fluids. The subcutaneous tissue was reapproximated with 3-0 Vicryl. The skin was reapproximated with metal rosa m. ZACK drain catheter was anchored to the skin with silk suture. Telfa was placed over closed Pfannenstiel skin incision. At the end of the procedure, the uterus was firm with minimal vaginal bleeding. Instrument, sponges and needle counts were correct x 2. Mom was transferred to recovery in stable condition . Condition: stable Disposition: floor Specimens:: 1. Placenta and umbilical cord 2. Bilateral fallopian tubes Complications:: none
[2025-09-30 10:04] LABS: Chloride 104 mmol/L (98-107)
[2025-09-30 10:05] LABS: Albumin Level 2.8 g/dl (3.5-5.0); Potassium 4.0 mmoL/L (3.5-5.1); Sodium 134 mmol/L (136-145)
[2025-09-30 10:07] LABS: Activated Partial Thrombo Time 29.7 seconds (22.8-30.6); Anion Gap 14.0 mEq/L (5-15); Blood Urea Nitrogen 12 mg/dl (7-17); Carbon Dioxide 20 mmol/L (22.0-30.0); Creatinine Clearance Estimated 105 mL/min (50-200); Creatinine,Serum 0.70 mg/dl (0.52-1.04); Estimated Glomerular Filt Rate 101 ml/min (>60); Fibrinogen 494 mg/dL (229.9-363.5); GFR (African American) 122 ML/MIN (>60); INR 0.98 (0.9-1.1); Prothrombin Time 10.9 seconds (10.1-12.5)
[2025-09-30 10:08] LABS: Alanine Aminotransferase 10 U/L (12-78); Albumin/Globulin Ratio 1.0 (1.1-1.8); Alkaline Phosphatase 198 U/L (38-126); Aspartate Amino Transferase 18 U/L (14-36); Bilirubin,Total 0.4 mg/dl (0.2-1.3); Calcium 8.4 mg/dl (8.4-10.2); Globulin 2.7 g/dL (1.3-3.2); Glucose 145 mg/dl (74-100); Total Protein,Serum 5.5 g/dl (6.3-8.2)
--- NOTE | 2025-09-30 10:22 | EXP.ANES.II ---
[facility] Anesthesia Record Part II Anesthesia Record Part II Discharge Time: 09:05 Destination: Obstetric PACU nurse assessment reviewed?: Yes Patient Condition:: Good Anesthesia Complications:: None Swallowing reflex intact?: Yes Airway Patency: Patent Cyanosis?: No Blood Pressure: 141/78 SaO2: 97 Respiratory Rate: 18 Pulse Rate: 74 Temperature: 97.8 F Mental Status: Alert & Oriented Pain level:: 4 Nausea and/or vomitting:: None Intake, IV Amount: 0 Hydration: Adequate
[2025-09-30] MEDS: LACTATED RINGERS 1000ML 1,000 ML 125 ML IV (10:24)
[2025-09-30] MEDS: HYDROMORPHONE 2MG/ML SYRINGE 2 MG IV ×2 (10:25→21:47)
[2025-09-30] MEDS: ACETAMINOPHEN 500MG TAB 1000 MG PO ×3 (10:25→22:54)
[2025-09-30] MEDS: ONDANSETRON 4MG/2ML VIAL 4 MG IV (11:00)
[2025-09-30] MEDS: SODIUM CHLORIDE 0.9% 10ML SYR (RAD ONLY) 10 ML IV (11:55)
[2025-09-30] MEDS: IOPAMIDOL-370 (76%);100ML BOTTLE 75 ML IV (11:55)
[2025-09-30] MEDS: AZITHROMYCIN 500 MG in 0.9 % SODIUM CHLORIDE 250 ML 250 MG IV (12:46)
[2025-09-30 13:38] LABS: Microscopic,Cath URINE MICROSCOPIC (MICROSCOPIC)
[2025-09-30 14:01] LABS: Appearance,Urine/Cath CLEAR (Clear); Blood, Urine/Cath 1+ (Negative); Color,Urine/Cath YELLOW (Yellow); Glucose,Urine/Cath (UA) Negative (Negative); Ketones,Urine/Cath TRACE (Negative); Leukocyte Esterase,Cath Negative (Negative); Nitrate,Cath Negative (Negative); PH,Urine/Cath 7.5 (5.0-8.5); Protein,Urine/Cath 3+ (Negative); Specific Gravity, Urine/Cath 1.020 (1.005-1.030); Urobilinogen,Cath 1.0 EU/dl (0.2)
[2025-09-30 14:11] LABS: Bilirubin,Cath 1+ (Negative)
[2025-09-30 15:06] LABS: Amorphous Sediment,Ur/Cath 1+ /lpf; Bacteria,Urine/Cath 1+ /lpf; Mucus,Urine/Cath 2+ /lpf; RBC,Urine/Cath 20-50 # /hpf (0-3)
[2025-09-30 15:30] LABS: RPR W/RFX Titers Nonreactive (Nonreactive)
[2025-09-30] MEDS: PRENATAL MULTIVITAMIN W/IRON 1 EACH PO (16:22)
[2025-09-30] MEDS: OXYCODONE 5MG IMMEDIATE RELEASE TABLET 5 MG PO (17:11)
[2025-09-30] MEDS: SENNA 8.6MG TABLET 8.6 MG PO (20:06)
[2025-09-30] MEDS: SIMETHICONE 80MG CHEWABLE TABLET 160 MG PO (20:06)
[2025-09-30] MEDS: MONTELUKAST SODIUM 10MG TAB 10 MG PO (20:47)
[2025-10-01] MEDS: OXYCODONE 5MG IMMEDIATE RELEASE TABLET 5 MG PO ×4 (01:19→15:39)
[2025-10-01] MEDS: KETOROLAC 30MG/ML VIAL 30 MG IV ×2 (02:04→08:33)
[2025-10-01] MEDS: ACETAMINOPHEN 500MG TAB 1000 MG PO ×4 (04:05→22:44)
[2025-10-01] MEDS: LEVOTHYROXINE 100MCG (0.1MG) TAB 100 MCG PO (05:39)
[2025-10-01 09:05] VITALS: BP 123/73; PULSE 100; RESP 18; TEMP 36.7; O2SAT 98
[2025-10-01] MEDS: SIMETHICONE 80MG CHEWABLE TABLET 160 MG PO ×2 (09:19→13:50)
[2025-10-01] MEDS: FLUOXETINE 20MG CAPSULE 60 MG PO (09:19)
[2025-10-01 09:22] LABS: Hematocrit 26.0 % (37.0-47.0); Hemoglobin 8.0 g/dL (12.2-16.2); Immature Granulocytes % 1.1 %; Mean Corpuscular HGB Conc 30.8 g/dL (31.8-35.4); Mean Corpuscular Hemoglobin 25.4 pg (27.0-31.2); Mean Corpuscular Volume 82.5 fl (81-99); Nucleated Red Blood Cells % 0 %; Platelet Count 151 K/mm3 (142-424); Red Blood Count 3.15 M/mm3 (4.20-5.40); Red Cell Distribution Width-SD 43.4 fL; White Blood Count 6.6 K/mm3 (4.8-10.8)
[2025-10-01 09:30] LABS: Alanine Aminotransferase 7 U/L (12-78); Albumin Level 2.7 g/dl (3.5-5.0); Albumin/Globulin Ratio 1.0 (1.1-1.8); Alkaline Phosphatase 171 U/L (38-126); Anion Gap 8.2 mEq/L (5-15); Aspartate Amino Transferase 23 U/L (14-36); Bilirubin,Total 0.4 mg/dl (0.2-1.3); Blood Urea Nitrogen 17 mg/dl (7-17); Calcium 8.6 mg/dl (8.4-10.2); Carbon Dioxide 20 mmol/L (22.0-30.0); Chloride 109 mmol/L (98-107); Creatinine Clearance Estimated 74 mL/min (50-200); Creatinine,Serum 1.00 mg/dl (0.52-1.04); Estimated Glomerular Filt Rate 67 ml/min (>60); GFR (African American) 81 ML/MIN (>60); Globulin 2.7 g/dL (1.3-3.2); Glucose 124 mg/dl (74-100); Potassium 4.2 mmoL/L (3.5-5.1); Sodium 133 mmol/L (136-145); Total Protein,Serum 5.4 g/dl (6.3-8.2)
[2025-10-01] MEDS: LACTATED RINGERS 1000ML 1,000 ML 999 ML IV (10:24)
[2025-10-01] MEDS: LACTATED RINGERS 1000ML 1,000 ML 70 ML IV (11:30)
--- NOTE | 2025-10-01 13:16 | EXP.ACUTE.PN ---
Subjective *Date: 10/01/25 *Time: 15:46 Interval history: POD # 1 s/p elective PLTCS and bilateral salpingectomy Feeling well. Pain controlled with medication. Breast and formula feeding. Lochia is appropriate. Chapa catheter in place with clear urine. Passing flatus. Tolerating regular diet. Denies fever/chills, chest pain and shortness of breath. No headaches, vision changes, lightheadedness/dizziness. No lower extremity swelling. Ambulating well ad emeli. Medical Exam Vital signs and Labs for Last 24 Hours: Vital Signs Temp Pulse Resp BP Pulse Ox O2 Del Method 10/01/25 09:05 98.0 F 100 H 18 123/73 98 Room Air 09/30/25 20:46 98.1 F 88 17 111/67 98 Room Air Intake and Output 09/30/25 10/01/25 10/01/25 23:59 07:59 15:59 Intake Total 1050 / 8300 120 / 1120 1000 / 1120 Output Total 680 / 820 295 / 710 415 / 710 Balance 370 / 7480 -175 / 410 585 / 410 Intake: Intake, Oral Amount 120 / 120 Intake, Total IV Amount 1050 / 1500 1000 / 1000 Cefazolin Sodium 2 gm In 0.9 % 100 / 200 Sodium Chloride 100 ml @ 200 mls/hr IV Q8H [facility] Rx#:[id number] Lactated Ringers 1000ML 1,000 700 / 700 ml @ 70 mls/hr IV .[id number] [facility] Rx#:[id number] Lactated Ringers 1000ML 1,000 1000 / 1000 ml @ 999 mls/hr IV .[id number] [facility] Rx#:[id number] Oxytocin/Ringers Lactate 30 250 / 250 units In 500 ml @ 40 mls/hr IV .[id number] [facility] Rx#:[id number] Output: Output, Urine Amount (Catheter) 500 / 500 250 / 660 410 / 660 Chapa 500 / 500 250 / 660 410 / 660 Output, Drainage Amount 180 / 320 45 / 50 5 / 50 Medial Abdomen 180 / 320 45 / 50 5 / 50 Laboratory Results - last 24 hr 09/30/25 03:59: RPR w/Rflx to Titer Nonreactive 09/30/25 04:40: Urine Color Yellow, Urine Appearance Clear, Urine pH 7.5, Ur Specific [place] 1.020, Urine Protein 3+, Urine Glucose (UA) Negative, Urine Ketones Trace, Urine Blood 1+, Urine Nitrate Negative, Urine Bilirubin 1+ A, Urine Urobilinogen 1.0, Ur Leukocyte Esterase Negative, Urine RBC 20-50, Urine WBC 10-20 A, Ur Squamous Epith Cells 10-20, Urine Bacteria 1+, Urine Creatinine 251, Urine Total Protein 594.0 H 10/01/25 08:40: WBC 6.6, RBC 3.15 L, Hgb 8.0 L, Hct 26.0 L, MCV 82.5, MCH 25.4 L, MCHC 30.8 L, RDW 14.7, Plt Count 151, MPV 10.7 H, Neut % (Auto) 76.5, Lymph % (Auto) 16.8, [place] % (Auto) 4.8, Eos % (Auto) 0.6, Baso % (Auto) 0.2, Neut # (Auto) 5.1, Lymph # (Auto) 1.1, [place] # (Auto) 0.3, Eos # (Auto) 0.0, Baso # (Auto) 0.0, Sodium 133 L, Potassium 4.2, Chloride 109 H, Carbon Dioxide 20 L, Anion Gap 8.2, BUN 17 D, Creatinine 1.00 D, Estimated Creat Clear 74, Estimated GFR 67, Est GFR ( Amer) 81 D, Glucose 124 H, Calcium 8.6, Total Bilirubin 0.4, AST 23 D, ALT 7 L D, Alkaline Phosphatase 171 H, Total Protein 5.4 L, Albumin 2.7 L, Globulin 2.7, Albumin/Globulin Ratio 1.0 L I & O for Labs for Last 24 Hours: Intake & Output 09/28/25 09/29/25 09/30/25 10/01/25 23:59 23:59 23:59 23:59 Intake Total 8300 / 8300 1120 / 1120 Output Total 820 / 820 710 / 710 Balance 7480 / 7480 410 / 410 Weight 246 lb Head: Present atraumatic and normocephalic ENT: Present normal exam Neck: Present normal inspection Respiratory: Present CTA bilaterally and normal respiratory effort Cardiac: Present Reg Rate and Rhythm GI: Present soft, tenderness (appropriate tenderness to palpation) and normal bowel sounds; Absent distention or guarding Rectal (female): Present deferred (female): Present deferred Extremities: Present full ROM and edema; Absent calf tenderness Neuro: Present alert, awake and moves all extremities Assessment and Plan *Assessment and plan (1) Delivery by elective section: Status: Acute Category: Medical Code(s): O82 - Encounter for delivery without indication (2) Active labor: Status: Acute Category: Medical (3) Spontaneous rupture of membranes: Status: Acute Category: Medical (4) 37 weeks gestation of : Status: Acute Category: Medical Code(s): Z3A.37 - 37 weeks gestation of (5) Request for sterilization: Status: Acute Category: Medical Code(s): Z30.2 - Encounter for sterilization (6) Preeclampsia: Status: Acute Qualifiers: Trimester: third trimester Qualified Code(s): O14.93 - Unspecified pre-eclampsia, third trimester Category: Medical Code(s): O14.90 - Unspecified pre-eclampsia, unspecified trimester (7) Acute blood loss anemia: Status: Acute Category: Medical Code(s): D62 - Acute posthemorrhagic anemia Plan Continue routine care Encouraged ambulation as tolerated AM Creatinine increased slightly to 1.00. 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 She did not have IV fluids running and has not been drinking. Suspect bump in creatinine secondary to dehydration and possibly IV contrast yesterday. 1 Liter bolus given with continued monitoring of output and chapa in place. NSAIDs held. Urine ouput increased to about 150 ml/hour. Repeat CMP this afternoon demonstrated improvement in creatinine down to 0.90 Repeat CMP in the AM. 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 20 mL output over the past 6.5 hours. Will remove ZACK drain today
[2025-10-01 15:27] LABS: Alanine Aminotransferase 8 U/L (12-78); Albumin Level 2.7 g/dl (3.5-5.0); Albumin/Globulin Ratio 1.1 (1.1-1.8); Alkaline Phosphatase 156 U/L (38-126); Anion Gap 12.3 mEq/L (5-15); Aspartate Amino Transferase 19 U/L (14-36); Bilirubin,Total 0.2 mg/dl (0.2-1.3); Blood Urea Nitrogen 17 mg/dl (7-17); Calcium 8.3 mg/dl (8.4-10.2); Carbon Dioxide 20 mmol/L (22.0-30.0); Chloride 106 mmol/L (98-107); Creatinine Clearance Estimated 82 mL/min (50-200); Creatinine,Serum 0.90 mg/dl (0.52-1.04); Estimated Glomerular Filt Rate 76 ml/min (>60); GFR (African American) 92 ML/MIN (>60); Globulin 2.4 g/dL (1.3-3.2); Glucose 108 mg/dl (74-100); Potassium 4.3 mmoL/L (3.5-5.1); Sodium 134 mmol/L (136-145); Total Protein,Serum 5.1 g/dl (6.3-8.2)
[2025-10-01] MEDS: IRON SUCROSE COMPLEX 200 MG in 0.9 % SODIUM CHLORIDE 100 ML 220 MG IV (16:12)
[2025-10-01] MEDS: SENNA 8.6MG TABLET 8.6 MG PO (20:13)
[2025-10-01] MEDS: OXYCODONE 5MG IMMEDIATE RELEASE TABLET 10 MG PO (20:13)
[2025-10-01] MEDS: MONTELUKAST SODIUM 10MG TAB 10 MG PO (22:44)
[2025-10-01] MEDS: PRENATAL MULTIVITAMIN W/IRON 1 EACH PO (22:44)
[2025-10-02] MEDS: OXYCODONE 5MG IMMEDIATE RELEASE TABLET 10 MG PO ×3 (00:29→20:34)
[2025-10-02] MEDS: SIMETHICONE 80MG CHEWABLE TABLET 160 MG PO ×2 (00:32→20:43)
[2025-10-02] MEDS: ACETAMINOPHEN 500MG TAB 1000 MG PO ×4 (05:07→23:34)
[2025-10-02] MEDS: OXYCODONE 5MG IMMEDIATE RELEASE TABLET 5 MG PO (05:08)
[2025-10-02] MEDS: LEVOTHYROXINE 100MCG (0.1MG) TAB 100 MCG PO (07:10)
[2025-10-02 08:02] LABS: Chloride 106 mmol/L (98-107)
[2025-10-02 08:03] LABS: Albumin Level 2.7 g/dl (3.5-5.0); Potassium 3.8 mmoL/L (3.5-5.1); Sodium 137 mmol/L (136-145)
[2025-10-02 08:05] LABS: Blood Urea Nitrogen 11 mg/dl (7-17); Creatinine Clearance Estimated 67 mL/min (50-200); Creatinine,Serum 1.10 mg/dl (0.52-1.04); Estimated Glomerular Filt Rate 60 ml/min (>60); GFR (African American) 73 ML/MIN (>60)
[2025-10-02 08:06] LABS: Alanine Aminotransferase 7 U/L (12-78); Albumin/Globulin Ratio 1.0 (1.1-1.8); Alkaline Phosphatase 141 U/L (38-126); Anion Gap 11.8 mEq/L (5-15); Aspartate Amino Transferase 20 U/L (14-36); Bilirubin,Total 0.2 mg/dl (0.2-1.3); Calcium 8.1 mg/dl (8.4-10.2); Carbon Dioxide 23 mmol/L (22.0-30.0); Globulin 2.7 g/dL (1.3-3.2); Glucose 93 mg/dl (74-100); Total Protein,Serum 5.4 g/dl (6.3-8.2)
--- NOTE | 2025-10-02 08:44 | P.PN_ITS ---
Subjective *Date: 10/02/25 *Time: 08:44 Interval history: POD # 2 s/p elective PLTCS and bilateral salpingectomy Feeling well. Pain controlled with medication. Breast and formula feeding. Lochia is appropriate. Voiding without difficulty and passing flatus. Tolerating regular diet. Denies fever/chills, chest pain and shortness of breath. No headaches, vision changes, lightheadedness/dizziness. Admits to mild lower extremity swelling. No calf pain. Ambulating well ad emeli. Medical Exam Vital signs and Labs for Last 24 Hours: Vital Signs Temp Pulse Resp BP Pulse Ox O2 Del Method 10/01/25 09:05 98.0 F 100 H 18 123/73 98 Room Air Intake and Output 10/01/25 10/02/25 10/02/25 23:59 07:59 15:59 Intake Total 110 / 1398 Output Total 1120 / 2410 500 / 500 Balance -1010 / -1012 -500 / -500 Intake: Intake, Total IV Amount 110 / 1278 Iron Sucrose Complex 200 mg In 110 / 110 0.9 % Sodium Chloride 100 ml @ 220 mls/hr IV ONCE ONE Rx#: [id number] Output: Output, Urine Amount 600 / 600 500 / 500 Output, Urine Amount (Catheter) 500 / 1740 Carias 500 / 1740 Output, Drainage Amount Medial Abdomen Other: Number of Voids 1 Laboratory Results - last 24 hr 10/01/25 08:40: WBC 6.6, RBC 3.15 L, Hgb 8.0 L, Hct 26.0 L, MCV 82.5, MCH 25.4 L , MCHC 30.8 L, RDW 14.7, Plt Count 151, MPV 10.7 H, Neut % (Auto) 76.5, Lymph % (Auto) 16.8, [place] % (Auto) 4.8, Eos % (Auto) 0.6, Baso % (Auto) 0.2, Neut # (Auto) 5.1, Lymph # (Auto) 1.1, [place] # (Auto) 0.3, Eos # (Auto) 0.0, Baso # (Auto) 0.0, Sodium 133 L, Potassium 4.2, Chloride 109 H, Carbon Dioxide 20 L, Anion Gap 8.2, BUN 17 D, Creatinine 1.00 D, Estimated Creat Clear 74, Estimated GFR 67, Est GFR ( Amer) 81 D, Glucose 124 H, Calcium 8.6, Total Bilirubin 0.4, AST 23 D, ALT 7 L D, Alkaline Phosphatase 171 H, Total Protein 5.4 L, Albumin 2.7 L, Globulin 2.7, Albumin/Globulin Ratio 1.0 L 10/01/25 15:00: Sodium 134 L, Potassium 4.3, Chloride 106, Carbon Dioxide 20 L, Anion Gap 12.3, BUN 17, Creatinine 0.90, Estimated Creat Clear 82, Estimated GFR 76, Est GFR ( Amer) 92, Glucose 108 H, Calcium 8.3 L, Total Bilirubin 0.2, AST 19, ALT 8 L, Alkaline Phosphatase 156 H, Total Protein 5.1 L, Albumin 2.7 L, Globulin 2.4, Albumin/Globulin Ratio 1.1 10/02/25 07:45: Sodium 137, Potassium 3.8, Chloride 106, Carbon Dioxide 23, Anion Gap 11.8, BUN 11 D, Creatinine 1.10 H D, Estimated Creat Clear 67, Estimated GFR 60, Est GFR ( Amer) 73 D, Glucose 93, Calcium 8.1 L, Total Bilirubin 0.2, AST 20, ALT 7 L, Alkaline Phosphatase 141 H, Total Protein 5.4 L, Albumin 2.7 L, Globulin 2.7, Albumin/Globulin Ratio 1.0 L I & O for Labs for Last 24 Hours: Intake & Output 09/29/25 09/30/25 10/01/25 10/02/25 23:59 23:59 23:59 23:59 Intake Total 8300 / 8300 1398 / 1398 Output Total 820 / 820 2410 / 2410 500 / 500 Balance 7480 / 7480 -1012 / -1012 -500 / -500 Weight 246 lb Constitutional: Present no acute distress, obese and cooperative Head: Present atraumatic and normocephalic ENT: Present normal exam Neck: Present full ROM Respiratory: Present CTA bilaterally and normal respiratory effort Cardiac: Present Reg Rate and Rhythm GI: Present soft and normal bowel sounds; Absent distention, tenderness or guarding Rectal (female): Present deferred (female): Present deferred Extremities: Present full ROM and edema (+1 bilateral lower extremity edema); Absent calf tenderness Neuro: Present alert, awake and moves all extremities Assessment and Plan *Assessment and plan (1) Delivery by elective section: Status: Acute Category: Medical Code(s): O82 - Encounter for delivery without indication (2) Active labor: Status: Acute Category: Medical (3) Spontaneous rupture of membranes: Status: Acute Category: Medical (4) 37 weeks gestation of : Status: Acute Category: Medical Code(s): Z3A.37 - 37 weeks gestation of (5) Preeclampsia: Status: Acute Qualifiers: Trimester: third trimester Qualified Code(s): O14.93 - Unspecified pre- eclampsia, third trimester Category: Medical Code(s): O14.90 - Unspecified pre-eclampsia, unspecified trimester (6) Hypothyroidism complicating : Status: Acute Qualifiers: Trimester: third trimester Qualified Code(s): O99.283 - Endocrine, nutritional and metabolic diseases complicating , third trimester; E03.9 - Hypothyroidism, unspecified Category: Medical Code(s): O99.280 - Endocrine, nutritional and metabolic diseases complicating , unspecified trimester; E03.9 - Hypothyroidism, unspecified (7) Maternal obesity affecting , antepartum: Status: Acute Qualifiers: Obesity type affecting : unspecified obesity Qualified Code(s): O99.210 - Obesity complicating , unspecified trimester Category: Medical Code(s): O99.210 - Obesity complicating , unspecified trimester (8) Acute blood loss anemia: Status: Acute Category: Medical Code(s): D62 - Acute posthemorrhagic anemia (9) Depression: Status: Acute Qualifiers: Depression Type: unspecified Qualified Code(s): F32.A - Depression, unspecified Category: Medical Code(s): F32.A - Depression, unspecified (10) anxiety: Status: Acute Category: Medical Code(s): O99.345 - Other mental disorders complicating the puerperium; F41.8 - Other specified anxiety disorders (11) DUNCAN (acute kidney injury): Status: Acute Category: Medical Code(s): N17.9 - Acute kidney failure, unspecified Plan Continue routine care. She admits she feels well Encouraged ambulation as tolerated EPDS this morning was 10. She admits to some anxiety. She is currently taking fluoxetine 60 mg PO daily. Discussed adding buspirone DUNCAN -- AM Creatinine increased to 1.10 (1.00 and 0.90 yesterday) -- Adequate urine output -- Continue encouraging increased PO intake -- NSAIDs held -- Continue to measure urine output -- repeat CMP in the AM
[2025-10-02 09:04] VITALS: BP 131/73; PULSE 101; RESP 18; TEMP 36.9; O2SAT 96
[2025-10-02] MEDS: FLUOXETINE 20MG CAPSULE 60 MG PO (09:06)
[2025-10-02] MEDS: SENNA 8.6MG TABLET 8.6 MG PO (11:08)
[2025-10-02] MEDS: PRENATAL MULTIVITAMIN W/IRON 1 EACH PO (17:23)
[2025-10-02 20:00] VITALS: BP 129/80; PULSE 96; RESP 16; TEMP 36.8; O2SAT 100
[2025-10-02] MEDS: MONTELUKAST SODIUM 10MG TAB 10 MG PO (20:34)
[2025-10-02] MEDS: GLYCERIN ADULT 3GM SUPP 3 GM RC (20:44)
[2025-10-02] MEDS: BUSPIRONE HCL 5 MG TABLET PO (23:35)
[2025-10-03] MEDS: ACETAMINOPHEN 500MG TAB 1000 MG PO ×2 (05:04→13:21)
[2025-10-03] MEDS: OXYCODONE 5MG IMMEDIATE RELEASE TABLET 5 MG PO (05:05)
[2025-10-03 05:11] VITALS: BP 132/72; PULSE 84; RESP 18; TEMP 36.5; O2SAT 98
[2025-10-03 05:44] LABS: Albumin Level 3.1 g/dl (3.5-5.0); Chloride 105 mmol/L (98-107); Potassium 3.9 mmoL/L (3.5-5.1); Sodium 138 mmol/L (136-145)
[2025-10-03 05:47] LABS: Alanine Aminotransferase 6 U/L (12-78); Albumin/Globulin Ratio 1.1 (1.1-1.8); Alkaline Phosphatase 139 U/L (38-126); Anion Gap 11.9 mEq/L (5-15); Aspartate Amino Transferase 25 U/L (14-36); Bilirubin,Total 0.3 mg/dl (0.2-1.3); Blood Urea Nitrogen 12 mg/dl (7-17); Calcium 8.6 mg/dl (8.4-10.2); Carbon Dioxide 25 mmol/L (22.0-30.0); Creatinine Clearance Estimated 92 mL/min (50-200); Creatinine,Serum 0.80 mg/dl (0.52-1.04); Estimated Glomerular Filt Rate 87 ml/min (>60); GFR (African American) 105 ML/MIN (>60); Globulin 2.7 g/dL (1.3-3.2); Glucose 87 mg/dl (74-100); Total Protein,Serum 5.8 g/dl (6.3-8.2)
[2025-10-03] MEDS: LEVOTHYROXINE 100MCG (0.1MG) TAB 100 MCG PO (06:48)
[2025-10-03] MEDS: FLUOXETINE 20MG CAPSULE 60 MG PO (09:14)
--- NOTE | 2025-10-03 09:55 | P.DS_ITS ---
General Admission date:: 09/30/25 Discharge date: 10/03/25 HPI HPI HPI: Mrs Sheila Harris is a 25 yo at 37w4d who presented to L&D with complaint of leakage of fluid that woke her from sleep at 0300. She has been having contractions but intensity increased after gush of fluid. Baby is active. complicated by preeclampsia, maternal obesity, hypothyroidism and LGA baby. She is electing for primary secondary to LGA baby. Elective c- section was scheduled for 0730 this morning secondary to preeclampsia. Upon arrival to L&D she was grossly ruptured and 6-7 cm dilated. She requested to proceed with elective . She also requested permanent sterilization at time of . Last growth ultrasound 09/23/25 EFW was 93 %ile. Previous growth ultrasound, 08/22/25, had baby measuring 97 %ile with BPD and HC measuring > 98 %ile. Hospital Course Hospital Course Hospital Course: Sheila Miles is a 25-year-old G3, P3 postop day #3 from a primary low- transverse delivery with bilateral salpingectomy. She presented in labor and was noted to be 8 cm dilated. She continued to request delivery with permanent sterilization. was complicated by preeclampsia, maternal obesity, hypothyroidism and LGA baby. Her delivery and course have been complicated by increased fluid at the time of delivery, a ZACK drain was placed and noted increased output and peritoneal fluid. She has been worked up for a injury at the time of delivery and CT scan was negative. Her CMP has been followed and her creatinine is within normal limits. She delivered a live viable male : Francesco weighing 8 pounds and 9 ounces on 09/30/2025. Apgars were 8 and 9 at 1 and 5 minutes respectively. She has done well and has remained afebrile with her at her hospitalization. She is eating and drinking and ambulating. Her lochia is normal. She has O Rh+ blood, she is rubella immune and was group B streptococcus unknown. She will be discharged home to follow-up with Dr. Andrade in 2 weeks time. She will continue with her vitamins and iron. She has a prescription for Percocet and will continue these at home. She will take ibuprofen as well. She was given the usual instructions with respect to limiting her activity, driving and sexual activity. She was given instructions with respect to wound care. Her condition on discharge is stable and improved. Exam Data for Last 24 hours Vital signs and Labs for Last 24 Hours: Temp Pulse Resp BP Pulse Ox O2 Del Method 97.7 F 84 18 132/72 98 Room Air 10/03/25 05:11 10/03/25 05:11 10/03/25 05:11 10/03/25 05:11 10/03/25 05:11 10/03/25 05:11 Laboratory Results - last 24 hr 10/03/25 05:18: Sodium 138, Potassium 3.9, Chloride 105, Carbon Dioxide 25, Anion Gap 11.9, BUN 12, Creatinine 0.80 D, Estimated Creat Clear 92, Estimated GFR 87, Est GFR ( Amer) 105 D, Glucose 87, Calcium 8.6, Total Bilirubin 0.3, AST 25, ALT 6 L, Alkaline Phosphatase 139 H, Total Protein 5.8 L, Albumin 3.1 L D, Globulin 2.7, Albumin/Globulin Ratio 1.1 I & O for Last 24 hours: Intake & Output 09/30/25 10/01/25 10/02/25 10/03/25 23:59 23:59 23:59 23:59 Intake Total 8300 / 8300 1398 / 1398 832 / 832 Output Total 820 / 820 2410 / 2410 1100 / 1100 Balance 7480 / 7480 -1012 / -1012 -268 / -268 Weight 246 lb Microbiology Reports for the Last 24 Hours: Microbiology 09/30/25 04:40 Urine,Catheterized Urine Culture - Final No growth. Constitutional Constitutional: no acute distress *Routine HEENT Exam Head: Present normocephalic Eye: Present EOMI and PERRL ENT: Present mucous membranes moist *Routine Neck Exam Neck: Present supple; Absent lymphadenopathy *Routine Respiratory Exam Respiratory: Present CTA bilaterally *Routine Cardiovascular Exam Cardiovascular: Present RRR *Routine Abdominal Exam Abdominal: Present soft and normoactive bowel sounds; Absent tenderness *Routine Extremities Exam Extremities: Absent cyanosis, clubbing or edema *Routine Skin Exam Skin: Present warm; Absent rash *Routine Neurological Exam Neurological: Present alert and oriented X3 Results Data Completed and Pending Labs on day of discharge: Labs from last 24 hours 10/03/25 05:18 Sodium 138 Potassium 3.9 Chloride 105 Carbon Dioxide 25 Anion Gap 11.9 BUN 12 Creatinine 0.80 D Estimated Creat Clear 92 Estimated GFR 87 Est GFR ( Amer) 105 D Glucose 87 Calcium 8.6 Total Bilirubin 0.3 AST 25 ALT 6 L Alkaline Phosphatase 139 H Total Protein 5.8 L Albumin 3.1 L D Globulin 2.7 Albumin/Globulin Ratio 1.1 DS: Diagnosis Discharge Diagnosis (1) Delivery by elective section: Status: Acute Code(s): O82 - Encounter for delivery without indication (2) Active labor: Status: Acute (3) Spontaneous rupture of membranes: Status: Acute (4) 37 weeks gestation of : Status: Acute Code(s): Z3A.37 - 37 weeks gestation of (5) Preeclampsia: Status: Acute Code(s): O14.90 - Unspecified pre-eclampsia, unspecified trimester Qualifiers: Trimester: third trimester Qualified Code(s): O14.93 - Unspecified pre- eclampsia, third trimester (6) Hypothyroidism complicating : Status: Acute Code(s): O99.280 - Endocrine, nutritional and metabolic diseases complicating , unspecified trimester; E03.9 - Hypothyroidism, unspecified Qualifiers: Trimester: third trimester Qualified Code(s): O99.283 - Endocrine, nutritional and metabolic diseases complicating , third trimester; E03.9 - Hypothyroidism, unspecified (7) Maternal obesity affecting , antepartum: Status: Acute Code(s): O99.210 - Obesity complicating , unspecified trimester Qualifiers: Obesity type affecting : unspecified obesity Qualified Code(s): O99.210 - Obesity complicating , unspecified trimester (8) Acute blood loss anemia: Status: Acute Code(s): D62 - Acute posthemorrhagic anemia (9) Depression: Status: Acute Code(s): F32.A - Depression, unspecified Qualifiers: Depression Type: unspecified Qualified Code(s): F32.A - Depression, unspecified (10) anxiety: Status: Acute Code(s): O99.345 - Other mental disorders complicating the puerperium; F41.8 - Other specified anxiety disorders (11) DUNCAN (acute kidney injury): Status: Acute Code(s): N17.9 - Acute kidney failure, unspecified Meds Home Medications and Allergies Home Medications ?Medication ?Instructions ?Recorded ?Confirmed ?Type fluoxetine 60 mg tablet 60 mg PO DAILY #30 tabs 07/2309/30/25 Rx levothyroxine 100 mcg tablet 100 mcg PO DAILY #30 tabs 09/08/25 09/30/25 Rx (Synthroid) cyclobenzaprine 5 mg tablet 5 mg PO BIDP PRN muscle sp asm 09/30/25 09/30/25 History montelukast 10 mg tablet 10 mg PO HS 09/30/25 5 History promethazine 12.5 mg tablet 12.5 mg PO Q6HP PRN vomiti ng 09/30/25 09/30/25 History acetaminophen 500 mg tablet 500 mg PO Q6H PRN fever or pain 10/03/25 Rx #30 tabs ferrous sulfate 325 mg (65 mg 325 mg PO DAILY #30 tabs 10/03/25 Rx iron) tablet,delayed release ibuprofen 800 mg tablet 800 mg PO Q8H PRN pain #60 t abs 10/03/25 Rx oxycodone 5 mg tablet 5 mg PO Q8H PRN pain #20 tab s 10/03/25 Rx sennosides 8.6 mg tablet (Senna 8.6 mg PO BIDP PRN Con stipation 10/03/25 Rx Lax) #60 tabs simethicone 125 mg tablet 125 mg PO DAILY PRN abdomina l 10/03/25 Rx distention #60 tabs New Prescriptions to Start Prescriptions: acetaminophen Jennifer Pelayo ferrous sulfate Jennifer Pelayo ibuprofen Jennifer Pelayo oxycodone Jennifer Pelayo sennosides [Senna Lax] Jennifer Pelayo simethicone Jennifer Pelayo Allergies Allergy/AdvReac Type Severity Reaction Status Date / Time COVID-19 vaccine, Allergy Severe Anaphylaxis Verified 09/23/25 15:29 recombinant (Nova prochlorperazine (From Allergy Severe Other Verified 09/23/25 15:29 Compazine) influenza A (H5N1) virus AdvReac Severe Other Verified 09/23/25 15:29 vaccine mo ondansetron (From Zofran) AdvReac Nausea Verified 09/23/25 15:29 Discharge Plan Disposition Patient Disposition: Home, Self-Care Discharge Order Discharge Orders: Discharge Order (Routine); Ordered 10/03/25 Ordered By: Jennifer Pelayo Follow up Plan Follow up with: Sheila Andrade DO [Staff Physician, SURVEY CHIEF] - 10/10/25 3:30 pm Prescriptions/Medication Reconciliation: New sennosides [Senna Lax] 8.6 mg Tablet 8.6 mg PO BIDP PRN (Reason: Constipation) Qty: 60 2RF ibuprofen 800 mg tablet 800 mg PO Q8H PRN (Reason: pain) Qty: 60 2RF acetaminophen 500 mg tablet 500 mg PO Q6H PRN (Reason: fever or pain) Qty: 30 3RF simethicone 125 mg tablet 125 mg PO DAILY PRN (Reason: abdominal distention) Qty: 60 2RF ferrous sulfate 325 mg (65 mg iron) tablet,delayed release (DR/EC) 325 mg PO DAILY Qty: 30 3RF oxycodone 5 mg tablet 5 mg PO Q8H PRN (Reason: pain) Qty: 20 0RF Continued fluoxetine 60 mg tablet 60 mg PO DAILY Qty: 30 5RF levothyroxine [Synthroid] 100 mcg tablet 100 mcg PO DAILY Qty: 30 1RF promethazine 12.5 mg tablet 12.5 mg PO Q6HP PRN (Reason: vomiting) montelukast 10 mg tablet 10 mg PO HS cyclobenzaprine 5 mg tablet 5 mg PO BIDP PRN (Reason: muscle spasm) Problem Reconciliation Problems Reviewed?: Yes Patient Discharge Instructions ACTIVITY: Continue current activity DIET: regular diet Additional Instructions: Congratulations on the delivery of your sweet baby boy. It is my privilege to be apart of your OBGYN team. Discharge: 1. Take 800 mg Ibuprofen every 8 hours as needed for pain. You can also take 500-1000mg of Tylenol in between doses, every 6-8 hours. Use prescription pain medicine for pain you feel in between 8 hour interval. -No driving while taking narcotic pain medications. In order to drive you should be able to slam on the brakes without significant abdominal pain. 2. Wean from prescription pain medicine first. Do not drive while taking it. 3. Prescription pain medicine can make you constipated. Colace can be taken 1-2 times per day as you need. Make sure to drink at least 8 cups of water per day. 4. Iron supplements can make you constipated. Colace can be taken 1-2 times per day as you need. You can take iron tablets every other day if constipation is too bad. 5. Nothing in the vagina for 6 weeks - no intercourse, douching, tampons. No tub baths or swimming pools 6. Do not lift greater than 15 pounds for 6 weeks, this is the equivalent of 2 gallons of milk. 7. Reasons to return to L&D or call On-Call doctor - fever (greater than 100.4) - heavy vaginal bleeding (soaking through 1 pad in less than 2 hours or passing clots that are egg sized) - vaginal discharge (malodorous and/or purulent) - bleeding or discharge from her incision - severe headaches, leg tenderness/edema, or any other symptoms that warrant immediate medical attention. 8. depression/blues - Normal to feel anxious/overwhelmed for first 2 weeks - Talk to your doctor if: anxiety lasts over 2 weeks, trouble bonding with baby, withdrawing from other family members, thoughts of harming yourself or others Blood pressure and preeclampsia instructions 1. Please take your blood pressure twice daily. 2. Please call if greater than 2 values are higher than: 150 systolic (the top number) or 100 diastolic (the bottom number). 3. Please go to the emergency room or labor and delivery triage if any value is higher than: 160 systolic (the top number) or 110 diastolic (the bottom number). 4. Please call if unrelenting headache (does not go away with rest or Tylenol or ibuprofen), changes in vision (spots, floaters, flashes of light), chest pain, shortness of breath, or right upper quadrant (liver) abdominal pain. Jennifer Pelayo DO [facility] [phone] *Nothing in the Vagina for 6 weeks* *No strenuous activity* *No heavy lifting* *No tub baths until okay's by MD* Patient Instructions: Depression, Hemorrhage, DI for , DI for Pre-eclampsia, [facility] Post Discharge Instructions Print Language: Macanese Providers Primary Care Provider: Sanford Miller Admit Provider: Sheila Andrade Attending Provider: Sheila Andrade
[2025-10-03] MEDS: IBUPROFEN 400 MG TABLET 800 MG PO (13:20)
== END 2025-10-03 14:38 | disposition home or self-care (01) | DRG 783 ==
LOC: OBOUT 04:20 → OB 04:20
PROVIDERS: Admitting Provider Obstetrics & Gynecology; PCP Family Medicine; Visit Provider Obstetrics & Gynecology
PROC: 10D00Z1 Extraction of Products of Conception, Low, Open Approach (ICD-10-PCS; CPT 59514; principal; 2025-09-30 07:30)
DX: O42.02 Full-term premature rupture of membranes, onset of labor within 24 hours of rupture (principal); O90.49 Other postpartum acute kidney failure; D62 Acute posthemorrhagic anemia; Z3A.37 37 weeks gestation of pregnancy; Z37.0 Single live birth; O14.94 Unspecified pre-eclampsia, complicating childbirth; O99.214 Obesity complicating childbirth; O99.284 Endocrine, nutritional and metabolic diseases complicating childbirth; E03.9 Hypothyroidism, unspecified; O36.63X0 Maternal care for excessive fetal growth, third trimester, not applicable or unspecified; O90.81 Anemia of the puerperium; O99.344 Other mental disorders complicating childbirth; F32.A Depression, unspecified; O99.345 Other mental disorders complicating the puerperium; F41.8 Other specified anxiety disorders; O99.334 Smoking (tobacco) complicating childbirth; F17.290 Nicotine dependence, other tobacco product, uncomplicated; Z30.2 Encounter for sterilization; Z23 Encounter for immunization; Z88.7 Allergy status to serum and vaccine; Z88.8 Allergy status to other drugs, medicaments and biological substances; Z79.890 Hormone replacement therapy; Z79.899 Other long term (current) drug therapy
CPT/HCPCS: 36415; 51702; 74018; 74178; 80053; 81001; 82570; 84156; 85025; 85384; 85610; 85730; 86592; 86850; 87086; 94761; J0456; J0665; J1171; J1756; J1885; J2250; J2270; J2405; J2590; J2704; J3010; J7050; J7120; Q9967

== ENCOUNTER 2025-10-05 18:58 | Inpatient (IN) | payer OTHER, SELFPAY ==
[2025-10-05 19:05] VITALS: BP 144/95; PULSE 94; O2SAT 98
--- NOTE | 2025-10-05 19:06 | ED_ITS ---
Discharge Plan Disposition Patient Disposition: Admitted Prescriptions Prescriptions: No Action fluoxetine 60 mg tablet 60 mg PO DAILY Qty: 30 5RF levothyroxine [Synthroid] 100 mcg tablet 100 mcg PO DAILY Qty: 30 1RF promethazine 12.5 mg tablet 12.5 mg PO Q6HP PRN (Reason: vomiting) montelukast 10 mg tablet 10 mg PO HS cyclobenzaprine 5 mg tablet 5 mg PO BIDP PRN (Reason: muscle spasm) sennosides [Senna Lax] 8.6 mg Tablet 8.6 mg PO BIDP PRN (Reason: Constipation) Qty: 60 2RF ibuprofen 800 mg tablet 800 mg PO Q8H PRN (Reason: pain) Qty: 60 2RF acetaminophen 500 mg tablet 500 mg PO Q6H PRN (Reason: fever or pain) Qty: 30 3RF simethicone 125 mg tablet 125 mg PO DAILY PRN (Reason: abdominal distention) Qty: 60 2RF ferrous sulfate 325 mg (65 mg iron) tablet,delayed release (DR/EC) 325 mg PO DAILY Qty: 30 3RF oxycodone 5 mg tablet 5 mg PO Q8H PRN (Reason: pain) Qty: 20 0RF buspirone 10 mg tablet 10 mg PO BID PRN (Reason: anxiety) Qty: 60 2RF Referrals Follow up/Referrals: Sanford Miller MD [Primary Care Provider, Internal Medicine] - See instructions Clinical Impressions Clinical Impression: Cellulitis Print Language Print Language: Macedonian Discharge ED Provider: Renetta Young General Adult HPI General Chief complaint: PAIN Stated complaint: previous c section pain and nausea Time Seen by Provider: 10/05/25 19:05 History of Present Illness HPI narrative: Patient is a 25-year-old female who is 5 days from who was discharged on the who presented to the emergency department with concerns for lower abdominal pain. Patient delivered at 37 weeks for preeclampsia. Patient did have a complicated with extra fluid in her abdomen which required a ZACK drain. Patient's ZACK drain was removed prior to discharge. Patient states that she has been taking oxycodone at home for pain control. Patient states that she had worsening [facility] Patient has nausea but no vomiting. Patient states that she has had a bowel movement since surgery but has not had 1 today. Patient states that she has had some mild vaginal bleeding but no bleeding from her incision. Related Data Home Medications ?Medication ?Instructions ?Recorded ?Confirmed cyclobenzaprine 5 mg tablet 5 mg PO BIDP PRN muscle sp asm 09/30/25 09/30/25 montelukast 10 mg tablet 10 mg PO HS 09/30/25 5 promethazine 12.5 mg tablet 12.5 mg PO Q6HP PRN vomiti ng 09/30/25 09/30/25 Previous Rx's ?Medication ?Instructions ?Recorded fluoxetine 60 mg tablet 60 mg PO DAILY #30 tabs 07/23 05/16 levothyroxine 100 mcg tablet 100 mcg PO DAILY #30 tabs 09/08/25 (Synthroid) acetaminophen 500 mg tablet 500 mg PO Q6H PRN fever or pain 10/03/25 #30 tabs buspirone 10 mg tablet 10 mg PO BID PRN anxiety #60 tabs 10/03/25 ferrous sulfate 325 mg (65 mg 325 mg PO DAILY #30 tabs 10/03/25 iron) tablet,delayed release ibuprofen 800 mg tablet 800 mg PO Q8H PRN pain #60 t abs 10/03/25 oxycodone 5 mg tablet 5 mg PO Q8H PRN pain #20 tab s 10/03/25 sennosides 8.6 mg tablet (Senna 8.6 mg PO BIDP PRN Con stipation 10/03/25 Lax) #60 tabs simethicone 125 mg tablet 125 mg PO DAILY PRN abdomina l 10/03/25 distention #60 tabs Allergies Allergy/AdvReac Type Severity Reaction Status Date / Time COVID-19 vaccine, Allergy Severe Anaphylaxis Verified 09/23/25 15:29 recombinant (Nova prochlorperazine (From Allergy Severe Other Verified 09/23/25 15:29 Compazine) influenza A (H5N1) virus AdvReac Severe Other Verified 09/23/25 15:29 vaccine mo ondansetron (From Zofran) AdvReac Nausea Verified 09/23/25 15:29 [facility] Disclaimer: The information contained in this section may have been updated after the patient was seen, as this information can be updated by other users. Medical History (Updated 10/05/25 @ 22:32 by Alex Parrish MD) DUNCAN (acute kidney injury) anxiety Delivery by elective section Request for sterilization Spontaneous rupture of membranes 37 weeks gestation of Active labor Preeclampsia LGA (large for gestational age) fetus affecting management of mother UTI (urinary tract infection) Hematuria with proteinuria Hypothyroidism complicating Maternal obesity affecting , antepartum Encounter for IUD insertion Acute blood loss anemia ADHD Hypothyroidism Asthma Nelida's disease Anxiety Depression Allergies Surgical History S/P wisdom tooth extraction Family History Family/Other Cancer cervical-paternal side Mother Epilepsy Other Diabetes Social History (Updated 09/30/25 @ 10:45 by Elizabeth Marroquin RN) Smoking Status: Unknown if ever smoked smoking status start date: vape alcohol intake: never substance use type: denies use current occupational status: unemployed Travel in the last 8 weeks?: None Have you lived/traveled outside [place] in past 30 days?: No Contact w/someone who lives/traveled outside US past 30 days?: No Exposure to someone with infectious disease in past 14 days?: No Do you have a fever (greater than 100.4 F or 38 C)?: No Have you tested positive for COVID-19?: No Exposed to someone with COVID-19 in past 14 days?: No Do you have a sore throat?: No Do you have a cough?: No Do you have any weakness?: No Do you have any diarrhea?: No Are you experiencing any unusual bleeding?: No Do you have any muscle aches/pain?: No Do you have any abdominal pain?: Yes Are you experiencing loss of taste or smell?: No Other Medical History Have you received the Flu Vaccine for this season: No Have you received the Pneumonia Vaccine: No ROS Obtained: Yes All systems reviewed & no additional complaints except as documented and Yes Systems reviewed as appropriate & no additional complaints except as documented Physical Exam General General appearance: alert and in no apparent distress Head Head exam: atraumatic, normocephalic and normal inspection Eye Eye exam: Present normal appearance, PERRL and EOMI; Absent scleral icterus ENT ENT exam: Present normal exam and normal external ear exam Neck Neck exam: Present normal inspection and full ROM Chest Chest inspection: Present normal inspection and symmetric chest wall rise Respiratory Respiratory exam: Present normal lung sounds bilaterally; Absent respiratory distress or wheezes Cardiovascular Cardiovascular exam: Present regular rate, normal rhythm and normal heart sounds Abdominal Exam Abdominal exam: Present soft, distention and tenderness (lower abdominal tenderness, scar present with rosa m); Absent guarding or rebound Extremities Exam Extremities exam: Present normal inspection and full ROM Back Exam Back exam: Present normal inspection and full ROM Neurological Exam Neurological exam: Present alert and oriented X3 Psychiatric Psychiatric exam: Present normal affect and normal mood Skin Skin exam: Present warm and dry Medical Decision Making Medical Records Medical records reviewed: Yes I reviewed the patient's medical records. Screening: Per USPSTF and CDC recommendations, given the prevalence of disease in our region, it is our hospital?s policy to screen for HIV and viral Hepatitis for all patients aged 18 and over and those with ongoing risk factors. Andrés Inquiry Pt receiving controlled substance: No Vital Signs: 10/05/25 19:05 10/05/25 19:08 10/05/25 20:30 Temperature 97.8 F Temperature Source Oral Pulse Rate 94 H 70 Pulse Rate [Radial] 88 Respiratory Rate 18 Blood Pressure 144/95 H 152/96 H Blood Pressure [Right Arm] 144/95 H Blood Pressure Mean 111 113 Blood Pressure Mean [Right Arm] 111 Blood Pressure Source Blood Pressure Source [Right Arm] Automatic Cuff Blood Pressure Position Blood Pressure Position [Right Arm] Sitting 02 Sat by Pulse Oximetry 98 98 97 Oxygen Delivery Method Room Air 10/05/25 22:01 10/05/25 22:25 Temperature 98.2 F 98.2 F Temperature Source Oral Oral Pulse Rate 78 Pulse Rate [Radial] 63 Respiratory Rate 20 18 Blood Pressure 112/79 Blood Pressure [Right Arm] 152/96 H Blood Pressure Mean Blood Pressure Mean [Right Arm] 114 Blood Pressure Source Automatic Cuff Blood Pressure Source [Right Arm] Automatic Cuff Blood Pressure Position Sitting Blood Pressure Position [Right Arm] Sitting 02 Sat by Pulse Oximetry 100 Oxygen Delivery Method Room Air Room Air Lab Data Lab results reviewed: Yes I reviewed the patient's lab results. Lab Results 10/05/25 19:29: WBC 6.8, RBC 3.96 L, Hgb 10.0 L, Hct 33.5 L, MCV 84.6, MCH 25.3 L, MCHC 29.9 L, RDW 15.9, Plt Count 291, MPV 9.4, Neut % (Auto) 79.2, Lymph % (Auto) 9.8 L, [place] % (Auto) 4.8, Eos % (Auto) 1.6, Baso % (Auto) 0.6, Neut # (Auto) 5.4, Lymph # (Auto) 0.7, [place] # (Auto) 0.3, Eos # (Auto) 0.1, Baso # (Auto) 0.0, PT 10.8, INR 0.97, Sodium 136, Potassium 4.2, Chloride 103, Carbon Dioxide 28, Anion Gap 9.2, BUN 15, Creatinine 1.10 H D, Estimated Creat Clear 133, Estimated GFR 60, Est GFR ( Amer) 73 D, Glucose 90, Calcium 8.8, Magnesium 2.0, Total Bilirubin 0.5, AST 31, ALT 13 D, Alkaline Phosphatase 142 H, Lactate Dehydrogenase 297 L, Total Protein 7.0, Albumin 3.9, Globulin 3.1, Albumin/Globulin Ratio 1.3 10/05/25 20:58: Urine Color Yellow, Urine Appearance Clear, Urine pH 8.0, Ur Specific [place] 1.010, Urine Protein Negative, Urine Glucose (UA) Negative, Urine Ketones Negative, Urine Blood 3+ A, Urine Nitrate Negative, Urine Bilirubin Negative, Urine Urobilinogen 0.2, Ur Leukocyte Esterase Negative, Urine RBC 20-50 10/05/25 19:29 10/05/25 19:29 Orders (Tests/Meds): ED MEDICATIONS Generic Name Dose Route Start Last Admin Trade Name Freq PRN Reason Stop Dose Admin Ceftriaxone Sodium 1 gm/ 50 mls @ 100 mls/hr 10/05/25 22:25 Sodium Chloride IV 10/06/25 22:24 Q24H RAUL Metronidazole 500 mg in 100 mls @ 100 mls/hr 10/05/25 22:30 Flagyl 500mg/100ml Ivpb IV 10/06/25 22:29 Q8H RAUL Sodium Chloride 10 ml 10/05/25 20:02 10/05/25 20:03 Sodium Chloride 0.9% 10ml Syr (Rad Only) IV 11/04/25 20:01 10 ml NEEDED PRN Administration Maintain IV Site Discontinued Medications Generic Name Dose Route Start Last Admin Trade Name Freq PRN Reason Stop Dose Admin Iopamidol 75 ml 10/05/25 20:02 10/05/25 20:03 Iopamidol-370 (76%);100ml Bottle IV 10/05/25 20:03 75 ml ONCE ONE Administration Morphine Sulfate 4 mg 10/05/25 19:24 10/05/25 19:50 Morphine 4mg/Ml Syringe IV 10/05/25 19:25 4 mg ONCE ONE Administration Ondansetron HCl 4 mg 10/05/25 19:24 10/05/25 19:50 Ondansetron 4mg/2ml Vial IV 10/05/25 19:25 4 mg ONCE ONE Administration ORDERS Category Date Time Status CT abdomen pelvis w con Stat Cat Scan 10/05/25 19:24 Completed CBC w/Auto Diff [Complete Blood Count Auto Diff] Stat Lab 10/05/25 19:29 Completed CMP [Comprehensive Metabolic Panel] Stat Lab 10/05/25 19:29 Completed LDH [Lactate Dehydrogenase] Stat Lab 10/05/25 19:29 Completed Magnesium Stat Lab 10/05/25 19:29 Completed Prothrombin Time INR Stat Lab 10/05/25 19:29 Completed UA [Urinalysis and Microscopic] Stat Lab 10/05/25 20:58 Completed Urine Culture Stat Micro 10/05/25 20:58 Received Medical Decision Narrative: Patient is an otherwise healthy 25-year-old female who is 5 days post who presents to the emergency department with lower abdominal pain. On arrival, patient was hemodynamically stable with unremarkable vital signs. Differential includes but not limited to:Intra-abdominal abscess, postoperative pain, bowel obstruction, urinary tract infection, ileus, amongst others. Patient's labs were reviewed and interpreted by myself: CBC showed no leukocytosis, hemoglobin was stable. CMP was unremarkable except for mildly elevated creatinine at 1.1. UA showed no evidence of infection. CT scan of the abdomen was obtained which showed concern for developing complicated small bowel obstruction or internal hernia. Given the patient was 5 days postop from , initially OB was consulted, however they recommended general surgery evaluation. I discussed the case with general surgery, patient was ultimately taken to the operating room with plan for general surgery admission afterwards. Although patient is hypertensive in the emergency department, patient is not having a headache vision changes or other neurologic symptoms. Patient's urine was negative for protein. And patient's LFTs were normal. I did discuss this with OB. Critical Care Critical Care Time Critical Care Time: No
[2025-10-05 19:08] VITALS: BP 144/95; PULSE 88; RESP 18; TEMP 36.6; O2SAT 98; BMI 41.1
--- NOTE | 2025-10-05 19:24 | CT_ITS ---
PROCEDURE INFORMATION: Exam: CT Abdomen And Pelvis With Contrast Exam date and time: 10/05/2025 7:42 PM Age: 25 years old Clinical indication: Abdominal pain; Additional info: Post-operative pain TECHNIQUE: Imaging protocol: Computed tomography of the abdomen and pelvis with contrast. Radiation optimization: All CT scans at this facility use at least one of these dose optimization techniques: automated exposure control; mA and/or kV adjustment per patient size (includes targeted exams where dose is matched to clinical indication); or iterative reconstruction. Contrast material: ISOVUE; Contrast volume: 75 ml; Contrast route: IV; COMPARISON: CT ABDOMEN PELVIS WO/W CON 09/30/2025 11:30 AM FINDINGS: Lungs: Lung bases are clear. Liver: Hepatomegaly measuring 19 cm and mild splenomegaly measuring 14.5 cm redemonstrated. Gallbladder and biliary ducts: Normal. No calcified stones. No ductal dilation. Pancreas: Normal. No ductal dilation. Spleen: See Liver finding. Adrenal glands: Normal. No mass. Kidneys and ureters: 3 mm nonobstructing left kidney stone. Kidneys and ureters otherwise unremarkable with no obstructing stones or uropathy. Stomach and bowel: Interval development of abnormal distended small bowel loops in the mid abdomen and upper pelvis configured in a C-shaped configuration with associated elrrqqas-wn-vnjeia wall thickening and mesenteric edema. Possible mild mesenteric swirling in this region also noted. Associated transition to decompressed more distal small bowel loops in the right lower quadrant. Dilated fluid-filled more proximal small bowel loops without wall thickening noted just proximal to this area in the left midabdomen measuring up to 3.1 cm in caliber. The most proximal small bowel loops in the left upper quadrant are not dilated. Appendix: No evidence of appendicitis. Intraperitoneal space: Small to moderate amount of pelvic free fluid and mild free fluid in the right upper quadrant and left upper quadrant has developed in the interval. Vasculature: Unremarkable. No abdominal aortic aneurysm. Lymph nodes: Unremarkable. No enlarged lymph nodes. Urinary bladder: Unremarkable as visualized. Reproductive: Postop changes compatible with recent redemonstrated. Interval decrease in size of the uterus noted. Fluid noted within the incision site. Soft tissue air in the anterior pelvic wall redemonstrated with interval improvement. Bones/joints: Unremarkable. No acute fracture. Soft tissues: See Reproductive finding. IMPRESSION: 1. Interval development of multiple distended small bowel loops in the upper pelvis and midabdomen pelvis arranged in C-shaped configuration with associated ritzzzaa-cu-qovacu wall thickening and mesenteric edema. Possible mild mesenteric swirling in this region also noted. Dilated fluid-filled more proximal small bowel loops without wall thickening noted just proximal to this area in the left midabdomen measuring up to 3.1 cm in caliber. Associated transition zone to decompressed more distal small bowel loops in the right lower quadrant. These findings are suggestive of a developing complicated SBO with close loop obstruction and/or internal hernia. A severe enteritis might also be considered. 2. Small to moderate amount of pelvic free fluid and mild free fluid in the right upper quadrant and left upper quadrant has developed in the interval. 3. Additional nonemergent findings as above.
[2025-10-05 19:40] LABS: Hematocrit 33.5 % (37.0-47.0); Hemoglobin 10.0 g/dL (12.2-16.2); Immature Granulocytes % 4.0 %; Mean Corpuscular HGB Conc 29.9 g/dL (31.8-35.4); Mean Corpuscular Hemoglobin 25.3 pg (27.0-31.2); Mean Corpuscular Volume 84.6 fl (81-99); Nucleated Red Blood Cells % 0.4 %; Platelet Count 291 K/mm3 (142-424); Red Blood Count 3.96 M/mm3 (4.20-5.40); Red Cell Distribution Width-SD 44.9 fL; White Blood Count 6.8 K/mm3 (4.8-10.8)
[2025-10-05 19:46] LABS: INR 0.97 (0.9-1.1); Prothrombin Time 10.8 seconds (10.1-12.5)
[2025-10-05 19:48] LABS: Albumin Level 3.9 g/dl (3.5-5.0); Chloride 103 mmol/L (98-107); Sodium 136 mmol/L (136-145)
[2025-10-05 19:49] LABS: Potassium 4.2 mmoL/L (3.5-5.1)
[2025-10-05] MEDS: ONDANSETRON 4MG/2ML VIAL 4 MG IV (19:50)
[2025-10-05] MEDS: MORPHINE 4MG/ML SYRINGE 4 MG IV (19:50)
[2025-10-05 19:51] LABS: Alanine Aminotransferase 13 U/L (12-78); Albumin/Globulin Ratio 1.3 (1.1-1.8); Alkaline Phosphatase 142 U/L (38-126); Aspartate Amino Transferase 31 U/L (14-36); Bilirubin,Total 0.5 mg/dl (0.2-1.3); Blood Urea Nitrogen 15 mg/dl (7-17); Creatinine Clearance Estimated 133 mL/min (50-200); Creatinine,Serum 1.10 mg/dl (0.52-1.04); Estimated Glomerular Filt Rate 60 ml/min (>60); GFR (African American) 73 ML/MIN (>60); Globulin 3.1 g/dL (1.3-3.2); Magnesium 2.0 mg/dl (1.6-2.3); Total Protein,Serum 7.0 g/dl (6.3-8.2)
[2025-10-05 19:52] LABS: Calcium 8.8 mg/dl (8.4-10.2); Glucose 90 mg/dl (74-100)
[2025-10-05] MEDS: SODIUM CHLORIDE 0.9% 10ML SYR (RAD ONLY) 10 ML IV (20:03)
[2025-10-05] MEDS: IOPAMIDOL-370 (76%);100ML BOTTLE 75 ML IV (20:03)
[2025-10-05 20:10] LABS: Anion Gap 9.2 mEq/L (5-15); Carbon Dioxide 28 mmol/L (22.0-30.0)
[2025-10-05 20:30] VITALS: BP 152/96; PULSE 70; O2SAT 97
--- NOTE | 2025-10-05 20:59 | PC.NURSE ---
paging general surgery now
[2025-10-05 21:04] LABS: Bilirubin,Urine Negative (Negative); Color,Urine YELLOW (Yellow); Glucose,Urine (UA) Negative (Negative); Ketones,Urine Negative (Negative); Leukocyte Esterase,Urine Negative (Negative); Microscopic, Urine URINE MICROSCOPIC (MICROSCOPIC); PH,Urine 8.0 (5.0-8.5); Protein,Urine Negative (Negative); Specific Gravity, Urine 1.010 (1.005-1.030); Urobilinogen,Urine 0.2 EU/dl (0.2)
[2025-10-05 21:12] LABS: RBC,Urine 20-50 #/hpf (0-3)
[2025-10-05 22:01] VITALS: BP 112/79; PULSE 78; RESP 20; TEMP 36.8; O2SAT 98
--- NOTE | 2025-10-05 22:09 | PC.NURSE ---
general surgeon at bedside
--- NOTE | 2025-10-05 22:24 | EXP.SURG.CON ---
History of Present Illness *Admission Date: 10/05/25 *Reason for visit:: Abodminal pain *History of present illness: 25yo female presented to [facility]5 s/p done emergently for pre-eclampsia. She states she started having some abdominal pain last pm but thought it was just a part of the recovery from my surgery . She took her pain meds and a gas pill last pm. This am, she had nausea and persistent pain. Again took narcotic and gas pill as well as Ibuprofen without improvement. Much decreased appetite with associated nausea. Took a small sip of tea around 4pm or so this afternoon but none since. Was at local [facility] when pain became severe and described as being ripped apart . She came to the ER for further evaluation. ER workup with labs and imaging revealed normal WBC but imaging worrisome for internal hernia. Surgical consultation obtained. [facility] Disclaimer: The information contained in this section may have been updated after the patient was seen, as this information can be updated by other users. Medical History (Updated 10/05/25 @ 22:32 by Alex Parrish MD) DUNCAN (acute kidney injury) anxiety Delivery by elective section Request for sterilization Spontaneous rupture of membranes 37 weeks gestation of Active labor Preeclampsia LGA (large for gestational age) fetus affecting management of mother UTI (urinary tract infection) Hematuria with proteinuria Hypothyroidism complicating Maternal obesity affecting , antepartum Encounter for IUD insertion Acute blood loss anemia ADHD Hypothyroidism Asthma Nelida's disease Anxiety Depression Allergies Surgical History S/P wisdom tooth extraction Family History Family/Other Cancer cervical-paternal side Mother Epilepsy Other Diabetes Social History (Updated 09/30/25 @ 10:45 by Elizabeth Marroquin RN) Smoking Status: Unknown if ever smoked smoking status start date: vape alcohol intake: never substance use type: denies use current occupational status: unemployed Travel in the last 8 weeks?: None Have you lived/traveled outside US in past 30 days?: No Contact w/someone who lives/traveled outside US past 30 days?: No Exposure to someone with infectious disease in past 14 days?: No Do you have a fever (greater than 100.4 F or 38 C)?: No Have you tested positive for COVID-19?: No Exposed to someone with COVID-19 in past 14 days?: No Do you have a sore throat?: No Do you have a cough?: No Do you have any weakness?: No Do you have any diarrhea?: No Are you experiencing any unusual bleeding?: No Do you have any muscle aches/pain?: No Do you have any abdominal pain?: Yes Are you experiencing loss of taste or smell?: No Review of Systems Constitutional Constitutional: Reports as per HPI and Reports anorexia *Cardiovascular Cardiovascular: Reports system reviewed and no additional complaints, except as documented *Respiratory Respiratory: Reports system reviewed and no additional complaints, except as documented *Gastrointestinal Gastrointestinal: Reports as per HPI *Genitourinary Genitourinary: Reports as per HPI Meds Home Medications and Allergies Home Medications ?Medication ?Instructions ?Recorded ?Confirmed ?Type fluoxetine 60 mg tablet 60 mg PO DAILY #30 tabs 08/08/25 09/30/25 Rx levothyroxine 100 mcg tablet 100 mcg PO DAILY #30 tabs 09/08/25 09/30/25 Rx (Synthroid) cyclobenzaprine 5 mg tablet 5 mg PO BIDP PRN muscle spasm 09/30/25 09/30/25 History montelukast 10 mg tablet 10 mg PO HS 09/30/25 09/30/25 History promethazine 12.5 mg tablet 12.5 mg PO Q6HP PRN vomiting 09/30/25 09/30/25 History acetaminophen 500 mg tablet 500 mg PO Q6H PRN fever or pain 10/03/25 Rx #30 tabs buspirone 10 mg tablet 10 mg PO BID PRN anxiety #60 tabs 10/03/25 Rx ferrous sulfate 325 mg (65 mg 325 mg PO DAILY #30 tabs 10/03/25 Rx iron) tablet,delayed release ibuprofen 800 mg tablet 800 mg PO Q8H PRN pain #60 tabs 10/03/25 Rx oxycodone 5 mg tablet 5 mg PO Q8H PRN pain #20 tabs 10/03/25 Rx sennosides 8.6 mg tablet (Senna 8.6 mg PO BIDP PRN Constipation 10/03/25 Rx Lax) #60 tabs simethicone 125 mg tablet 125 mg PO DAILY PRN abdominal 10/03/25 Rx distention #60 tabs New Prescriptions to Start Prescriptions: Allergies Allergy/AdvReac Type Severity Reaction Status Date / Time COVID-19 vaccine, Allergy Severe Anaphylaxis Verified 09/23/25 15:29 recombinant (Nova prochlorperazine (From Allergy Severe Other Verified 09/23/25 15:29 Compazine) influenza A (H5N1) virus AdvReac Severe Other Verified 09/23/25 15:29 vaccine mo ondansetron (From Zofran) AdvReac Nausea Verified 09/23/25 15:29 Exam (Inpt) Vital signs and Labs for Last 24 Hours: Temp Pulse Resp BP Pulse Ox O2 Del Method 98.2 F 78 20 112/79 97 Room Air 10/05/25 22:01 10/05/25 22:01 10/05/25 22:01 10/05/25 22:01 10/05/25 20:30 10/05/25 22:01 Laboratory Results - last 24 hr 10/05/25 19:29: WBC 6.8, RBC 3.96 L, Hgb 10.0 L, Hct 33.5 L, MCV 84.6, MCH 25.3 L, MCHC 29.9 L, RDW 15.9, Plt Count 291, MPV 9.4, Neut % (Auto) 79.2, Lymph % (Auto) 9.8 L, Casey % (Auto) 4.8, Eos % (Auto) 1.6, Baso % (Auto) 0.6, Neut # (Auto) 5.4, Lymph # (Auto) 0.7, Casey # (Auto) 0.3, Eos # (Auto) 0.1, Baso # (Auto) 0.0, PT 10.8, INR 0.97, Sodium 136, Potassium 4.2, Chloride 103, Carbon Dioxide 28, Anion Gap 9.2, BUN 15, Creatinine 1.10 H D, Estimated Creat Clear 133, Estimated GFR 60, Est GFR ( Amer) 73 D, Glucose 90, Calcium 8.8, Magnesium 2.0, Total Bilirubin 0.5, AST 31, ALT 13 D, Alkaline Phosphatase 142 H, Lactate Dehydrogenase 297 L, Total Protein 7.0, Albumin 3.9, Globulin 3.1, Albumin/Globulin Ratio 1.3 10/05/25 20:58: Urine Color Yellow, Urine Appearance Clear, Urine pH 8.0, Ur Specific [place] 1.010, Urine Protein Negative, Urine Glucose (UA) Negative, Urine Ketones Negative, Urine Blood 3+ A, Urine Nitrate Negative, Urine Bilirubin Negative, Urine Urobilinogen 0.2, Ur Leukocyte Esterase Negative, Urine RBC 20-50 I & O for Labs for Last 24 Hours: Intake & Output 10/02/25 10/03/25 10/04/25 10/05/25 23:59 23:59 23:59 23:59 Weight 108.862 kg Constitutional: moderate distress, obese and cooperative Head: Present normocephalic and atraumatic ENT exam ED: Present normal external ear exam Neck: Present normal inspection and trachea midline Respiratory: Present normal respiratory effort and able to speak in complete sentences Cardiac: Present Regular Rate Comments:: Diffusely tender to palpation; bandage LLQ intact Rectal (female): Present deferred (female): Present deferred Extremities: Present normal inspection and normal capillary refill Skin: Present intact Results Labs 10/05/25 19:29 10/05/25 19:29 Labs: Laboratory Results - last 24 hr 10/05/25 19:29: WBC 6.8, RBC 3.96 L, Hgb 10.0 L, Hct 33.5 L, MCV 84.6, MCH 25.3 L, MCHC 29.9 L, RDW 15.9, Plt Count 291, MPV 9.4, Neut % (Auto) 79.2, Lymph % (Auto) 9.8 L, Casey % (Auto) 4.8, Eos % (Auto) 1.6, Baso % (Auto) 0.6, Neut # (Auto) 5.4, Lymph # (Auto) 0.7, Casey # (Auto) 0.3, Eos # (Auto) 0.1, Baso # (Auto) 0.0, PT 10.8, INR 0.97, Sodium 136, Potassium 4.2, Chloride 103, Carbon Dioxide 28, Anion Gap 9.2, BUN 15, Creatinine 1.10 H D, Estimated Creat Clear 133, Estimated GFR 60, Est GFR ( Amer) 73 D, Glucose 90, Calcium 8.8, Magnesium 2.0, Total Bilirubin 0.5, AST 31, ALT 13 D, Alkaline Phosphatase 142 H, Lactate Dehydrogenase 297 L, Total Protein 7.0, Albumin 3.9, Globulin 3.1, Albumin/Globulin Ratio 1.3 10/05/25 20:58: Urine Color Yellow, Urine Appearance Clear, Urine pH 8.0, Ur Specific [place] 1.010, Urine Protein Negative, Urine Glucose (UA) Negative, Urine Ketones Negative, Urine Blood 3+ A, Urine Nitrate Negative, Urine Bilirubin Negative, Urine Urobilinogen 0.2, Ur Leukocyte Esterase Negative, Urine RBC 20-[address] scan - abdomen: report reviewed and image reviewed (Agree findings are worrisome for internal hernia with associated SBO) Assessment and Plan *Assessment and plan (1) Internal hernia: Status: Acute Category: Medical Code(s): K45.8 - Other specified abdominal hernia without obstruction or gangrene Plan Operative intervention needed. Risks and benefits outlined to the patient, including bleeding and possible need for bowel resection. Will have chapa placed intraop and may need NGT intraop, both of which will likely be present post-operatively. Unclear currently if resection will be required. Post-op course to be heavily influenced by intraoperative findings. She and her state they understand and agree with this plan. The OR team has been contacted and are currently mobilizing. Rocephin and Flagyl ordered for abx ppx.
[2025-10-05 22:25] VITALS: BP 152/96; PULSE 63; RESP 18; TEMP 36.8; O2SAT 100
--- NOTE | 2025-10-05 22:29 | PC.NURSE ---
consent done, patient in a hospital gown, belongings placed in patient belonging bag. preop checklist done.
--- NOTE | 2025-10-05 22:58 | PC.NURSE ---
Alfredo Cartagena MAINTAINER OPERATOR at bedside to take patient to surgery department.
[2025-10-05] MEDS: METRONIDAZ/SOD CHL 500 MG/100 ML PIGGYBACK 100 MG IV (23:30)
--- NOTE | 2025-10-05 23:36 | EXP.ANES.CKL ---
[facility] Disclaimer: The information contained in this section may have been updated after the patient was seen, as this information can be updated by other users. Medical History (Updated 10/05/25 @ 22:32 by Alex Parrish MD) DUNCAN (acute kidney injury) anxiety Delivery by elective section Request for sterilization Spontaneous rupture of membranes 37 weeks gestation of Active labor Preeclampsia LGA (large for gestational age) fetus affecting management of mother UTI (urinary tract infection) Hematuria with proteinuria Hypothyroidism complicating Maternal obesity affecting , antepartum Encounter for IUD insertion Acute blood loss anemia ADHD Hypothyroidism Asthma Nelida's disease Anxiety Depression Allergies Surgical History S/P wisdom tooth extraction Family History Family/Other Cancer cervical-paternal side Mother Epilepsy Other Diabetes Social History (Updated 09/30/25 @ 10:45 by Elizabeth Marroquin RN) Smoking Status: Unknown if ever smoked smoking status start date: vape alcohol intake: never substance use type: denies use current occupational status: unemployed Travel in the last 8 weeks?: None Have you lived/traveled outside US in past 30 days?: No Contact w/someone who lives/traveled outside US past 30 days?: No Exposure to someone with infectious disease in past 14 days?: No Do you have a fever (greater than 100.4 F or 38 C)?: No Have you tested positive for COVID-19?: No Exposed to someone with COVID-19 in past 14 days?: No Do you have a sore throat?: No Do you have a cough?: No Do you have any weakness?: No Do you have any diarrhea?: No Are you experiencing any unusual bleeding?: No Do you have any muscle aches/pain?: No Do you have any abdominal pain?: Yes Are you experiencing loss of taste or smell?: No [facility] Anesthesia Checklist Patient Identification Patient Identification: Arm Band Structural Data Admitted From: Emergency Dept Planned Operative Procedure/s: Exploratory Laparotomy Consent for Planned Operative Procedure(s) Verified: Yes Verified Documents: Surgical Consent and History and Physical NPO Status Verified Time NPO: 16:00 (clear liquids) Additional verifications Anesthesia Reactions: No Airway Assessment Mallampati Score:: Class II C-Spine Mobility Assessed: Yes TMJ Mobility Assessed: Yes Dentition: Good Dentition Neurological Assessment Level of Consciousness: Awake, Alert and Appropriate Anesthesia Plan Anesthesia Risk discussed: Yes Anesthesia Plan: Verified ASA Class: II (E) Anesthesia Type: General
[2025-10-06] VITALS (19 sets, daily range): BP systolic 124–146; BP diastolic 50–92; PULSE 65–93; RESP 16–20; TEMP 36.6–43; O2SAT 93–99; BMI 40.9
--- NOTE | 2025-10-06 00:28 | EXP.OP.NOTE ---
Date of procedure: 10/06/25 Pre-op Diagnosis:: Internal hernia Post-op Diagnosis:: Same Procedure performed:: Exploratory laparotomy with reduction of internal hernia and lysis of adhesions Surgeon:: Alex Parrish MD Publicity Agent(s):: Alexandra Okeefe CST ALTITUDE CHAMBER TECHNICIAN:: Darek Cartagena Anesthesia: GETA Estimated blood loss (mL): 20 Operative findings:: Internal hernia held in place from what appeared to be an inflammatory band of omentum into the right pelvis; all bowel viable; bowel examined multiple times from ileocecal valve to ligament of Treitz Operative note:: Signed informed consent was obtained. Patient was brought to the operating theater placed in supine position on the operating table. SCDs were applied to bilateral lower extremities. General anesthesia was induced using RSI technique. Once satisfactorily anesthetized, a Carias catheter was placed and her abdomen was prepped with ChloraPrep and draped widely in a sterile fashion. Attention is directed at the midline of the abdomen where a laparotomy incision was created with a 20 blade scalpel. Dissection was carried through the subcutaneous tissue with the cautery down to the level of the fascia which was grasped with Miguel clamps and opened in the midline safely. The underlying peritoneum was grasped between hemostats and opened with a fresh blade. Free ascites fluid was noted from the abdomen. There was not any evidence of bile or succus or lizeth blood. I then extended the opening over a gloved finger to the extent of the skin incision. With the peritoneum opened I then eviscerated the small bowel and initially found normal caliber small bowel loops which then led to a loop that appeared to be dilated and thick at the omental edge. There was a band of omentum that was adhesed to the right lower quadrant in the area of the pelvis which was divided with cautery. This maneuver appeared to free the entrapped loop of bowel. At that point I was able to eviscerate the entirety of the small bowel for examination. I ran the small bowel from the terminal ileum to the ligament of Treitz, [id number] 3 times. In the section of the thickened area of small bowel blue/purple suture material was identified that was presumably suture material from recent surgery, as she has no prior surgery of the abdomen or pelvis before that. Irregardless, the small bowel was completely viable with just a short segment that remained a little thick but was normalizing. It did not have any strangulation. The mesentery and the small bowel had an area of band across it, also confirming internal hernia process. The abdomen is then irrigated with warm saline solution. I palpated the liver and it did not feel cirrhotic. The stomach was not grossly distended and therefore nasogastric tube was not requested. Irrigation was then suctioned from the abdomen and pelvis, to the extent possible. Small bowel was returned to the abdomen and gentle S-shaped curves. Omentum was redraped over the small bowel. Posterior sheath was then closed with 2-0 Vicryl in a running fashion. Anterior fascia of the rectus was closed with 0 Vicryl in multiple interrupted fashion. The subcutaneous space was then irrigated to remove any loose debris. Hemostasis was confirmed. The subcutaneous space was closed with 3-0 Vicryl multiple interrupted fashion. Dermis was closed with 3-0 Vicryl multiple interrupted fashion. Skin was reapproximated with the surgical skin stapler. The wound was cleansed, dried, dressed topically with fluffed gauze and Medipore tape. All sponge, needle, and instrument counts were correct at the end of the case. The patient tolerated the procedure well. She was awakened from anesthesia, extubated in the operating room, and taken to the recovery room in a stable/improved condition. Condition: stable Disposition: PACU Specimens:: None Complications:: None immediately noted
--- NOTE | 2025-10-06 00:35 | EXP.ANES.I ---
[facility] Anesthesia Record Part I Anesthesia Record I Intake, IV Amount: 1,400 Hydration: Adequate Estimated blood loss (mL): 20 Urine output (mL): 150 Blood Products used (#): none Blood Pressure: 127/65 SaO2: 95 Pulse Rate: 91 Airway Patency: Patent Respiratory Rate: 16 Temperature: 97.8 F Patient is:: Drowsy and Stable Stable to PACU at:: 00:30
[2025-10-06] MEDS: HYDROMORPHONE 2MG/ML SYRINGE 0.5 MG IV ×5 (00:38→19:44)
--- NOTE | 2025-10-06 01:01 | SUR.PHASEI ---
0100- Patient VSS. Sitting up in bed and eating ice chips. pain is controlled at this time. Patient states that pain is the worse when she is coughing. Detailed report called to Demi Maya RN. Awaiting a patient bed for transport.
--- NOTE | 2025-10-06 01:42 | SUR.PREOP ---
2300- At bedside of patient in ER. Reviewed preop checklist with patient. 2305- Transported patient via stretcher to OR with LAUREN Jean. 2308- Arrived to OR.
[2025-10-06] MEDS: PANTOPRAZOLE 40MG VIAL 40 MG IV ×2 (02:35→20:21)
[2025-10-06] MEDS: MORPHINE 2MG/ML SYRINGE 2 MG IV ×2 (02:35→07:47)
[2025-10-06] MEDS: 0.9 % SODIUM CHLORIDE 1000ML 1,000 ML 125 ML IV ×2 (02:35→12:18)
[2025-10-06] MEDS: SODIUM CHLORIDE 0.9% 10ML VIAL 10 ML IV (02:35)
--- NOTE | 2025-10-06 02:42 | P.HP_ITS ---
<Statement entered by Dyllan Domingo MD - 10/06/25 18:30> Rounded on patient after nurse practitioner. Personally examined and interviewed patient. Agree with exam findings and care plan as documented. History of Present Illness *Admission Date: 10/05/25 *History of present illness: 25-year-old female patient presents presents to the ER with abdominal pain. Had emergent on September 30 for preeclampsia. Was discharged home on 10/03 and on the day after discharge she began having some abdominal pain it worsened the following day so she presented to the ER for evaluation. She had some nausea associated with the pain. She was taking her pain medication that was prescribed at discharge but that did not improve her pain. Workup in the ER showed normal vital signs unremarkable lab work except LDH of 297. Urinalysis had 3+ blood. Imaging included CT abdomen pelvis showed findings suggestive of a developing complicated small bowel obstruction with close loop obstruction and or internal hernia. General surgery was consulted and she was taken to the OR. Postop report from Dr. Parrish all bowel was viable so there was no resection. Hernia was reduced and there was some fluid in the abdomen. She has been transferred to the floor for postop care. We did agree to admit with Dr. Parrish in consultation. [facility] Disclaimer: The information contained in this section may have been updated after the patient was seen, as this information can be updated by other users. Medical History DUNCAN (acute kidney injury) anxiety Delivery by elective section Request for sterilization Spontaneous rupture of membranes 37 weeks gestation of Active labor Preeclampsia LGA (large for gestational age) fetus affecting management of mother UTI (urinary tract infection) Hematuria with proteinuria Hypothyroidism complicating Maternal obesity affecting , antepartum Encounter for IUD insertion Acute blood loss anemia ADHD Hypothyroidism Asthma Nelida's disease Anxiety Depression Allergies Surgical History (Updated 10/06/25 @ 02:57 by Sheila Guzman APRN) H/O section S/P wisdom tooth extraction Family History Family/Other Cancer Mother Epilepsy Other Diabetes Social History Smoking Status: Unknown if ever smoked smoking status start date: vape alcohol intake: never substance use type: denies use current occupational status: unemployed Travel in the last 8 weeks?: None Have you lived/traveled outside US in past 30 days?: No Contact w/someone who lives/traveled outside US past 30 days?: No Exposure to someone with infectious disease in past 14 days?: No Do you have a fever (greater than 100.4 F or 38 C)?: No Have you tested positive for COVID-19?: No Exposed to someone with COVID-19 in past 14 days?: No Do you have a sore throat?: No Do you have a cough?: No Do you have any weakness?: No Are you experiencing any nausea/vomitting?: No Do you have any diarrhea?: No Are you experiencing any unusual bleeding?: No Do you have any muscle aches/pain?: No Do you have any abdominal pain?: Yes Are you experiencing loss of taste or smell?: No Other Medical History Have you received the Flu Vaccine for this season: No Have you received the Pneumonia Vaccine: No Review of Systems Constitutional Constitutional: Denies body ache(s), Denies chills and Denies fever(s) Eyes Eyes: Denies blurry vision ENT Ears, Nose, Mouth, and Throat: Denies hearing loss *Cardiovascular Cardiovascular: Denies chest pain, Denies dyspnea and Denies rapid heart rate *Respiratory Respiratory: Denies chest congestion, Denies cough and Denies dyspnea *Gastrointestinal Gastrointestinal: Reports abdominal pain, Denies diarrhea, Reports nausea and Reports vomiting *Genitourinary Genitourinary: Denies difficulty voiding and Denies dysuria *Musculoskeletal Musculoskeletal: Denies arthralgias and Denies back pain *Neurologic Neurologic: Denies confusion Psychiatric Psychiatric: Denies confusion Meds Home Medications and Allergies Home Medications ?Medication ?Instructions ?Recorded ?Confirmed ?Type fluoxetine 60 mg tablet 60 mg PO DAILY #30 tabs 07/2310/06/25 Rx levothyroxine 100 mcg tablet 100 mcg PO DAILY #30 tabs 09/08/25 10/06/25 Rx (Synthroid) cyclobenzaprine 5 mg tablet 5 mg PO BIDP PRN muscle sp asm 09/30/25 10/06/25 History montelukast 10 mg tablet 10 mg PO HS 09/30/25 5 History promethazine 12.5 mg tablet 12.5 mg PO Q6HP PRN vomiti ng 09/30/25 10/06/25 History acetaminophen 500 mg tablet 500 mg PO Q6H PRN fever or pain 10/03/25 10/06/25 Rx #30 tabs ferrous sulfate 325 mg (65 mg 325 mg PO DAILY #30 tabs 10/03/25 10/06/25 Rx iron) tablet,delayed release ibuprofen 800 mg tablet 800 mg PO Q8H PRN pain #60 t abs 10/03/25 10/06/25 Rx oxycodone 5 mg tablet 5 mg PO Q8H PRN pain #20 tab s 10/03/25 10/06/25 Rx sennosides 8.6 mg tablet (Senna 8.6 mg PO BIDP PRN Con stipation 10/03/25 10/06/25 Rx Lax) #60 tabs simethicone 125 mg tablet 125 mg PO DAILY PRN abdomina l 10/03/25 10/06/25 Rx distention #60 tabs New Prescriptions to Start Prescriptions: Allergies Allergy/AdvReac Type Severity Reaction Status Date / Time COVID-19 vaccine, Allergy Severe Anaphylaxis Verified 09/23/25 15:29 recombinant (Nova prochlorperazine (From Allergy Severe Other Verified 09/23/25 15:29 Compazine) influenza A (H5N1) virus AdvReac Severe Other Verified 09/23/25 15:29 vaccine mo ondansetron (From Zofran) AdvReac Nausea Verified 09/23/25 15:29 Exam Data for Last 24 hours Vital signs and Labs for Last 24 Hours: Temp Pulse Resp BP Pulse Ox O2 Del Method 97.8 F 88 17 128/76 98 Room Air 10/06/25 01:00 10/06/25 01:00 10/06/25 01:00 10/06/25 01:00 10/06/25 01:00 10/06/25 01:31 Laboratory Results - last 24 hr 10/05/25 19:29: WBC 6.8, RBC 3.96 L, Hgb 10.0 L, Hct 33.5 L, MCV 84.6, MCH 25.3 L, MCHC 29.9 L, RDW 15.9, Plt Count 291, MPV 9.4, Neut % (Auto) 79.2, Lymph % (Auto) 9.8 L, [place] % (Auto) 4.8, Eos % (Auto) 1.6, Baso % (Auto) 0.6, Neut # (Auto) 5.4, Lymph # (Auto) 0.7, [place] # (Auto) 0.3, Eos # (Auto) 0.1, Baso # (Auto) 0.0, PT 10.8, INR 0.97, Sodium 136, Potassium 4.2, Chloride 103, Carbon Dioxide 28, Anion Gap 9.2, BUN 15, Creatinine 1.10 H D, Estimated Creat Clear 133, Estimated GFR 60, Est GFR ( Amer) 73 D, Glucose 90, Calcium 8.8, Magnesium 2.0, Total Bilirubin 0.5, AST 31, ALT 13 D, Alkaline Phosphatase 142 H, Lactate Dehydrogenase 297 L, Total Protein 7.0, Albumin 3.9, Globulin 3.1, Albumin/Globulin Ratio 1.3 10/05/25 20:58: Urine Color Yellow, Urine Appearance Clear, Urine pH 8.0, Ur Specific [place] 1.010, Urine Protein Negative, Urine Glucose (UA) Negative, Urine Ketones Negative, Urine Blood 3+ A, Urine Nitrate Negative, Urine Bilirubin Negative, Urine Urobilinogen 0.2, Ur Leukocyte Esterase Negative, Urine RBC 20-50 I & O for Last 24 hours: Intake & Output 10/03/25 10/04/25 10/05/25 10/06/25 23:59 23:59 23:59 23:59 Intake Total 150 / 150 1400 / 1400 Balance 150 / 150 1400 / 1400 Weight 108.862 kg Constitutional Constitutional: no acute distress *Routine HEENT Exam Head: Present normocephalic Eye: Present PERRL ENT: Present mucous membranes moist *Routine Neck Exam Neck: Present supple *Routine Respiratory Exam Respiratory: Present CTA bilaterally *Routine Cardiovascular Exam Cardiovascular: Present RRR, Normal S1 and Normal S2 *Routine Abdominal Exam Abdominal: Present soft Comments: Sullivan in place for incision which is clean dry and intact without redness or drainage. Dressing intact for abdominal surgery is also clean dry and intact. *Routine Rectal Exam Rectal:: deferred *Routine Genitalia Exam Genitalia:: deferred *Routine Extremities Exam Extremities: Present pulses intact; Absent edema *Routine Skin Exam Skin: Present dry and warm *Routine Neurological Exam Neurological: Present alert, oriented X3 and moving all extremities H&P: Result Imaging and Cardiology CT scan - abdomen: Additional comments: Suggestive of developing complicated SBO with closed-loop obstruction and or internal hernia Assessment and Plan *Assessment and plan (1) Internal hernia: Status: Acute Category: Medical Code(s): K45.8 - Other specified abdominal hernia without obstruction or gangrene (2) Delivery by caesarean section: Status: Acute Category: Surgical (3) Hypothyroidism: Status: Acute Qualifiers: Hypothyroidism type: unspecified Qualified Code(s): E03.9 - Hypothyroidism, unspecified Category: Medical Code(s): E03.9 - Hypothyroidism, unspecified Plan Patient presents to the ER several days post section with acute abdominal pain. I discussed the case with the ER, her CT shows internal hernia with a possible small bowel obstruction. Recommended general surgery be consulted before accepting for admission. Dr. Parrish was consulted and patient was taken to surgery tonight. I did agree to admit postoperatively with Dr. Parrish on consult. Patient is doing well postop. Pain is significantly improved. She does have pain medications ordered as well as IV fluids, antibiotics, DVT and GI prophylaxis. Internal hernia?reduced per Dr. Parrish. No resection required. There was some fluid in the abdomen. She has pain medication IV fluids antibiotics and DVT and GI prophylaxis ordered. Delivery by section?seems to be doing well . Can consult OB if needed. Hypothyroidism?will resume Synthroid once allowed to have oral meds.
[2025-10-06] MEDS: KETOROLAC 30MG/ML VIAL 15 MG IV ×3 (04:34→18:14)
[2025-10-06] MEDS: METRONIDAZ/SOD CHL 500 MG/100 ML PIGGYBACK 100 MG IV ×2 (08:22→16:01)
[2025-10-06] MEDS: LEVOTHYROXINE 100MCG (0.1MG) TAB 100 MCG PO (08:57)
[2025-10-06] MEDS: SENNA 8.6MG TABLET 8.6 MG PO ×2 (08:57→20:22)
[2025-10-06 10:28] LABS: Microscopic,Cath URINE MICROSCOPIC (MICROSCOPIC)
--- NOTE | 2025-10-06 10:34 | HMH.PHAAMS2 ---
- Antimicrobial Stewardship Review culture & sensitivity review Stewardship interventions: culture & sensitivity review, reviewed - no change Comments: PATIENT ON ROCEPHIN/FLAGLY POST-OPERATIVELY FOR INTERNAL HERNIA REDUCTION, URINE CX PENDING.
[2025-10-06 10:36] LABS: Appearance,Urine/Cath CLEAR (Clear); Bilirubin,Cath Negative (Negative); Blood, Urine/Cath Negative (Negative); Color,Urine/Cath YELLOW (Yellow); Glucose,Urine/Cath (UA) Negative (Negative); Ketones,Urine/Cath Negative (Negative); Leukocyte Esterase,Cath Negative (Negative); Nitrate,Cath Negative (Negative); PH,Urine/Cath 8.0 (5.0-8.5); Protein,Urine/Cath Negative (Negative); Specific Gravity, Urine/Cath 1.010 (1.005-1.030); Urobilinogen,Cath 0.2 EU/dl (0.2)
[2025-10-06 10:44] LABS: Squamous Epithelial Ur./Cath Occasional #/hpf (0-5)
--- NOTE | 2025-10-06 11:51 | EXP.ANES.II ---
[facility] Anesthesia Record Part II Anesthesia Record Part II Discharge Time: 01:00 Destination: Medical Surgical Department PACU nurse assessment reviewed?: Yes Patient Condition:: Good Anesthesia Complications:: None Swallowing reflex intact?: Yes Airway Patency: Patent Cyanosis?: No Blood Pressure: 128/76 SaO2: 98 Respiratory Rate: 17 Pulse Rate: 88 Temperature: 97.8 F Mental Status: Alert & Oriented Pain level:: 7 Nausea and/or vomitting:: None Intake, IV Amount: 0 Hydration: Adequate
--- NOTE | 2025-10-06 13:52 | HMH.PTEV ---
Physical Therapy Evaluation Rehab PT IP Evaluation Start: 10/06/25 01:51 Freq: ONCE Status: Active Protocol: Document 10/06/25 13:48 PHOYUNG (Rec: 10/06/25 13:52 PHORNE [id number]) Subjective/History History History 25-year-old female patient presents presents to the ER with abdominal pain. Had emergent on September 30 for preeclampsia. Was discharged home on and on the day after discharge she began having some abdominal pain it worsened the following day so she presented to the ER for evaluation. She had some nausea associated with the pain. She was taking her pain medication that was prescribed at discharge but that did not improve her pain. Workup in the ER showed normal vital signs unremarkable lab work except LDH of 297. Urinalysis had 3+ blood. Imaging included CT abdomen pelvis showed findings suggestive of a developing complicated small bowel obstruction with close loop obstruction and or internal hernia. General surgery was consulted and she was taken to the OR. Postop report from Dr. Parrish all bowel was viable so there was no resection. Hernia was reduced and there was some fluid in the abdomen. She has been transferred to the floor for postop care. We did agree to admit with Dr. Parrish in consultation. Subjective Subjective Pt presents awake, supine, agrees to mobility assessment. She lives with her significant other, 4 [address] the home with rail, and she is generally independent with all mobility without the use of an AD at baseline. She does c/o pain in the abdomen which is worse with movement. [facility] How much help from another person do you currently need... Turning from your None back to your side while in a flat bed without using bedrails? Moving from lying on None back to sitting on the side of a flat bed without using bedrails? Moving to and from a None bed to a chair ( including a wheelchair)? Standing up from a None chair using your arms? (e.g., wheelchair, bedside chair) Walking in hospital A little room? Climbing 3-5 steps A little with a railing? Mobility Score 22 Mobility Level [facility] Mobility 7 Walk 25 feet or more Mobility Calculator Rehab PT IP Eval Objective Appearance Patient Behavior Appropriate Patient Orientation Person,Place,Time Difficulty following none instructions Speech Pattern Clear Ambulation Patient Able to Yes Ambulate Ambulation Observation IP General Gait Wide Based Gait,Shuffling Step Pattern Observation Ambulation Distance 3 (feet) Ambulation Ability Minimal x 1 (25% assist) Balance Ability to Arise Able, uses arms to help Sitting Balance Steady, safe Standing Balance Steady, wide stance Dynamic Sitting Good Balance Ability Dynamic Standing Fair Balance Ability Transfers Bed Transfer Ability Supervision/Stand by Chair Transfer Contact Guard/Hand Hold Ability Sit to Stand Bed Supervision/Stand by Transfer Ability Sit to Stand Chair Supervision/Stand by Transfer Ability Rehab PT IP prob,goals,plan Problems Date of Evaluation: 10/06/25 PT IP Problems Transfers,Gait,Self care Rehab Potential Rehab Potential Good Plan PT Intervention Plan Transfers,Gait,Self care,Therapeutic Exercise PT Plan Frequency Daily Duration LOS Discharge Goals Bed Transfer Ability Independent Sit to Stand Chair Independent Transfer Ability Ambulation Assistive None Device Ambulation Distance 30 (feet) Discharge Plan PT Discharge Plan Pt is currently appropriate to return home once medically stable for d/c. Skilled therapy is indicated to aid pt improvement in transfers and ambulation in order to return to [facility]. Recommend BSC for home use to ease transfers and safety in toileting. Eval Complexity Eval Charge Codes 76411 - Moderate Complexity PHYSICIAN CERTIFICATION: I certify the specified therapy services for Sheila Harris are required, authorized, and reviewed every 30 days.
--- NOTE | 2025-10-06 14:15 | EXP.SURG.PN ---
Subjective Narrative: Patient underwent exploratory laparotomy with freeing of intestinal obstruction secondary to internal hernia created by inflammatory band of omentum into the right pelvis. She did not require resection. This was completed just after midnight this morning by Dr. Parrish. She did not require a nasogastric tube. She states that she feels sore but much better than preoperatively. She denies nausea. She is taking some clear liquids. Exam Data for Last 24 hours Vital signs and Labs for Last 24 Hours: Temp Pulse Resp BP Pulse Ox O2 Del Method 98.7 F 88 20 146/89 H 99 Room Air 10/06/25 12:00 10/06/25 12:00 10/06/25 12:00 10/06/25 12:00 10/06/25 12:00 10/06/25 13:00 Laboratory Results - last 24 hr 10/05/25 19:29: WBC 6.8, RBC 3.96 L, Hgb 10.0 L, Hct 33.5 L, MCV 84.6, MCH 25.3 L, MCHC 29.9 L, RDW 15.9, Plt Count 291, MPV 9.4, Neut % (Auto) 79.2, Lymph % (Auto) 9.8 L, [place] % (Auto) 4.8, Eos % (Auto) 1.6, Baso % (Auto) 0.6, Neut # (Auto) 5.4, Lymph # (Auto) 0.7, [place] # (Auto) 0.3, Eos # (Auto) 0.1, Baso # (Auto) 0.0, PT 10.8, INR 0.97, Sodium 136, Potassium 4.2, Chloride 103, Carbon Dioxide 28, Anion Gap 9.2, BUN 15, Creatinine 1.10 H D, Estimated Creat Clear 133, Estimated GFR 60, Est GFR ( Amer) 73 D, Glucose 90, Calcium 8.8, Magnesium 2.0, Total Bilirubin 0.5, AST 31, ALT 13 D, Alkaline Phosphatase 142 H, Lactate Dehydrogenase 297 L, Total Protein 7.0, Albumin 3.9, Globulin 3.1, Albumin/Globulin Ratio 1.3 10/05/25 20:58: Urine Color Yellow, Urine Appearance Clear, Urine pH 8.0, Ur Specific [place] 1.010, Urine Protein Negative, Urine Glucose (UA) Negative, Urine Ketones Negative, Urine Blood 3+ A, Urine Nitrate Negative, Urine Bilirubin Negative, Urine Urobilinogen 0.2, Ur Leukocyte Esterase Negative, Urine RBC 20-50 10/05/25 23:12: Urine Color Yellow, Urine Appearance Clear, Urine pH 8.0, Ur Specific [place] 1.010, Urine Protein Negative, Urine Glucose (UA) Negative, Urine Ketones Negative, Urine Blood Negative, Urine Nitrate Negative, Urine Bilirubin Negative, Urine Urobilinogen 0.2, Ur Leukocyte Esterase Negative, Urine RBC None, Urine WBC None, Ur Squamous Epith Cells Occasional, Urine Bacteria None I & O for Last 24 hours: Intake & Output 10/04/25 10/05/25 10/06/25 10/07/25 11:59 11:59 11:59 11:59 Intake Total 2650 / 2650 Output Total 750 / 1150 400 / 400 Balance 1900 / 1500 -400 / -400 Weight 239 lb 15.994 oz *Routine Abdominal Exam Abdominal: Present soft Comments: Incision intact and dry Progress Note: A&P Assessment and plan (1) Internal hernia: Status: Acute Assessment and plan: Continue to limit to clear liquids at this time. (2) Delivery by caesarean section: Status: Acute (3) Hypothyroidism: Status: Acute
[2025-10-06] MEDS: SIMETHICONE 80MG CHEWABLE TABLET 160 MG PO (15:04)
--- NOTE | 2025-10-06 17:29 | PC.NURSE ---
Pt is A&Ox4. Vital signs stable tolerating room air. IV abx and fluids infusing per DEC. Pt has complained of abdominal pain this shift. Treated with pain medication and simethicone per DEC. Abdominal incisions with dressings and rosa m in place c/d/i. Pt sat up in the chair this shift and has been encouraged to ambulate but has increased pain with ambulation. Pt has tolerated clear liquids. Pt state she is passing flatus but has not had a BM. Pt resting comfortably sitting up in bed with no further needs voiced at this time. Call light within reach.
[2025-10-06] MEDS: FLUOXETINE 20MG CAPSULE 60 MG PO (20:22)
[2025-10-07] VITALS (16 sets, daily range): BP systolic 121–158; BP diastolic 66–93; PULSE 67–90; RESP 16–18; TEMP 36.7–37.1; O2SAT 94–98; BMI 40.9
[2025-10-07] MEDS: HYDROMORPHONE 2MG/ML SYRINGE 0.5 MG IV ×6 (00:11→22:19)
[2025-10-07] MEDS: 0.9 % SODIUM CHLORIDE 1000ML 1,000 ML 125 ML IV ×2 (00:12→08:33)
--- NOTE | 2025-10-07 04:15 | PC.NURSE ---
Pt is A&OX4 and has tolerated room air. Dressing over midline incision has remained c/d/i. Pt has complained of pain multiple times and has been medicated per MAR. NS has remained infusing at 125 ml/hr. She has required x1 assist to get up to bedside. Family has remained at bedside. No other complaints at this time, call light within reach.
[2025-10-07] MEDS: LEVOTHYROXINE 100MCG (0.1MG) TAB 100 MCG PO (06:01)
[2025-10-07 06:39] LABS: Hematocrit 23.4 % (37.0-47.0); Immature Granulocytes % 2.0 %; Mean Corpuscular HGB Conc 29.5 g/dL (31.8-35.4); Mean Corpuscular Hemoglobin 25.3 pg (27.0-31.2); Mean Corpuscular Volume 85.7 fl (81-99); Nucleated Red Blood Cells % 0 %; Platelet Count 191 K/mm3 (142-424); Red Blood Count 2.73 M/mm3 (4.20-5.40); Red Cell Distribution Width-SD 47.5 fL; White Blood Count 4.1 K/mm3 (4.8-10.8)
[2025-10-07 06:59] LABS: Hemoglobin 6.9 g/dL (12.2-16.2)
--- NOTE | 2025-10-07 07:00 | PC.NURSE ---
Lab called to report a critical HGB of 6.9. Hospitalist notified.
[2025-10-07 07:17] LABS: Albumin Level 2.6 g/dl (3.5-5.0); Chloride 109 mmol/L (98-107); Sodium 131 mmol/L (136-145)
[2025-10-07 07:18] LABS: Potassium 3.9 mmoL/L (3.5-5.1)
[2025-10-07 07:20] LABS: Alanine Aminotransferase 6 U/L (12-78); Anion Gap 2.9 mEq/L (5-15); Aspartate Amino Transferase 20 U/L (14-36); Blood Urea Nitrogen 13 mg/dl (7-17); Carbon Dioxide 23 mmol/L (22.0-30.0); Creatinine Clearance Estimated 147 mL/min (50-200); Creatinine,Serum 1.00 mg/dl (0.52-1.04); Estimated Glomerular Filt Rate 67 ml/min (>60); GFR (African American) 81 ML/MIN (>60)
[2025-10-07 07:21] LABS: Albumin/Globulin Ratio 1.1 (1.1-1.8); Alkaline Phosphatase 96 U/L (38-126); Bilirubin,Total 0.4 mg/dl (0.2-1.3); Calcium 7.6 mg/dl (8.4-10.2); Globulin 2.3 g/dL (1.3-3.2); Glucose 79 mg/dl (74-100); Total Protein,Serum 4.9 g/dl (6.3-8.2)
[2025-10-07] MEDS: SIMETHICONE 80MG CHEWABLE TABLET 160 MG PO ×3 (07:50→20:56)
--- NOTE | 2025-10-07 08:11 | EXP.SURG.PN ---
Subjective Narrative: Patient complains of soreness within the incision. Overall feels better since prior to surgery. Taking clear liquids. Passing some gas. No bowel movements. No nausea. Exam Data for Last 24 hours Vital signs and Labs for Last 24 Hours: Temp Pulse Resp BP Pulse Ox O2 Del Method 98.0 F 89 16 121/66 95 Room Air 10/07/25 04:00 10/07/25 04:00 10/07/25 04:00 10/07/25 04:00 10/07/25 04:00 10/07/25 06:40 Laboratory Results - last 24 hr 10/05/25 23:12: Urine Color Yellow, Urine Appearance Clear, Urine pH 8.0, Ur Specific [place] 1.010, Urine Protein Negative, Urine Glucose (UA) Negative, Urine Ketones Negative, Urine Blood Negative, Urine Nitrate Negative, Urine Bilirubin Negative, Urine Urobilinogen 0.2, Ur Leukocyte Esterase Negative, Urine RBC None, Urine WBC None, Ur Squamous Epith Cells Occasional, Urine Bacteria None 10/07/25 05:56: WBC 4.1 L D, RBC 2.73 L D, Hgb 6.9 L, Hct 23.4 L, MCV 85.7, MCH 25.3 L, MCHC 29.5 L, RDW 16.2, Plt Count 191 D, MPV 9.6, Neut % (Auto) 69.3, Lymph % (Auto) 20.4, [place] % (Auto) 6.4, Eos % (Auto) 1.7, Baso % (Auto) 0.2, Neut # (Auto) 2.8, Lymph # (Auto) 0.8, [place] # (Auto) 0.3, Eos # (Auto) 0.1, Baso # (Auto) 0.0, Sodium 131 L, Potassium 3.9, Chloride 109 H, Carbon Dioxide 23, Anion Gap 2.9 L, BUN 13, Creatinine 1.00, Estimated Creat Clear 147, Estimated GFR 67, Est GFR ( Amer) 81, Glucose 79, Calcium 7.6 L, Total Bilirubin 0.4, AST 20 D, ALT 6 L D, Alkaline Phosphatase 96, Total Protein 4.9 L D, Albumin 2.6 L D, Globulin 2.3, Albumin/Globulin Ratio 1.1 10/07/25 07:20: Crossmatch (AHG) See Detail I & O for Last 24 hours: Intake & Output 10/04/25 10/05/25 10/06/25 10/07/25 11:59 11:59 11:59 11:59 Intake Total 3300 / 3300 1999 / 2000 Output Total 750 / 1150 900 / 900 Balance 2550 / 2150 1100 / 1100 Weight 239 lb 15.994 oz 239 lb 15.994 oz *Routine Abdominal Exam Abdominal: Present soft Comments: Some incisional tenderness. Diffusely nontender. Progress Note: A&P Assessment and plan (1) Internal hernia: Status: Acute Assessment and plan: Essentially only postoperative day #1 still as she had just gotten out of the operating room after midnight yesterday. Continue to limit to clear liquids. Ambulate. Possibly advance to full liquids tomorrow. (2) Delivery by caesarean section: Status: Acute (3) Hypothyroidism: Status: Acute
[2025-10-07] MEDS: SENNA 8.6MG TABLET 8.6 MG PO ×2 (08:33→20:56)
[2025-10-07] MEDS: 0.9 % SODIUM CHLORIDE 250 ML 25 ML IV (11:17)
--- NOTE | 2025-10-07 14:19 | EXP.PN ---
Subjective *Date: 10/07/25 *Time: 15:00 Interval history: Patient doing well postop, continues to have abdominal tenderness which is within expected limits. Having flatus, no bowel meds yet. Advance diet to clear liquids per surgery, consider liquid diet in the morning. Exam Data for Last 24 hours Vital signs and Labs for Last 24 Hours: Temp Pulse Resp BP Pulse Ox O2 Del Method 98.3 F 80 18 147/84 H 96 Room Air 10/07/25 13:45 10/07/25 13:45 10/07/25 13:45 10/07/25 13:45 10/07/25 13:45 10/07/25 11:00 Laboratory Results - last 24 hr 10/07/25 05:56: WBC 4.1 L D, RBC 2.73 L D, Hgb 6.9 L, Hct 23.4 L, MCV 85.7, MCH 25.3 L, MCHC 29.5 L, RDW 16.2, Plt Count 191 D, MPV 9.6, Neut % (Auto) 69.3, Lymph % (Auto) 20.4, [place] % (Auto) 6.4, Eos % (Auto) 1.7, Baso % (Auto) 0.2, Neut # (Auto) 2.8, Lymph # (Auto) 0.8, [place] # (Auto) 0.3, Eos # (Auto) 0.1, Baso # (Auto) 0.0, Sodium 131 L, Potassium 3.9, Chloride 109 H, Carbon Dioxide 23, Anion Gap 2.9 L, BUN 13, Creatinine 1.00, Estimated Creat Clear 147, Estimated GFR 67, Est GFR ( Amer) 81, Glucose 79, Calcium 7.6 L, Total Bilirubin 0.4, AST 20 D, ALT 6 L D, Alkaline Phosphatase 96, Total Protein 4.9 L D, Albumin 2.6 L D, Globulin 2.3, Albumin/Globulin Ratio 1.1 10/07/25 07:20: Blood Type O Positive, Antibody Screen Negative, Crossmatch (AHG) See Detail I & O for Last 24 hours: Intake & Output 10/04/25 10/05/25 10/06/25 10/07/25 23:59 23:59 23:59 23:59 Intake Total 150 / 150 4900 / 5150 2290 / 2290 Output Total 1650 / 1650 1100 / 1100 Balance 150 / 150 3250 / 3500 1190 / 1190 Weight 108.862 kg 108.862 kg 108.862 kg Constitutional Constitutional: no acute distress and obese *Routine HEENT Exam Head: Present normocephalic Eye: Present EOMI and PERRL ENT: Present mucous membranes moist *Routine Neck Exam Neck: Present supple; Absent lymphadenopathy *Routine Respiratory Exam Respiratory: Present CTA bilaterally *Routine Cardiovascular Exam Cardiovascular: Present RRR *Routine Abdominal Exam Abdominal: Present soft Comments: Some incisional tenderness. Diffusely nontender. *Routine Extremities Exam Extremities: Absent cyanosis, clubbing or edema *Routine Skin Exam Skin: Present warm; Absent rash *Routine Neurological Exam Neurological: Present alert and oriented X3 Assessment and Plan *Assessment and plan (1) Internal hernia: Status: Acute Category: Medical Code(s): K45.8 - Other specified abdominal hernia without obstruction or gangrene (2) Delivery by caesarean section: Status: Acute Category: Surgical (3) Hypothyroidism: Status: Acute Qualifiers: Hypothyroidism type: unspecified Qualified Code(s): E03.9 - Hypothyroidism, unspecified Category: Medical Code(s): E03.9 - Hypothyroidism, unspecified Plan Sheila Miles is a 25-year-old female who patient presented to the ER several days post section with acute abdominal pain. Her CT shows internal hernia with a possible small bowel obstruction. Recommended general surgery be consulted before accepting for admission. Dr. Parrish was consulted and patient was taken to surgery [facility]. Patient is doing well postop. Pain is significantly improved. Internal hernia?reduced per Dr. Parrish on 10/06/2025. No resection required. There was some fluid in the abdomen. ? Continue Toradol, Dilaudid as needed for pain control. ? General Surgery following, advanced to clear liquid diet. Will consider liquid diet tomorrow. ? Having flatus, no balance yet. Potassium, sodium stable. Delivery by section?seems to be doing well . Can consult OB if needed. Hypothyroidism?continue home levothyroxine 100 mcg daily. TSH normal in July 2025.
[2025-10-07 15:54] LABS: Hematocrit 28.3 % (37.0-47.0)
[2025-10-07 16:11] LABS: Hemoglobin 8.6 g/dL (12.2-16.2)
[2025-10-07] MEDS: HYDROCODONE/APAP 5/325 MG TABLET 1 TAB PO (17:11)
[2025-10-07] MEDS: KETOROLAC 30MG/ML VIAL 30 MG IV (17:12)
--- NOTE | 2025-10-07 18:27 | PC.NURSE ---
pt a&ox4. midline incision dressing remains c/d/i. c section incision rosa m in place and open to air. pt has ambulated numerous times to the BR with standby assistance. pt also sat up to the chair for about an hour. pt has complained of abd pain and gas pain, treated with medication per mar. NS infusing @125ml/hr. family at bedside. no needs at this time. call light within reach.
[2025-10-07] MEDS: FLUOXETINE 20MG CAPSULE 60 MG PO (20:55)
[2025-10-07] MEDS: SODIUM CHLORIDE 0.9% 10ML VIAL 10 ML IV (20:56)
[2025-10-07] MEDS: PANTOPRAZOLE 40MG VIAL 40 MG IV (20:56)
[2025-10-08] VITALS: BP 149/84; PULSE 67; RESP 16; TEMP 36.7; O2SAT 95
[2025-10-08 04:00] VITALS: BP 97/68; PULSE 67; RESP 14; O2SAT 93; BMI 40.9
[2025-10-08] MEDS: HYDROCODONE/APAP 5/325 MG TABLET 1 TAB PO ×2 (06:49→20:19)
[2025-10-08] MEDS: LEVOTHYROXINE 100MCG (0.1MG) TAB 100 MCG PO (07:02)
--- NOTE | 2025-10-08 07:41 | EXP.SURG.PN ---
Subjective Patient reports: tolerating liquids well Exam Data for Last 24 hours Vital signs and Labs for Last 24 Hours: Temp Pulse Resp BP Pulse Ox O2 Del Method O2 Flow Rate 98.0 F 67 14 97/68 L 93 L Room Air 2 10/08/25 00:00 10/08/25 04:00 10/08/25 04:00 10/08/25 04:00 10/08/25 04:00 10/08/25 06:37 10/08/25 04:00 Laboratory Results - last 24 hr 10/07/25 07:20: Blood Type O Positive, Antibody Screen Negative, Crossmatch (AHG) See Detail 10/07/25 15:45: Hgb 8.6 L D, Hct 28.3 L I & O for Last 24 hours: Intake & Output 10/05/25 10/06/25 10/07/25 10/08/25 11:59 11:59 11:59 11:59 Intake Total 3300 / 3300 3640 / 3640 2030.833 / 2030.833 Output Total 750 / 1150 1600 / 1600 400 / 400 Balance 2550 / 2150 2040 / 2040 1630.833 / 1630.833 Weight 239 lb 15.994 oz 239 lb 15.994 oz 239 lb 15.994 oz Constitutional Constitutional: no acute distress *Routine Respiratory Exam Respiratory: Absent respiratory distress *Routine Cardiovascular Exam Cardiovascular: Absent tachycardia *Routine Abdominal Exam Abdominal: Present soft Comments: dressing in place Progress Note: A&P Assessment and plan (1) Internal hernia: Status: Acute Assessment and plan: stable POD 2.5 s/p ex-lap with JAVIER Full liquid diet ordered Increase ambulation (2) Delivery by caesarean section: Status: Acute
[2025-10-08 08:00] VITALS: BP 146/80; PULSE 75; RESP 18; TEMP 36.6; O2SAT 96
[2025-10-08] MEDS: SENNA 8.6MG TABLET 8.6 MG PO ×2 (08:04→20:20)
[2025-10-08] MEDS: KETOROLAC 30MG/ML VIAL 30 MG IV ×3 (08:08→20:19)
[2025-10-08 12:05] LABS: Hematocrit 26.2 % (37.0-47.0); Hemoglobin 8.2 g/dL (12.2-16.2); Immature Granulocytes % 2.1 %; Mean Corpuscular HGB Conc 31.3 g/dL (31.8-35.4); Mean Corpuscular Hemoglobin 26.7 pg (27.0-31.2); Mean Corpuscular Volume 85.3 fl (81-99); Nucleated Red Blood Cells % 0 %; Platelet Count 176 K/mm3 (142-424); Red Blood Count 3.07 M/mm3 (4.20-5.40); Red Cell Distribution Width-SD 49.0 fL; White Blood Count 3.9 K/mm3 (4.8-10.8)
[2025-10-08 12:30] LABS: Albumin Level 2.9 g/dl (3.5-5.0); Chloride 108 mmol/L (98-107); Potassium 4.0 mmoL/L (3.5-5.1); Sodium 134 mmol/L (136-145)
[2025-10-08 12:33] LABS: Alanine Aminotransferase 7 U/L (12-78); Albumin/Globulin Ratio 1.2 (1.1-1.8); Alkaline Phosphatase 99 U/L (38-126); Anion Gap 5.0 mEq/L (5-15); Aspartate Amino Transferase 18 U/L (14-36); Bilirubin,Total 0.3 mg/dl (0.2-1.3); Blood Urea Nitrogen 11 mg/dl (7-17); Calcium 8.0 mg/dl (8.4-10.2); Carbon Dioxide 25 mmol/L (22.0-30.0); Creatinine Clearance Estimated 163 mL/min (50-200); Creatinine,Serum 0.90 mg/dl (0.52-1.04); Estimated Glomerular Filt Rate 76 ml/min (>60); GFR (African American) 92 ML/MIN (>60); Globulin 2.4 g/dL (1.3-3.2); Glucose 84 mg/dl (74-100); Total Protein,Serum 5.3 g/dl (6.3-8.2)
[2025-10-08 12:34] LABS: Magnesium 1.9 mg/dl (1.6-2.3)
--- NOTE | 2025-10-08 13:11 | P.PN_ITS ---
Subjective *Date: 10/08/25 *Time: 13:11 Interval history: Patient slightly improving postop, advance to full liquid diet with good toleration. Encouraging ambulation. Having flatus, no bowel movements yet. Exam Data for Last 24 hours Vital signs and Labs for Last 24 Hours: Temp Pulse Resp BP Pulse Ox O2 Del Method O2 Flow Rate 97.8 F 75 18 146/80 H 96 Room Air 2 10/08/25 08:00 10/08/25 08:00 10/08/25 08:00 10/08/25 08:00 10/08/25 08:00 10/08/25 11:00 10/08/25 04:00 Laboratory Results - last 24 hr 10/07/25 07:20: Crossmatch (AHG) See Detail 10/07/25 15:45: Hgb 8.6 L D, Hct 28.3 L 10/08/25 11:56: WBC 3.9 L, RBC 3.07 L, Hgb 8.2 L, Hct 26.2 L, MCV 85.3, MCH 26.7 L, MCHC 31.3 L, RDW 16.3, Plt Count 176, MPV 9.1, Neut % (Auto) 66.7, Lymph % (Auto) 21.4, [place] % (Auto) 5.9, Eos % (Auto) 3.4, Baso % (Auto) 0.5, Neut # (Auto) 2.6, Lymph # (Auto) 0.8, [place] # (Auto) 0.2, Eos # (Auto) 0.1, Baso # (Auto) 0.0, Sodium 134 L, Potassium 4.0, Chloride 108 H, Carbon Dioxide 25, Anion Gap 5.0, BUN 11, Creatinine 0.90, Estimated Creat Clear 163, Estimated GFR 76, Est GFR ( Amer) 92, Glucose 84, Calcium 8.0 L, Magnesium 1.9, Total Bilirubin 0.3, AST 18, ALT 7 L, Alkaline Phosphatase 99, Total Protein 5.3 L, Albumin 2.9 L D, Globulin 2.4, Albumin/Globulin Ratio 1.2 I & O for Last 24 hours: Intake & Output 10/05/25 10/06/25 10/07/25 10/08/25 23:59 23:59 23:59 23:59 Intake Total 150 / 150 4900 / 5150 3920.833 / 3920.833 480 / 480 Output Total 1650 / 1650 1100 / 1100 0 / 0 Balance 150 / 150 3250 / 3500 2820.833 / 2820.833 480 / 480 Weight 108.862 kg 108.862 kg 108.862 kg 108.862 kg Microbiology Reports for the Last 24 Hours: Microbiology 10/05/25 20:58 Urine,Clean Catch Urine Culture - Final NO GROWTH AFTER 48 HOURS Constitutional Constitutional: no acute distress and obese *Routine Respiratory Exam Respiratory: Absent respiratory distress *Routine Cardiovascular Exam Cardiovascular: Absent tachycardia *Routine Abdominal Exam Abdominal: Present soft Comments: dressing in place Assessment and Plan *Assessment and plan (1) Internal hernia: Status: Acute Category: Medical Code(s): K45.8 - Other specified abdominal hernia without obstruction or gangrene (2) Delivery by caesarean section: Status: Acute Category: Surgical (3) Hypothyroidism: Status: Acute Qualifiers: Hypothyroidism type: unspecified Qualified Code(s): E03.9 - Hypothyroidism, unspecified Category: Medical Code(s): E03.9 - Hypothyroidism, unspecified Plan Sheila Miles is a 25-year-old female who patient presented to the ER several days post section with acute abdominal pain. Her CT shows internal hernia with a possible small bowel obstruction. Recommended general surgery be consulted before accepting for admission. Dr. Parrish was consulted and patient was taken to surgery. Patient is doing well postop. Pain is significantly improved. Internal hernia?reduced per Dr. Parrish on 10/06/2025. No resection required. There was some fluid in the abdomen. ?Today patient tolerating clear liquid diet, advanced to full liquids with good toleration. Having flatus. No bowel movements. ? Switched to [place] 5 to 10 mg for pain as needed, continue Toradol, Dilaudid for breakthrough pain. ? General Surgery following, advance diet to full liquid diet. Advised to continue to monitor inpatient. ? Having flatus, no bowel movement yet. Potassium, sodium stable. ? Encouraging ambulation. Delivery by section?seems to be doing well . Can consult OB if needed. Hypothyroidism?continue home levothyroxine 100 mcg daily. TSH normal in July 2025.
[2025-10-08] MEDS: HYDROCODONE 10MG/APAP 325MG TAB 1 TAB PO (14:07)
[2025-10-08 14:08] VITALS: BMI 40.9
[2025-10-08] MEDS: SIMETHICONE 80MG CHEWABLE TABLET 160 MG PO ×2 (14:11→20:20)
[2025-10-08 16:00] VITALS: BP 145/92; PULSE 64; RESP 18; TEMP 36.8; O2SAT 96
[2025-10-08] MEDS: 0.9 % SODIUM CHLORIDE 1000ML 1,000 ML 125 ML IV (17:53)
--- NOTE | 2025-10-08 17:58 | PC.NURSE ---
Addendum entered by Oxana Loyola RN 10/08/25 18:07: rash around incision outlined with marker Original Note: Hospitalist notified of raised rash that itches on pt trunk, around midline incision, and under breasts. new order for benadryl placed.
[2025-10-08 20:00] VITALS: BP 131/74; PULSE 63; RESP 16; TEMP 36.8; O2SAT 95
[2025-10-08] MEDS: PANTOPRAZOLE 40MG VIAL 40 MG IV (20:18)
[2025-10-08] MEDS: SODIUM CHLORIDE 0.9% 10ML VIAL 10 ML IV (20:19)
[2025-10-08] MEDS: FLUOXETINE 20MG CAPSULE 60 MG PO (20:20)
[2025-10-08] MEDS: HYDROMORPHONE 2MG/ML SYRINGE 0.5 MG IV (23:19)
[2025-10-08 23:31] VITALS: BP 132/84; PULSE 77; RESP 18; TEMP 36.8; O2SAT 97
[2025-10-09 04:00] VITALS: BP 126/74; PULSE 69; RESP 18; TEMP 36.6; O2SAT 95; BMI 40.6
[2025-10-09] MEDS: LEVOTHYROXINE 100MCG (0.1MG) TAB 100 MCG PO (06:13)
--- NOTE | 2025-10-09 07:54 | P.PN_ITS ---
Subjective Narrative: Patient complains of abdominal pain. Describes rash on her abdomen. Tender mostly around her incision. Exam Data for Last 24 hours Vital signs and Labs for Last 24 Hours: Temp Pulse Resp BP Pulse Ox O2 Del Method O2 Flow Rate 97.8 F 69 18 126/74 95 Room Air 2 10/09/25 04:00 10/09/25 04:00 10/09/25 04:00 10/09/25 04:00 10/09/25 04:00 10/09/25 06:33 10/08/25 04:00 Laboratory Results - last 24 hr 10/08/25 11:56: WBC 3.9 L, RBC 3.07 L, Hgb 8.2 L, Hct 26.2 L, MCV 85.3, MCH 26.7 L, MCHC 31.3 L, RDW 16.3, Plt Count 176, MPV 9.1, Neut % (Auto) 66.7, Lymph % (Auto) 21.4, [place] % (Auto) 5.9, Eos % (Auto) 3.4, Baso % (Auto) 0.5, Neut # (Auto) 2.6, Lymph # (Auto) 0.8, [place] # (Auto) 0.2, Eos # (Auto) 0.1, Baso # (Auto) 0.0, Sodium 134 L, Potassium 4.0, Chloride 108 H, Carbon Dioxide 25, Anion Gap 5.0, BUN 11, Creatinine 0.90, Estimated Creat Clear 163, Estimated GFR 76, Est GFR ( Amer) 92, Glucose 84, Calcium 8.0 L, Magnesium 1.9, Total Bilirubin 0.3, AST 18, ALT 7 L, Alkaline Phosphatase 99, Total Protein 5.3 L, Albumin 2.9 L D, Globulin 2.4, Albumin/Globulin Ratio 1.2 I & O for Last 24 hours: Intake & Output 10/06/25 10/07/25 10/08/25 10/09/25 11:59 11:59 11:59 11:59 Intake Total 3300 / 3300 3640 / 3640 2590.000 / 2590.000 880 / 880 Output Total 750 / 1150 1600 / 1600 400 / 400 0 / 0 Balance 2550 / 2150 2040 / 2040 2190.000 / 2190.000 880 / 880 Weight 239 lb 15.994 oz 239 lb 15.994 oz 239 lb 15.994 oz 238 lb 3.2 oz Microbiology Reports for the Last 24 Hours: Microbiology 10/05/25 20:58 Urine,Clean Catch Urine Culture - Final NO GROWTH AFTER 48 HOURS *Routine Abdominal Exam Abdominal: Present soft Comments: Incision clean however there is surrounding erythema Progress Note: A&P Assessment and plan (1) Internal hernia: Status: Acute (2) Delivery by caesarean section: Status: Acute (3) Hypothyroidism: Status: Acute Assessment and Plan Assessment and Plan for All Diagnoses:: Erythema surrounding incision. Possible localized wound infection versus bruising versus reactive. Concerning with pain. Check CBC. May need antibiotics. If erythema and symptoms consistent with wound infection or progressive could require opening of the incision.
[2025-10-09] MEDS: SENNA 8.6MG TABLET 8.6 MG PO ×2 (08:10→21:02)
[2025-10-09] MEDS: HYDROCODONE 10MG/APAP 325MG TAB 1 TAB PO (08:10)
[2025-10-09] MEDS: KETOROLAC 30MG/ML VIAL 30 MG IV (08:15)
[2025-10-09 10:48] LABS: Hematocrit 28.4 % (37.0-47.0); Hemoglobin 8.7 g/dL (12.2-16.2); Immature Granulocytes % 1.2 %; Mean Corpuscular HGB Conc 30.6 g/dL (31.8-35.4); Mean Corpuscular Hemoglobin 26.3 pg (27.0-31.2); Mean Corpuscular Volume 85.8 fl (81-99); Nucleated Red Blood Cells % 0 %; Platelet Count 203 K/mm3 (142-424); Red Blood Count 3.31 M/mm3 (4.20-5.40); Red Cell Distribution Width-SD 48.9 fL; White Blood Count 4.1 K/mm3 (4.8-10.8)
[2025-10-09 10:54] LABS: Alanine Aminotransferase 9 U/L (12-78); Albumin Level 3.3 g/dl (3.5-5.0); Albumin/Globulin Ratio 1.3 (1.1-1.8); Alkaline Phosphatase 120 U/L (38-126); Anion Gap 10.2 mEq/L (5-15); Aspartate Amino Transferase 26 U/L (14-36); Bilirubin,Total 0.6 mg/dl (0.2-1.3); Blood Urea Nitrogen 12 mg/dl (7-17); Calcium 8.5 mg/dl (8.4-10.2); Carbon Dioxide 24 mmol/L (22.0-30.0); Chloride 107 mmol/L (98-107); Creatinine Clearance Estimated 132 mL/min (50-200); Creatinine,Serum 1.10 mg/dl (0.52-1.04); Estimated Glomerular Filt Rate 60 ml/min (>60); GFR (African American) 73 ML/MIN (>60); Globulin 2.5 g/dL (1.3-3.2); Glucose 85 mg/dl (74-100); Magnesium 1.7 mg/dl (1.6-2.3); Potassium 4.2 mmoL/L (3.5-5.1); Sodium 137 mmol/L (136-145); Total Protein,Serum 5.8 g/dl (6.3-8.2)
[2025-10-09 11:39] VITALS: BP 133/49; PULSE 58; RESP 18; TEMP 36.5; O2SAT 96
--- NOTE | 2025-10-09 14:19 | P.PN_ITS ---
Subjective *Date: 10/09/25 *Time: 14:19 Interval history: Patient feels slightly better today, tolerating full liquid diets with intermittent abdominal pain. There is erythematous patches throughout her abdomen especially around incisional site. Will trial prednisone, and if no response will consider antibiotics. Seems to be pruritic at this time. Exam Data for Last 24 hours Vital signs and Labs for Last 24 Hours: Temp Pulse Resp BP Pulse Ox O2 Del Method O2 Flow Rate 97.7 F 58 L 18 133/49 L 96 Room Air 2 10/09/25 11:39 10/09/25 11:39 10/09/25 11:39 10/09/25 11:39 10/09/25 11:39 10/09/25 13:00 10/08/25 04:00 Laboratory Results - last 24 hr 10/09/25 10:28: WBC 4.1 L, RBC 3.31 L, Hgb 8.7 L, Hct 28.4 L, MCV 85.8, MCH 26.3 L, MCHC 30.6 L, RDW 16.0, Plt Count 203, MPV 9.3, Neut % (Auto) 70.4, Lymph % (Auto) 19.5, [place] % (Auto) 4.7, Eos % (Auto) 4.0, Baso % (Auto) 0.2, Neut # (Auto) 2.9, Lymph # (Auto) 0.8, [place] # (Auto) 0.2, Eos # (Auto) 0.2, Baso # (Auto) 0.0, Sodium 137, Potassium 4.2, Chloride 107, Carbon Dioxide 24, Anion Gap 10.2, BUN 12, Creatinine 1.10 H D, Estimated Creat Clear 132, Estimated GFR 60, Est GFR ( Amer) 73 D, Glucose 85, Calcium 8.5, Magnesium 1.7 D, Total Bilirubin 0.6, AST 26 D, ALT 9 L D, Alkaline Phosphatase 120, Total Protein 5.8 L, Albumin 3.3 L D, Globulin 2.5, Albumin/Globulin Ratio 1.3 I & O for Last 24 hours: Intake & Output 10/06/25 10/07/25 10/08/25 10/09/25 23:59 23:59 23:59 23:59 Intake Total 4900 / 5150 4000.000 / 4000.000 1360 / 1360 1000 / 1000 Output Total 1650 / 1650 1100 / 1100 0 / 0 0 / 0 Balance 3250 / 3500 2900.000 / 2900.000 1360 / 1360 1000 / 1000 Weight 108.862 kg 108.862 kg 108.862 kg 108.046 kg Constitutional Constitutional: no acute distress and obese *Routine HEENT Exam Head: Present normocephalic Eye: Present EOMI and PERRL ENT: Present mucous membranes moist *Routine Neck Exam Neck: Present supple; Absent lymphadenopathy *Routine Respiratory Exam Respiratory: Present CTA bilaterally *Routine Cardiovascular Exam Cardiovascular: Present RRR *Routine Abdominal Exam Abdominal: Present soft Comments: Incision clean however there is surrounding erythema *Routine Extremities Exam Extremities: Absent cyanosis, clubbing or edema *Routine Skin Exam Skin: Present warm; Absent rash *Routine Neurological Exam Neurological: Present alert and oriented X3 Assessment and Plan *Assessment and plan (1) Internal hernia: Status: Acute Category: Medical Code(s): K45.8 - Other specified abdominal hernia without obstruction or gangrene (2) Delivery by caesarean section: Status: Acute Category: Surgical (3) Hypothyroidism: Status: Acute Qualifiers: Hypothyroidism type: unspecified Qualified Code(s): E03.9 - Hypothyroidism, unspecified Category: Medical Code(s): E03.9 - Hypothyroidism, unspecified Plan Sheila Miles is a 25-year-old female who patient presented to the ER several days post section with acute abdominal pain. Her CT shows internal hernia with a possible small bowel obstruction. Recommended general surgery be consulted before accepting for admission. Dr. Parrish was consulted and patient was taken to surgery. Patient is doing well postop. Pain is significantly improved. Internal hernia?reduced per Dr. Parrish on 10/06/2025. No resection required. There was some fluid in the abdomen. ? Today patient tolerating full liquid diet, does have intermittent abdominal pains. Having flatus. No bowel movements. ? Continue [place] 5 to 10 mg for pain as needed, continue Toradol, Dilaudid for breakthrough pain. ? General Surgery following, advance diet to full liquid diet. Advised to continue to monitor inpatient. ? Having flatus, no bowel movement yet. Potassium, sodium stable. ? Encouraging ambulation. #Incisional dermatitis ? Patient is having pruritic erythematous patches around abdominal incision site, and in the lower abdomen. No tenderness, drainage at this time. ? Benadryl has not helped. Will trial prednisone 40 mg, follow-up response. P atient states lesions are pruritic, lower suspicion for infection at this time. Will continue to monitor. Will consider antibiotics if no response from steroids. Delivery by section?seems to be doing well . Can consult OB if needed. Hypothyroidism?continue home levothyroxine 100 mcg daily. TSH normal in July 2025.
[2025-10-09] MEDS: HYDROCODONE/APAP 5/325 MG TABLET 1 TAB PO (15:54)
[2025-10-09 16:00] VITALS: BP 138/71; PULSE 79; RESP 18; TEMP 37; O2SAT 95
[2025-10-09 19:44] VITALS: BP 152/93; PULSE 64; RESP 16; TEMP 36.8; O2SAT 93
[2025-10-09] MEDS: HYDROMORPHONE 2MG/ML SYRINGE 0.5 MG IV (21:00)
[2025-10-09] MEDS: PANTOPRAZOLE 40MG TABLET 40 MG PO (21:02)
[2025-10-09] MEDS: FLUOXETINE 20MG CAPSULE 60 MG PO (21:02)
[2025-10-10] VITALS: BP 152/89; PULSE 61; RESP 18; TEMP 37.2; O2SAT 95
[2025-10-10 04:00] VITALS: BP 173/88; PULSE 63; RESP 14; TEMP 36.9; O2SAT 94; BMI 41.5
--- NOTE | 2025-10-10 04:25 | PC.NURSE ---
Addendum entered by Jaycee Resendiz RN 10/10/25 07:00: Patient was complaining of severe abdominal pain and excessive gas this morning. [place] and Toradol administered per DEC at this time for pain relief. Simethicone tablets administered per DEC at this time for excess gas relief. Original Note: Patient is pleasantly alert and oriented x4. She was observed to be resting in bed with eyes closed, respirations even and unlabored on room air, and no apparent distress throughout the majority of the night. Patient's sister has remained at the bedside. Patient's has remained at the bedside as well; he resides supine in the hospital bassinet during the patient's resting periods. Her bottle-feeds with formula, interacts well with his environment during wakeful periods, and rests without apparent distress. Patient has complained of abdominal pain this shift of which Dilautid was administered once per MAR for severe pain relief. Operative sites (with rosa m still intact) were assessed. Caesarean section incision (horizontal, lower abdominal/upper pubic) is open to air, remains clean and dry, and is without drainage or redness. Exploratory laparotomy incision (vertical, mid-abdominal) is also open to air, remains clean and dry. A light rash is localized to the lap operative site; itching slightly improved. Abdomen is soft and tender upon palpation. She reports passing lots of gas but has not had a bowel movement yet. Bowel sounds active in all quadrants. Physical assessment (see nursing shift biophysical intervention) has been performed as appropriately this shift. Patient is tolerating a full liquid diet well without any nausea/vomiting urges or increasing abdominal pain. Patient gets up with standby assistance as needed during ambulation. Scheduled medications were administered per DEC. At this time, the patient remains resting in bed without any new needs vocalized. Call light within reach.
[2025-10-10] MEDS: LEVOTHYROXINE 100MCG (0.1MG) TAB 100 MCG PO (06:18)
[2025-10-10] MEDS: KETOROLAC 30MG/ML VIAL 30 MG IV (07:00)
[2025-10-10] MEDS: HYDROCODONE/APAP 5/325 MG TABLET 1 TAB PO (07:00)
[2025-10-10] MEDS: SIMETHICONE 80MG CHEWABLE TABLET 160 MG PO (07:00)
[2025-10-10] MEDS: SENNA 8.6MG TABLET 8.6 MG PO (10:07)
--- NOTE | 2025-10-10 11:20 | DIET.NUTRFU ---
Patient has been on liquid diet since 10/05 (clear 12/06-12/09 and full from 10/08 till present) Patient has not had bowel movement, pain meds were adjusted today and BM meds were added to aid in BM. RD did provide diet education about adding in protein and good protein selection. Will continue to monitor diet diet advancement.
[2025-10-10 12:00] VITALS: BP 135/61; PULSE 78; RESP 18; TEMP 36.8; O2SAT 97
[2025-10-10] MEDS: BISACODYL 5MG TABLET 10 MG PO (12:02)
[2025-10-10] MEDS: POLYETHYLENE GLYCOL 3350 17 GM PACKET PO (12:02)
[2025-10-10] MEDS: GLYCERIN ADULT 3GM SUPP 3 GM RC (12:04)
--- NOTE | 2025-10-10 14:38 | EXP.SURG.PN ---
Subjective Narrative: Patient doing well. Has been tolerating full liquids without issue. Itching around her incision is improving. Did have a bowel movement this afternoon. Exam Data for Last 24 hours Vital signs and Labs for Last 24 Hours: Temp Pulse Resp BP Pulse Ox O2 Del Method O2 Flow Rate 98.4 F 63 14 173/88 H 94 L Room Air 2 10/10/25 04:00 10/10/25 04:00 10/10/25 04:00 10/10/25 04:00 10/10/25 04:00 10/10/25 11:00 10/08/25 04:00 I & O for Last 24 hours: Intake & Output 10/08/25 10/09/25 10/10/25 10/11/25 11:59 11:59 11:59 11:59 Intake Total 2590.000 / 2590.000 2330 / 2330 1630 / 1630 Output Total 400 / 400 0 / 0 1 / 1 Balance 2190.000 / 2190.000 2330 / 2330 1629 / 1629 Weight 239 lb 15.994 oz 238 lb 3.2 oz 243 lb *Routine Abdominal Exam Comments: Incision clean. Erythema regressing Progress Note: A&P Assessment and plan (1) Internal hernia: Status: Acute (2) Delivery by caesarean section: Status: Acute (3) Hypothyroidism: Status: Acute Assessment and Plan Assessment and Plan for All Diagnoses:: Should be able to discharge home with advancement to low residue diet with early outpatient follow-up.
--- NOTE | 2025-10-10 14:54 | EXP.DC.SUM ---
General Admission date:: 10/06/25 HPI HPI HPI: 25-year-old female patient presents presents to the ER with abdominal pain. Had emergent on September 30 for preeclampsia. Was discharged home on 10/03 and on the day after discharge she began having some abdominal pain it worsened the following day so she presented to the ER for evaluation. She had some nausea associated with the pain. She was taking her pain medication that was prescribed at discharge but that did not improve her pain. Workup in the ER showed normal vital signs unremarkable lab work except LDH of 297. Urinalysis had 3+ blood. Imaging included CT abdomen pelvis showed findings suggestive of a developing complicated small bowel obstruction with close loop obstruction and or internal hernia. General surgery was consulted and she was taken to the OR. Postop report from Dr. Parrish all bowel was viable so there was no resection. Hernia was reduced and there was some fluid in the abdomen. She has been transferred to the floor for postop care. We did agree to admit with Dr. Parrish in consultation. Hospital Course Hospital Course Hospital Course: Sheila Miles is a 25-year-old female who patient presented to the ER several days post section with acute abdominal pain. Her CT shows internal hernia with a possible small bowel obstruction. Recommended general surgery be consulted before accepting for admission. Dr. Parrish was consulted and patient was taken to surgery. Patient is doing well postop. Pain is significantly improved. Internal hernia ? Surgically reduced by Dr. Parrish on 10/06/2025. No resection required. There was some fluid in the abdomen. ? Overall, patient gradually improved with slowly advancing diet to low residue with good toleration. Having flatus, bowel movements. Ambulating without issues. ? Discussed with general surgery, will discharge patient with close follow-up with Dr. Laughlin on Monday. #Incisional dermatitis ? Patient is having pruritic erythematous patches around abdominal incision site, and in the lower abdomen. No tenderness, drainage at this time. Improved with prednisone 40 mg x 2. Delivery by section?seems to be doing well . Hypothyroidism?continue home levothyroxine 100 mcg daily. TSH normal in July 2025. Total time spent on discharge: 33 minutes on chart review, counseling, documentation, and direct care with patient. Exam Data for Last 24 hours Vital signs and Labs for Last 24 Hours: Temp Pulse Resp BP Pulse Ox O2 Del Method O2 Flow Rate 98.4 F 63 14 173/88 H 94 L Room Air 2 10/10/25 04:00 10/10/25 04:00 10/10/25 04:00 10/10/25 04:00 10/10/25 04:00 10/10/25 11:00 10/08/25 04:00 I & O for Last 24 hours: Intake & Output 10/07/25 10/08/25 10/09/25 10/10/25 23:59 23:59 23:59 23:59 Intake Total 4000.000 / 4000.000 1360 / 1360 2930 / 3080 150 / 150 Output Total 1100 / 1100 0 / 0 0 / 0 Balance 2900.000 / 2900.000 1360 / 1360 2930 / 3080 149 / 149 Weight 108.862 kg 108.862 kg 108.046 kg 110.223 kg Constitutional Constitutional: no acute distress and obese *Routine HEENT Exam Head: Present normocephalic Eye: Present EOMI and PERRL ENT: Present mucous membranes moist *Routine Neck Exam Neck: Present supple; Absent lymphadenopathy *Routine Respiratory Exam Respiratory: Present CTA bilaterally *Routine Cardiovascular Exam Cardiovascular: Present RRR *Routine Abdominal Exam Abdominal: Present soft Comments: Incision clean. Erythema regressing *Routine Extremities Exam Extremities: Absent cyanosis, clubbing or edema *Routine Skin Exam Skin: Present warm; Absent rash *Routine Neurological Exam Neurological: Present alert and oriented X3 DS: Diagnosis Discharge Diagnosis (1) Internal hernia: Status: Acute Code(s): K45.8 - Other specified abdominal hernia without obstruction or gangrene (2) Delivery by caesarean section: Status: Acute (3) Hypothyroidism: Status: Acute Code(s): E03.9 - Hypothyroidism, unspecified Qualifiers: Hypothyroidism type: unspecified Qualified Code(s): E03.9 - Hypothyroidism, unspecified Meds Home Medications and Allergies Home Medications ?Medication ?Instructions ?Recorded ?Confirmed ?Type fluoxetine 60 mg tablet 60 mg PO DAILY #30 tabs 08/08/25 10/06/25 Rx levothyroxine 100 mcg tablet 100 mcg PO DAILY #30 tabs 09/08/25 10/06/25 Rx (Synthroid) cyclobenzaprine 5 mg tablet 5 mg PO BIDP PRN muscle spasm 09/30/25 10/06/25 History montelukast 10 mg tablet 10 mg PO HS 09/30/25 10/06/25 History promethazine 12.5 mg tablet 12.5 mg PO Q6HP PRN vomiting 09/30/25 10/06/25 History acetaminophen 500 mg tablet 500 mg PO Q6H PRN fever or pain 10/03/25 10/06/25 Rx #30 tabs ferrous sulfate 325 mg (65 mg 325 mg PO DAILY #30 tabs 10/03/25 10/06/25 Rx iron) tablet,delayed release ibuprofen 800 mg tablet 800 mg PO Q8H PRN pain #60 tabs 10/03/25 10/06/25 Rx oxycodone 5 mg tablet 5 mg PO Q8H PRN pain #20 tabs 10/03/25 10/06/25 Rx sennosides 8.6 mg tablet (Senna 8.6 mg PO BIDP PRN Constipation 10/03/25 10/06/25 Rx Lax) #60 tabs simethicone 125 mg tablet 125 mg PO DAILY PRN abdominal 10/03/25 10/06/25 Rx distention #60 tabs buspirone 10 mg tablet 10 mg PO BID PRN anxiety 10/06/25 10/06/25 History New Prescriptions to Start Prescriptions: Allergies Allergy/AdvReac Type Severity Reaction Status Date / Time COVID- vaccine, Allergy Severe Anaphylaxis Verified 09/23/25 15:29 recombinant (Nova prochlorperazine (From Allergy Severe Other Verified 09/23/25 15:29 Compazine) influenza A (H5N1) virus AdvReac Severe Other Verified 09/23/25 15:29 vaccine mo ondansetron (From Zofran) AdvReac Nausea Verified 09/23/25 15:29 Discharge Plan Disposition Patient Disposition: Home, Self-Care Condition: Fair Discharge Order Discharge Orders: Discharge Order (Routine); Ordered 10/10/25 Ordered By: Drake Finney Follow up Plan Follow up with: Sheila Andrade DO [Staff Physician, MARKET RESEARCH ANALYST] - 10/21/25 3:00 pm Referral Note: Sanford Miller MD [Primary Care Provider, Internal Medicine] - 10/20/25 10:00 am Mayur Laughlin MD [Staff Physician, General Surgery] - 10/13/25 Prescriptions/Medication Reconciliation: Continued fluoxetine 60 mg tablet 60 mg PO DAILY Qty: 30 5RF levothyroxine [Synthroid] 100 mcg tablet 100 mcg PO DAILY Qty: 30 1RF promethazine 12.5 mg tablet 12.5 mg PO Q6HP PRN (Reason: vomiting) montelukast 10 mg tablet 10 mg PO HS cyclobenzaprine 5 mg tablet 5 mg PO BIDP PRN (Reason: muscle spasm) sennosides [Senna Lax] 8.6 mg Tablet 8.6 mg PO BIDP PRN (Reason: Constipation) Qty: 60 2RF ibuprofen 800 mg tablet 800 mg PO Q8H PRN (Reason: pain) Qty: 60 2RF acetaminophen 500 mg tablet 500 mg PO Q6H PRN (Reason: fever or pain) Qty: 30 3RF simethicone 125 mg tablet 125 mg PO DAILY PRN (Reason: abdominal distention) Qty: 60 2RF ferrous sulfate 325 mg (65 mg iron) tablet,delayed release (DR/EC) 325 mg PO DAILY Qty: 30 3RF oxycodone 5 mg tablet 5 mg PO Q8H PRN (Reason: pain) Qty: 20 0RF buspirone 10 mg tablet 10 mg PO BID PRN (Reason: anxiety) Problem Reconciliation Problems Reviewed?: Yes Patient Discharge Instructions Patient Instructions: DI for Exploratory Laparotomy, DI for Surgical Site Infection, Catheter-Associated Urinary Tract Infection, Stop Light Infection Print Language: [place] Providers Primary Care Provider: Sanford Miller Admit Provider: Dyllan Domingo Attending Provider: Dyllan Domingo
--- NOTE | 2025-10-13 10:49 | SW/DCPLANNER ---
Spoke with patient on the phone. Patient stated that she is doing good. Patient stated that she is aware of her upcoming appointments. Patient stated that she was not prescribed any new medicine. Patient stated that she has no concerns or questions at this time. Elizabeth Dumont
== END 2025-10-10 16:39 | disposition home or self-care (01) | DRG 769 ==
LOC: ER 22:02 → OR 23:15 → 2ND 10-06 02:35
PROVIDERS: Student in an Organized Health Care Education/Training Program; Surgery; Admitting Provider Internal Medicine Adolescent Medicine; Emergency Provider Student in an Organized Health Care Education/Training Program; PCP Family Medicine; Visit Provider Internal Medicine Adolescent Medicine
PROC: (CPT 49000; principal; 2025-10-05 23:00)
DX: O99.63 Diseases of the digestive system complicating the puerperium (principal); K46.0 Unspecified abdominal hernia with obstruction, without gangrene; D62 Acute posthemorrhagic anemia; L30.8 Other specified dermatitis; L76.82 Other postprocedural complications of skin and subcutaneous tissue; Y83.8 Other surgical procedures as the cause of abnormal reaction of the patient, or of later complication, without mention of misadventure at the time of the procedure; O90.89 Other complications of the puerperium, not elsewhere classified; O99.285 Endocrine, nutritional and metabolic diseases complicating the puerperium; E03.9 Hypothyroidism, unspecified; Z79.890 Hormone replacement therapy
CPT/HCPCS: 36415; 36430; 51702; 74177; 80053; 81001; 83615; 83735; 85014; 85018; 85025; 85610; 86850; 87086; 96374; 97162; 97530; 99221; 99285; J0696; J1100; J1171; J1650; J1836; J1885; J2003; J2250; J2270; J2405; J2470; J2704; J3010; J7030; J7050; J7120; P9016; Q9967